=== PATIENT | female | born 1950 | race Caucasian/White ===

== ENCOUNTER 2020-08-07 05:54 | Emergency (ER) | payer MEDICARE, MEDICAID, SELFPAY ==
--- NOTE | ~2020-08-07 | XR_ITS ---
EXAMINATION: XR femur RT min 2V DATE: 08/07/2020 06:18 INDICATION: Right thigh pain. TECHNIQUE: 2 views of right femur on 4 radiographs were obtained. COMPARISON: Hip and pelvis radiographs 04/17/2017 FINDINGS: Bone alignment is normal. No fracture. There is mild right hip osteoarthritis and moderate right knee osteoarthritis. No knee joint effusion. IMPRESSION: 1. Polyarticular osteoarthritis. Reviewed, dictated and finalized at location [facility].
[2020-08-07 05:54] VITALS: BP 140/85; PULSE 96; RESP 16; TEMP 36.8; O2SAT 98
--- NOTE | 2020-08-07 07:30 | ED.LOWEXIN ---
HPI - Extremity Injury (Lower) General Chief Complaint: Extremity Injury, Lower Stated Complaint: r thigh pain Time Seen by Provider: 08/07/20 07:28 Source: patient, EMS and RN notes reviewed Mode of arrival: EMS History of Present Illness HPI Narrative: Patient tripped and fell 3 days ago, subsequently started having pain at the right knee. Patient denies other injuries. Patient denies any fever, chills, nausea, vomiting, diarrhea, urinary symptoms, abdominal pain chest pain shortness of breath or back pain. History of arthritis Related Data Home Medications Medication Instructions Recorded Confirmed lisinopril-hydrochlorothiazide tablet 08/07/20 08/07/20 metformin mg 08/07/20 simvastatin mg 08/07/20 Allergies Allergy/AdvReac Type Severity Reaction Status Date / Time No Known Allergies Allergy Verified 06/14/18 13:39 Review of Systems Review of Systems: Narrative: CONSTITUTIONAL: Denies fever, chills, or sweats. EYES: Denies visual changes, redness, or discharge. ENT: Denies rhinorrhea, congestion, sore throat, or otalgia. CARDIOVASCULAR: Denies chest pain, palpitations, or edema. RESPIRATORY: Denies cough or dyspnea. GASTROINTESTINAL: Denies abdominal pain, nausea, vomiting, or diarrhea. GENITOURINARY: Denies dysuria or hematuria. SKIN: Denies rash or itching. MUSCULOSKELETAL: Denies back pain, joint pain, or myalgia. NEUROLOGIC: Denies headache, numbness, or weakness. PSYCHIATRIC: Denies anxiety or depression. Exam Narrative: Exam Narrative: General appearance: Well-developed, well-nourished Skin: Normal color Head: Normocephalic, nontraumatic Eyes: Clear conjunctiva ENT: Oropharynx normal, ears normal, nose normal Neck: Supple, nontender Chest and respiratory: Airway patent, no respiratory distress, no accessory muscle use Heart: Regular rate/rhythm Abdomen: Soft, nontender, no organomegaly, quiet bowel sounds Vascular: Normal peripheral pulses, normal capillary refill. Musculoskeletal: Right knee exam showed no bruises, no swelling, no deformity, slight anterior medial tenderness, good range of motion. Neurologic: Alert and oriented ?3, t Course Course Emergency Course: Stable Vital Signs Vital signs: Vital Signs Temperature 36.8 C 08/07/20 05:54 Pulse Rate 96 08/07/20 05:54 Respiratory Rate 16 08/07/20 05:54 Blood Pressure 140/85 08/07/20 05:54 Pulse Oximetry 98 08/07/20 05:54 Temperature 36.8 C 08/07/20 05:54 Pulse Rate 96 08/07/20 05:54 Respiratory Rate 16 08/07/20 05:54 Blood Pressure 140/85 08/07/20 05:54 Pulse Oximetry 98 08/07/20 05:54 MDM - Extremity Injury (Lower) MDM Narrative Medical decision making narrative: Right knee contusion/sprain/strain is my concern. X-ray ordered Differential Diagnosis Differential diagnosis: Likely other (Right knee contusion, sprain, strain, fracture) Critical Care Time Critical Care Time Critical Care Time: No Discharge Plan Discharge Clinical Impression: Acute pain of right knee Patient Disposition: Home, Self-Care Condition: Stable Instructions: Knee Pain (ED) Additional Instructions: Return if symptoms are worsening , call your family physician for appointment, take Tylenol as as needed for aches and pain, continue home medications. Prescriptions: New naproxen 375 mg tablet 375 mg PO BID PRN (Reason: pain) Qty: 14 RF: 0 No Action lisinopril-hydrochlorothiazide 20-12.5 mg tablet RF: 0 simvastatin 40 mg tablet RF: 0 metformin 1,000 mg tablet RF: 0 Follow-up/Referrals: Kirsty,Danae Wagner MD [Primary Care Provider] -
--- NOTE | 2020-08-07 07:44 | PC.NURSE ---
LEFT MESSAGE WITH TRE LETTING HER KNOW PT IS HERE PER THE PT'S REQUEST
--- NOTE | 2020-08-07 08:45 | PC.NURSE ---
CALLED PT'S CAYLA TOLEDO AND SHE WILL COME TO ED TO PICK PT UP
[2020-08-07 08:50] VITALS: BP 131/97; PULSE 76; RESP 16; O2SAT 100
== END 2020-08-07 08:50 | disposition home or self-care (01) ==
PROVIDERS: Emergency Provider Emergency Medicine; PCP Family Medicine
DX: M19.90 Unspecified osteoarthritis, unspecified site (principal)
CPT/HCPCS: 73552; 99283

== ENCOUNTER 2020-08-07 15:03 | Inpatient (IN) | payer MEDICARE, MEDICAID, SELFPAY ==
[2020-08-07] VITALS (8 sets, daily range): BP systolic 112–168; BP diastolic 50–95; PULSE 85–98; RESP 16–24; TEMP 36.6–37.1; O2SAT 95–100; BMI 57.0
--- NOTE | ~2020-08-07 | CT_ITS ---
EXAMINATION: CT brain wo con DATE: 08/07/2020 15:43 INDICATION: Fall TECHNIQUE: Computed tomography (CT) of the head was performed without intravenous contrast. The mA wa s adjusted according to patient size. Iterative reconstruction technique was employed. Exam dose: 60 5.33 mGy-cm total exam DLP. COMPARISON: None FINDINGS: Prominent bilateral carotid siphon and supraclinoid internal carotid artery calcifications and vertebrobasilar artery calcification are noted. There is nonspecific diminished attenuation of the subcortical and periventricular cerebral white mat ter, likely due to chronic small vessel ischemic changes. Bilateral basal ganglia calcification. Central and cortical cerebral and cerebellar prominent atrophy. No intracranial mass lesion or hemorrhage or cerebrovascular accident is evident. No midline shift or mass effect effect. No subdural or epidural hematoma. The mastoid air cells and paranasal sinuses are normally developed and aerated. No fracture or bone destruction of the cranial vault is evident. IMPRESSION: Prominent cerebral atherosclerosis and chronic small vessel ischemic changes of cerebral white matter Prominent central and cortical cerebral and cerebellar atrophy Reviewed, dictated and finalized at [facility]. Reviewed, dictated and finalized at location [facility]. IMPRESSION: Prominent cerebral atherosclerosis and chronic small vessel ischem ic changes of cerebral white matter Prominent central and cortical cerebral and cerebellar atrophy
--- NOTE | ~2020-08-07 | MR_ITS ---
EXAMINATION: MR hip RT wo con DATE: 08/09/2020 14:19 INDICATION: Right hip pain. TECHNIQUE: Magnetic resonance imaging (MRI) of the right hip was performed without intravenous contra st. Sequences included axial and coronal PD-weighted FS FSE and axial T1-weighted FSE of the pelvis. Sequences of the hip included 2D FIESTA, T1-weighted fast GRE, and axial, coronal, and sagittal PD-we ighted FS FSE. COMPARISON: Right femur CT 08/08/2020, chest 2 views 06/14/2018 FINDINGS: There is lumbar levoscoliosis and moderate spondylosis. There are chronic compression fractures of L3 on L4. There is a nondisplaced intertrochanteric fracture of proximal right femur. There is mild ost eoarthritis of the hips. There is edema in right gluteus minimus and gluteus medius muscles, consiste nt with mild strains. There is moderate right-sided trochanteric bursitis. There is a small right hip joint effusion. IMPRESSION: 1. Nondisplaced intertrochanteric fracture of proximal right femur. 2. Mild osteoarthritis of the hips. Reviewed, dictated and finalized at location [facility].
--- NOTE | ~2020-08-07 | CT_ITS ---
EXAMINATION: CT femur RT wo con EXAM DATE: 08/08/2020 15:58 INDICATION: Hip/knee pain out of proportion to exam. TECHNIQUE: Spiral CT femur RT was performed without contrast. Axial, coronal and sagittal images w ere reviewed. The dose-length product (DLP) for this examination was 1728.67 mGy-cm. The exposure w as tailored according to patient size (auto mA exposure control), and iterative reconstruction (ASIR) was used as additional dose reduction technique. Correlation is made to x-ray 08/07/2020. FINDINGS: There is acute closed posttraumatic nondisplaced fracture of the greater trochanter, fractu re line is best appreciated on the coronal sequence, fracture lines indicated. No definite evidence t hat this extends through the intertrochanteric region or femoral neck. The right patella, acetabulum and rami intact. There is moderate knee, mild hip primary osteoarthritis. IMPRESSION: Acute nondisplaced right greater trochanteric fracture. These are typically treated con servatively. No definite involvement of femoral neck, but MRI examination without contrast should be considered to exclude that possibility. Reviewed, dictated and finalized at location A. IMPRESSION: Acute nondisplaced right greater trochanteric fracture. These are typically treated conservatively. No definite involvement of femoral neck, but MRI examination without contrast should be considered to exclude that possibil ity.
--- NOTE | ~2020-08-07 | XR_ITS ---
XR chest 1V portable DATE: 08/07/2020 15:56 INDICATION: Confusion, cough TECHNIQUE: Portable AP chest on 08/07/2020 at 1445 hours COMPARISON: 06/14/2018 PA and lateral chest FINDINGS: No pulmonary infiltrate or consolidation, pulmonary vascular congestion or pleural effusion or pneumothorax. Heart size is not optimally assessed on AP projection because of magnification. Diffuse osteopenia. Prominent deformity at the proximal right humerus. IMPRESSION: No active pulmonary disease Reviewed, dictated and finalized at location [facility]. IMPRESSION: No active pulmonary disease
--- NOTE | 2020-08-07 15:06 | ECG_ITS ---
Measurements Intervals [place] Rate: 94 P: 40 WV: 137 QRS: -42 QRSD: 89 T: 34 QT: 349 QTc: 437 Interpretive Statements SINUS RHYTHM LEFT AXIS DEVIATION LOW QRS VOLTAGE IN PRECORDIAL LEADS POOR R WAVE PROGRESSION, ANTERIOR LEADS INFERIOR INFARCT, AGE INDETERMINATE BASELINE ARTIFACT- I, III, AVL, V1 ABNORMAL ECG Electronically Signed On 08-07-2020 19:59:36 CDT by Khoi Correa D.O.
[2020-08-07 16:36] LABS: Add Urine Microscopic? YES; Appearance Urine Cloudy (Clear); Bacteria Urine Trace /hpf; Bilirubin Urine Negative (Negative); Blood Urine Negative (Negative); Color Urine Yellow (Yellow); Glucose Urine UA Negative (Negative); Ketones Urine Negative (Negative); Leukocyte Esterase Ur Trace LEU/UL (Negative); Mucus Urine Rare /lpf; Nitrate Urine Negative (Negative); Protein Urine 2+ mg/dL (Negative); RBC Urine 0-2 /hpf (0-2); Specific Grav Ur 1.016 (1.001-1.035); Squamous Epithelial Cell Urine Rare /hpf (Few); Urobilinogen Urine Negative mg/dL (<2.0)
[2020-08-07 16:54] LABS: Basophils Percent Auto 0.3 % (0.2-1.2); Eosinophils Absolute Auto 0.1 K/mm3 (0-0.3); Eosinophils Percent Auto 0.4 % (0-4.4); Hematocrit 33.4 % (37.0-47.0); Hemoglobin 10.8 g/dL (12.0-15.0); Immature Granulocyte Absolute 0.09 K/mm3 (0.00-0.031); Immature Granulocyte Percent A 0.6 % (0-0.5); Lymphocytes Absolute Auto 1.87 K/mm3 (0.9-3.2); Lymphocytes Percent Auto 12.2 % (18.3-44.2); Mean Corpuscular HGB Conc 32.3 g/dl (32-36); Mean Corpuscular Hemoglobin 28.3 pg (26-34); Mean Corpuscular Volume 87.7 fl (80-100); Mean Platelet Volume 10.3 fl (7.4-10.4); Monocytes Absolute Auto 0.7 K/mm3 (0.1-0.6); Monocytes Percent Auto 4.6 % (2.6-8.5); Neutrophils Absolute Auto 12.6 K/mm3 (1.3-6.7); Neutrophils Percent Auto 81.9 % (45.5-73.1); Platelet Count Result 345 k/mm3 (150-375); Red Blood Count 3.81 M/mm3 (4.2-5.4); White Blood Count 15.3 K/mm3 (4.5-10.0)
[2020-08-07 17:04] LABS: Alanine Aminotransferase 14 U/L (4-35); Albumin Level 4.1 g/dL (3.5-5.1); Alkaline Phosphatase 87 U/L (38-126); Anion Gap 12 mmol/L (8-16); Aspartate Amino Transferase 28 U/L (14-36); Bilirubin,Total 0.5 mg/dL (0.2-1.3); Blood Urea Nitrogen 33 mg/dL (7-17); Calcium 8.9 mg/dL (8.4-10.2); Carbon Dioxide 21 mmol/L (22-30); Chloride 107 mmol/L (98-107); Creatine Kinase 35 U/L (30-135); Estimated CRCL calculation 33 ml/min; Estimated Glomerular Filt Rate 40; Glucose 180 mg/dL (65-105); Sodium 140 mmol/L (137-145)
[2020-08-07 17:06] LABS: Partial Thromboplastin Time 20.5 SECONDS (22.3-36.8); Prothrombin Time 13.4 Seconds (11.1-14.7)
--- NOTE | 2020-08-07 17:06 | ED.WEAKNESS ---
HPI - Weakness General Chief complaint: Weakness Stated complaint: WEAKNESS Time Seen by Provider: 08/07/20 15:06 Source: patient, EMS and RN notes reviewed Mode of arrival: EMS Limitations: no limitations History of Present Illness HPI Narrative: Patient is 69 years old white female came to the emergency room by ambulance because of unable to take care of herself, falling, general weakness over the last few days. Patient lives alone, Patient denies any fever, chills, nausea, vomiting, abdominal pain, back pain, chest pain, shortness of breath or headache. Patient complaining of right knee pain, x-ray earlier today showed no acute abnormality. Related Data Home Medications Medication Instructions Recorded Confirmed lisinopril-hydrochlorothiazide tablet 08/07/20 08/07/20 metformin mg 08/07/20 simvastatin mg 08/07/20 Allergies Allergy/AdvReac Type Severity Reaction Status Date / Time No Known Allergies Allergy Verified 06/14/18 13:39 Review of Systems Review of Systems: Narrative: CONSTITUTIONAL: Denies fever, chills, or sweats. EYES: Denies visual changes, redness, or discharge. ENT: Denies rhinorrhea, congestion, sore throat, or otalgia. CARDIOVASCULAR: Denies chest pain, palpitations, or edema. RESPIRATORY: Denies cough or dyspnea. GASTROINTESTINAL: Denies abdominal pain, nausea, vomiting, or diarrhea. GENITOURINARY: Denies dysuria or hematuria. SKIN: Denies rash or itching. MUSCULOSKELETAL: Denies back pain, joint pain, or myalgia. NEUROLOGIC: Denies headache, numbness, or weakness. PSYCHIATRIC: Denies anxiety or depression. Exam Narrative: Exam Narrative: General appearance: Well-developed, well-nourished, poor hygiene, no family member at the bedside Skin: Normal color Head: Normocephalic, nontraumatic Eyes: Clear conjunctiva ENT: Oropharynx normal, ears normal, nose normal Neck: Supple, nontender Chest and respiratory: Airway patent, no respiratory distress, no accessory muscle use Heart: Regular rate/rhythm Abdomen: Soft, nontender, no organomegaly, quiet bowel sounds Vascular: Normal peripheral pulses, normal capillary refill. Musculoskeletal: Diffuse tenderness of the right knee anteriorly, good range of motion, no swelling or bruises Neurologic: Alert and oriented ?3, MEDICAL OFFICE RECEPTIONIST is normal as tested, no gross motor deficit, hearing impairment Course Course Emergency Course: Stable Vital Signs Vital signs: Vital Signs Temperature 36.6 C 08/07/20 15:10 Pulse Rate 98 08/07/20 15:10 Respiratory Rate 16 08/07/20 15:10 Blood Pressure 150/82 H 08/07/20 15:10 Pulse Oximetry 98 08/07/20 15:10 Temperature 36.6 C 08/07/20 15:10 Pulse Rate 98 08/07/20 15:10 Respiratory Rate 16 08/07/20 15:10 Blood Pressure 150/82 H 08/07/20 15:10 Pulse Oximetry 98 08/07/20 15:10 MDM - Weakness MDM Narrative Medical decision making narrative: Patient came with general weakness and multiple falls. Please look at my differential diagnosis below. Labs, CT head, chest x-ray, UA ordered. Further plan to follow Differential Diagnosis Differential diagnosis: Likely anemia, hypoglycemia, hypothyroidism, rhabdomyolysis, dehydration and other (Electrolyte imbalance, urinary tract infection, pneumonia, intracranial hemorrhage) Lab Data Result diagrams: 08/07/20 16:43 08/07/20 16:43 Labs: Lab Results 08/07/20 08/07/20 08/07/20 Range/Units 15:34 16:22 16:43 WBC 15.3 H (4.5-10.0) K/mm3 RBC 3.81 L (4.2-5.4) M/mm3 Hgb 10.8 L (12.0-15.0) g/dL Hct 33.4 L (37.0-47.0) % MCV 87.7 (80-100) fl MCH 28.3 (26-34) pg MCHC 32.3 (32-36) g/dl RDW 13.0 (11.5-14.5) % P
[2020-08-07] MEDS: ONDANSETRON INJ 4 MG/2 ML VIAL 8 MG IV PUSH (17:56)
[2020-08-07] MEDS: SODIUM CHLORIDE 0.9% IV 1,000 ML 999 ML IV CONT (17:56)
--- NOTE | 2020-08-07 18:31 | PC.NURSE ---
SPOKE WITH TRE (PT'S NIECE) AND GAVE UPDATE PER PT'S REQUEST.
--- NOTE | 2020-08-07 20:27 | PC.NURSE ---
Attempted to call report. States nurse is in iso room and will call back.
--- NOTE | 2020-08-07 20:27 | PC.NURSE ---
Pt presented to ED for fall at home where she denies hitting her head and loc. Pt state she fell because her right leg is sometime painful and gave out on her. Pt states she is in a little bit of pain in regards to right leg and is currently refusing pain medications. Pt noted to be alert and oriented 3-4. Pt malodorous and noted to be living alone. States she sometime has a hard time manipulating her home environment due to her right leg. Caregiver presents to home x2 days per week to assist. Pt has no complaints or concerns voiced at this time and is currently resting on cart in its lowest position with call button and personal items within reach. Vitals are stable and pt in no obvious distress. Advised to press call button for assistance.
[2020-08-07] MEDS: SODIUM CHLORIDE 0.9% IV 1,000 ML 125 ML IV CONT (20:40)
--- NOTE | 2020-08-07 20:50 | PC.NURSE ---
Report called to Crystal. Onofre to send pt to floor.
--- NOTE | 2020-08-07 21:27 | PM.IMHP ---
H&P: HPI History of Present Illness Date/Time: 08/07/20 21:27 Chief Complaint: recurrent falls Narrative: Patient is 69 years old white female came to the emergency room by ambulance because of unable to take care of herself, falling, general weakness over the last few days. Patient lives alone and reports no other isses. no fever, chills, sob, chesatpin, nausea, vomitign, abdominal pain, back pain, headache. she was in the ed earlier with fall and had right knee pain and xray showed arthritis without any fracture. she is noted to ahve uti with leukocytosis. heat ct negative. cxr negative. Review of Systems Review of Systems: Narrative: - CONSTITUTIONAL: Denies weight loss, fever and chills. - HEENT: Denies changes in vision and hearing - RESPIRATORY: Denies SOB and cough. - CV: Denies palpitations and CP. - GI: Denies abdominal pain, nausea, vomiting and diarrhea. - : Denies dysuria and urinary frequency. - MSK: Denies myalgia and joint pain. - SKIN: Denies rash and pruritus. - NEUROLOGICAL: Denies headache and syncope. - PSYCHIATRIC: Denies recent changes in mood. Denies anxiety and depression. All systems reviewed & are unremarkable except as noted in HPI and below Constitutional: Constitutional: Reports fatigue and Reports weakness Neurologic: Reports weakness Endocrine: Endocrine: Reports fatigue PMFSH Social History Social History Smoking status: Never smoker Second hand tobacco smoke exposure: No Alcohol intake: former Substance use: never Gender identity (if verbalized by the patient): Female Sexual Orientation (if Verbalized by the Patient): Straight or Heterosexual Spiritual care concerns: No Meds Home Medications and Allergies Home Medications Medication Instructions Recorded Confirmed Type lisinopril-hydrochlorothiazide tablet 08/07/20 08/07/20 History metformin mg 08/07/20 History naproxen 375 mg PO BID PRN #14 tablet 08/07/20 Rx simvastatin mg 08/07/20 History Allergies Allergy/AdvReac Type Severity Reaction Status Date / Time No Known Allergies Allergy Verified 08/07/20 19:31 Vital Signs Vital Signs - 24 hr 08/07/20 15:10 08/07/20 15:30 08/07/20 16:30 Temperature 98 F Pulse Rate 98 95 90 Respiratory Rate 16 16 20 Blood Pressure 150/82 H 137/76 157/95 H Pulse Oximetry 98 96 97 08/07/20 17:30 08/07/20 18:31 08/07/20 20:31 Temperature 98.7 F Pulse Rate 95 89 85 Respiratory Rate 18 21 H 24 H Blood Pressure 157/92 H 168/79 H 132/75 Pulse Oximetry 100 95 98 Exam Narrative: Exam Narrative: GENERAL: The patient is well developed, not in acute distress HEENT: Nonicteric sclerae, PERRLA, EOMI. Oropharynx clear. Moist mucous membranes. Conjunctivae appear well perfused. CHEST: Chest wall is nontender. HEART: Regular rate and rhythm without murmur, rubs, or gallops LUNGS: Clear to auscultation bilaterally. no respiratory distress ABDOMEN: Soft, positive bowel sounds, non-tender, no organomegaly. SKIN: No rash, no excessive bruising, petechiae, or purpura. NEUROLOGIC: Cranial nerves II-XII intact, alert and oriented x 3, no gross motor deficits EXTREMITIES: no edema, cyanosis or clubbing Extrem: General: normal exam except as noted and no edema H&P: Results Labs Labs: Short CBC 08/07/20 08/07/20 Range/Units 16:43 16:43 WBC 15.3 H (4.5-10.0) K/mm3 Hgb 10.8 L (12.0-15.0) g/dL Hct 33.4 L (37.0-47.0) % Plt Count 345 (150-375) k/mm3 Creatinine 1.30 H (0.7-1.0) mg/dL BMP 08/07/20 16:43 Sodium 140 Potassium 4.0 Chloride 107 Carbon Dioxide 21 L BUN 33 H Creatinine 1.30 H Glucose 180 H Calcium 8.9 Cardiac Enzymes 08/07/20 Range/Units 16:43 Total Creatine Kinase 35 (30-135) U/L Liver Function 08/07/20 Range/Units 16:43 Total Bilirubin 0.5 (0.2-1.3) mg/dL AST 28 (14-36) U/L ALT 14 (4-35) U/L Alkaline Ofe
[2020-08-07] MEDS: SIMVASTATIN 20 MG TABLET 40 MG BY MOUTH (21:30)
[2020-08-07 22:18] LABS: Hemoglobin A1C 6.8 % (<5.7)
--- NOTE | 2020-08-07 22:28 | ADMGEN ---
This patient, Ольга Marie, was admitted to [facility] Room 324-01 at 2205. Patient/family oriented to hospital policies and general routines including ID bracelet, bed and alarms, visiting hours, pain management, procedures, bathroom and other care routines, personal items, smoking policy, room service/diet, and visiting hours. Information on how to activate the Rapid Response Team has been discussed. Patient/Family are encouraged to report perceived risks to care and to ask questions if they do not understand what they are told or what they should do.
[2020-08-08] VITALS (8 sets, daily range): BP systolic 97–141; BP diastolic 58–91; PULSE 71–106; RESP 16–20; TEMP 36.1–36.7; O2SAT 93–100
[2020-08-08 06:27] LABS: Basophils Percent Auto 0.3 % (0.2-1.2); Eosinophils Absolute Auto 0.1 K/mm3 (0-0.3); Hematocrit 30.3 % (37.0-47.0); Hemoglobin 9.5 g/dL (12.0-15.0); Immature Granulocyte Absolute 0.05 K/mm3 (0.00-0.031); Immature Granulocyte Percent A 0.5 % (0-0.5); Lymphocytes Absolute Auto 2.56 K/mm3 (0.9-3.2); Mean Corpuscular HGB Conc 31.4 g/dl (32-36); Mean Corpuscular Hemoglobin 27.9 pg (26-34); Mean Corpuscular Volume 88.9 fl (80-100); Mean Platelet Volume 10.2 fl (7.4-10.4); Monocytes Absolute Auto 0.8 K/mm3 (0.1-0.6); Monocytes Percent Auto 8.5 % (2.6-8.5); Neutrophils Absolute Auto 6.3 K/mm3 (1.3-6.7); Neutrophils Percent Auto 63.7 % (45.5-73.1); Platelet Count Result 320 k/mm3 (150-375); Red Blood Count 3.41 M/mm3 (4.2-5.4); Red Cell Distribution Width 12.9 % (11.5-14.5); White Blood Count 9.9 K/mm3 (4.5-10.0)
[2020-08-08 06:42] LABS: Anion Gap 8 mmol/L (8-16); Blood Urea Nitrogen 30 mg/dL (7-17); Carbon Dioxide 24 mmol/L (22-30); Chloride 110 mmol/L (98-107); Estimated CRCL calculation 51 ml/min; Estimated Glomerular Filt Rate 44; Glucose 111 mg/dL (65-105); Potassium 4.4 mmol/L (3.4-5.0); Sodium 142 mmol/L (137-145)
[2020-08-08 08:15] LABS: Glucose Point of Care 94 mg/dl (65-105)
[2020-08-08 09:16] LABS: Glucose Point of Care 115 mg/dl (65-105)
[2020-08-08 11:26] LABS: Glucose Point of Care 152 mg/dl (65-105)
--- NOTE | 2020-08-08 12:55 | PM.IMPN ---
Progress Note: A&P Assessment and Plan (1) UTI (urinary tract infection): Code(s): N39.0 - Urinary tract infection, site not specified Status: Acute Assessment and Plan: Patient's UA suspicious for UTI although patient is having minimal symptoms with the exception generalized weakness which is new -she was started on ceftriaxone -await urine culture and adjust antibiotics as necessary (2) Unable to ambulate: Code(s): R26.2 - Difficulty in walking, not elsewhere classified Status: Acute Assessment and Plan: Patient tells me that she usually ambulates throughout her house with minimal pain. However, starting yesterday after her fall she has not been able to ambulate without extreme pain. She had pain to palpation and any range of movement to her right leg. -will order CT of femur which will include the knee and the hip -x-ray without acute abnormality -consider restarting naproxen if the CT is negative for acute pathology (3) Weakness: Code(s): R53.1 - Weakness Status: Acute Assessment and Plan: As above -continue antibiotic -continue PT and OT (4) Falls frequently: Code(s): R29.6 - Repeated falls Status: Acute Assessment and Plan: Continue PT and OT (5) MOY (acute kidney injury): Code(s): N17.9 - Acute kidney failure, unspecified Status: Acute Assessment and Plan: Patient's creatinine is 1.2 -continue ceftriaxone -will stop IV fluids at this time as she is eating and will monitor with daily labs (6) Contusion of knee, right: Qualifiers: Encounter type: subsequent encounter Qualified Code(s): S80.01XD - Contusion of right knee, subsequent encounter Code(s): S80.01XA - Contusion of right knee, initial encounter Status: Acute Assessment and Plan: As above (7) Leukocytosis: Code(s): D72.829 - Elevated white blood cell count, unspecified Status: Acute Assessment and Plan: Resolved -continue ceftriaxone (8) Type 2 diabetes mellitus: Code(s): E11.9 - Type 2 diabetes mellitus without complications Status: Acute Assessment and Plan: Last glucose 152 -A1c 6.8 -hold metformin (9) Hypertension: Code(s): I10 - Essential (primary) hypertension Status: Acute Assessment and Plan: Last blood pressure 131/91 -will resume lisinopril and hydrochlorothiazide Time Spent With Patient Time with patient: 25 - 35 minutes Subjective Date/time seen: 08/08/20 12:55 Interval history: Pt is a 69 year old female here for weakness, fall as and right hip/leg pain. Patient was seen today and states she has significant pain in her right leg. She rates this at a 7/10 with no numbness or tingling. She said she fell on this hip yesterday and prior to that she was able to walk around her house with minimal pain. Pt denies nausea, vomiting, fevers, chills, constipation, diarrhea, dysuria, hematuria, chest pain, sob, or abdominal pain. Review of Systems Review of Systems: All systems reviewed & are unremarkable except as noted in HPI and below Exam Narrative: Exam Narrative: General: Overweight patient resting comfortably in bed in no acute distress HEENT: normocephalic Neck: supple Neuro: Alert and oriented x4 CV:RRR Resp:CTA Abd: Soft, non distended. No pain to palpation. Positive bowel sounds Extremities:pain to palpation to the right hip with pain with any ROM exercises. No left leg pain. No swelling. Pulses intact. Objective Data Vital Signs Vital Signs: Vital Signs - 24 hr 08/07/20 15:10 08/07/20 15:30 08/07/20 16:30 Temperature 98 F Pulse Rate 98 95 90 Respiratory Rate 16 16 20 Blood Pressure 150/82 H 137/76 157/95 H Pulse Oximetry 98 96 97 08/07/20 17:30 08/07/20 18:31 08/07/20 20:31 Temperature 98.7 F Pulse Rate 95 89 85 Respiratory Rate 18 21 H 24 H Blood Pressur
[2020-08-08] MEDS: SODIUM CHLORIDE 0.9% IV 1,000 ML 80 ML IV CONT (12:56)
[2020-08-08 17:12] LABS: Glucose Point of Care 115 mg/dl (65-105)
[2020-08-08] MEDS: hydroCHLOROthiazide 12.5 MG CAPSULE PO (18:06)
[2020-08-08] MEDS: lisinopriL 20 MG TABLET PO (18:07)
[2020-08-08] MEDS: SIMVASTATIN 20 MG TABLET 40 MG BY MOUTH (20:44)
[2020-08-09 02:56] LABS: Glucose Point of Care 175 mg/dl (65-105)
[2020-08-09 05:31] VITALS: BP 125/81; PULSE 59; RESP 18; TEMP 36.2; O2SAT 99
[2020-08-09 06:38] LABS: Hematocrit 32.3 % (37.0-47.0); Hemoglobin 10.3 g/dL (12.0-15.0); Mean Corpuscular HGB Conc 31.9 g/dl (32-36); Mean Corpuscular Hemoglobin 28.7 pg (26-34); Mean Platelet Volume 10.2 fl (7.4-10.4); Platelet Count Result 303 k/mm3 (150-375); Red Blood Count 3.59 M/mm3 (4.2-5.4); Red Cell Distribution Width 12.7 % (11.5-14.5); White Blood Count 10.8 K/mm3 (4.5-10.0)
[2020-08-09 06:48] LABS: Anion Gap 5 mmol/L (8-16); Blood Urea Nitrogen 30 mg/dL (7-17); Calcium 8.8 mg/dL (8.4-10.2); Carbon Dioxide 27 mmol/L (22-30); Chloride 108 mmol/L (98-107); Estimated CRCL calculation 60 ml/min; Estimated Glomerular Filt Rate 55; Glucose 112 mg/dL (65-105); Potassium 4.3 mmol/L (3.4-5.0); Sodium 140 mmol/L (137-145)
[2020-08-09 07:05] LABS: Glucose Point of Care 115 mg/dl (65-105)
--- NOTE | 2020-08-09 07:26 | PM.CNOR ---
Assessment and Plan Additional Plan Patient is a 69-year-old female was admitted with inability to ambulate complaining of right knee pain and she says a history of a fall approximately Wednesday when she was waiting for the bus. She mentioned that she had walked to [employer] as well. She cannot be very specific about when her injury occurred but she has had at least a fall and x-rays of her right knee did not show any fracture to some mild arthritis x-ray of her right hip showed no evidence of fracture and the CT scan therefore was obtained which showed a nondisplaced crack in the greater trochanter. She was found to have a urinary tract infection with E coli greater than 100,000 see effusion and is on ceftriaxone for that currently. On exam she is a pleasant female in no acute distress. On the electronic medical record says she weighs 137 kg a BMI of 57.1. She certainly does not appear to be a BMI of 57.1. She does have abdominal obesity. Her right leg is relatively skinny. I can palpate her greater trochanter and surprisingly she does not have much tenderness there. She cannot lift her leg up and when she tries to she feels pain at the medial aspect of the distal femur on the right and the medial aspect of her knee. She has no tenderness to palpation of her right knee or the medial distal femur. When I internally rotate her right leg while she is lying supine she complains of rather severe pain in the medial distal thigh and medial knee. She had a 1+ posterior tibial artery pulse palpable no significant lower extremity edema and she wiggles her toes and denied any numbness or tingling in her right foot on palpation. She was oriented to the year and the month. Impression patient as CT scan evidence of a fracture line extending into the greater trochanter. Based on her clinical exam my concern is that she may have an occult intertrochanteric hip fracture this not showing up on the CT scan. It is uncommon for a greater trochanteric fracture to cause pain to radiate to the medial distal thigh and knee. A femoral neck fracture or fracture through the medial calcar such as with an intertroch fracture commonly refers pain to that area. As the precise distribution of her fracture will dictate her treatment and physical therapy protocol, it we will obtain an MRI scan of her right hip today to evaluate this fully. I have explained this to the patient. She seems understand. We will order SCDs. We will ask the nurse to verify her weight in the computer. She is on Tylenol for pain is comfortable at rest so I think that is appropriate. I think it would be prudent to also start her on Lovenox since she is not ambulatory and she is obese putting her at risk for thromboembolic complications. History of Present Illness HPI Consult date: 08/09/20 Chief complaint: Dehydration, multiple falls, unable to ambulate PMF Past Medical History Medical History (Updated 08/08/20 @ 13:11 by Caty Dalal PA-C) Hypertension Type 2 diabetes mellitus Social History Social History Smoking status: Never smoker Second hand tobacco smoke exposure: No Alcohol intake: former Substance use: never Gender identity (if verbalized by the patient): Female Sexual Orientation (if Verbalized by the Patient): Straight or Heterosexual Spiritual care concerns: No Meds Home Medications and Allergies Home Medications Medication Instructions Recorded Confirmed Type lisinopril-hydrochlorothiazide 1 tablet PO DAILY 08/07/20 08/08/20 History metformin 1,000 mg PO BID 08/07/20 08/08/20 History naproxen 375 mg PO BID PRN #14 tablet 08/07/20 08/07/20 Rx simvastatin 40 mg PO HS 08/07/20 08/08/20 History Allergies Allergy/AdvReac Type Severity Reaction Status Date / Time No Known Allergies Allergy Verified 08/07/20 19:31 Vital Signs Vital Signs - 24 hr 08/08/20 08:00 08/08/20 10:13 08/08/20 14:00
[2020-08-09] MEDS: lisinopriL 20 MG TABLET PO (08:31)
[2020-08-09] MEDS: hydroCHLOROthiazide 12.5 MG CAPSULE PO (08:31)
[2020-08-09] MEDS: ENOXAPARIN 40 MG/0.4 ML SYRINGE SUB-Q (08:41)
--- NOTE | 2020-08-09 11:52 | PCPTNOTE ---
Hold PT awaiting MRI result. Will follow.
[2020-08-09 12:00] LABS: Glucose Point of Care 100 mg/dl (65-105)
--- NOTE | 2020-08-09 12:32 | PCOTNOTE ---
Holding OT until MRI comes back with weightbearing status. Will continue plan of care or reassess if necessary following WB orders.
--- NOTE | 2020-08-09 13:56 | PM.IMPN ---
Progress Note: A&P Assessment and Plan (1) UTI (urinary tract infection): Code(s): N39.0 - Urinary tract infection, site not specified Status: Acute Assessment and Plan: Patient's UA suspicious for UTI although patient is having minimal symptoms with the exception generalized weakness which is new -continue her IV ceftriaxone -awaiting urine culture and adjust antibiotics as necessary - eating and drinking well - alert and oriented x 3 today (2) Unable to ambulate: Code(s): R26.2 - Difficulty in walking, not elsewhere classified Status: Acute Assessment and Plan: Patient tells me that she usually ambulates throughout her house with minimal pain. However, starting yesterday after her fall she has not been able to ambulate without extreme pain. She had pain to palpation and any range of movement to her right leg. - Right femur CT 08/08/2020 Acute nondisplaced right greater trochanteric fracture. These are typically treated conservatively. No definite involvement of femoral neck, but MRI examination without contrast should be considered to exclude that possibility. - MRI results from today: lumbar levoscoliosis and moderate spondylosis. There are chronic compression fractures of L3 on L4. There is a nondisplaced intertrochanteric fracture of proximal right femur. There is mild osteoarthritis of the hips. There is edema in right gluteus minimus and gluteus medius muscles, consistent with mild strains. There is moderate right-sided trochanteric bursitis. There is a small right hip joint effusion. IMPRESSION:1. Nondisplaced intertrochanteric fracture of proximal right femur.2. Mild osteoarthritis of the hips. - following Ortho Surgeon Dr. Vu Recommendations (3) Weakness: Code(s): R53.1 - Weakness Status: Acute Assessment and Plan: As above -continue antibiotic -continue PT and OT (4) Falls frequently: Code(s): R29.6 - Repeated falls Status: Acute Assessment and Plan: Continue PT and OT May need home health RN and PT/OT to evaluation home /safety conditions. (5) MOY (acute kidney injury): Code(s): N17.9 - Acute kidney failure, unspecified Status: Acute Assessment and Plan: Patient's creatinine was elevated 1.2 Creatinine normalized today at 1.0 -continue ceftriaxone -will stop IV fluids at this time as she is eating and will monitor with daily labs - tolerating oral fluids well (6) Contusion of knee, right: Qualifiers: Encounter type: subsequent encounter Qualified Code(s): S80.01XD - Contusion of right knee, subsequent encounter Code(s): S80.01XA - Contusion of right knee, initial encounter Status: Acute Assessment and Plan: As above (7) Leukocytosis: Code(s): D72.829 - Elevated white blood cell count, unspecified Status: Acute Assessment and Plan: Persists and Flucuates elevated, then improved, then elevated again today was 10.8 , after 9.90 yesterday. no fevers or chills noted -continue ceftriaxone (8) Type 2 diabetes mellitus: Code(s): E11.9 - Type 2 diabetes mellitus without complications Status: Acute Assessment and Plan: Last glucose 152 -A1c 6.8 - diabetic - glucose levels have been 111 and 112, controlled -hold metformin (9) Hypertension: Code(s): I10 - Essential (primary) hypertension Status: Acute Assessment and Plan: Last blood pressures were 141/69 , 125/81 -continue lisinopril and hydrochlorothiazide Additional Plan Patient is a 69-year-old female was admitted with inability to ambulate complaining of right knee pain and she says a history of a fall approximately Wednesday when she was waiting for the bus. She mentioned that she had walked to [facility] as well. She cannot be very specific about when her injury occurred but she has had at least a fall and x-rays of her right knee did not show any fracture to so
[2020-08-09 14:00] VITALS: BP 143/93; PULSE 87; RESP 20; TEMP 36.5; O2SAT 96
[2020-08-09 17:11] LABS: Glucose Point of Care 188 mg/dl (65-105)
[2020-08-09] MEDS: SIMVASTATIN 20 MG TABLET 40 MG BY MOUTH (21:30)
[2020-08-09 21:52] LABS: Glucose Point of Care 180 mg/dl (65-105)
[2020-08-09 22:00] VITALS: BP 140/103; PULSE 79; RESP 20; TEMP 36.6; O2SAT 96
[2020-08-10 06:00] VITALS: BP 143/96; PULSE 74; RESP 18; TEMP 36.6; O2SAT 95
[2020-08-10] MEDS: ACETAMINOPHEN 500 MG TABLET 1000 MG PO ×2 (06:44→20:24)
[2020-08-10 07:50] LABS: Glucose Point of Care 145 mg/dl (65-105)
[2020-08-10] MEDS: hydroCHLOROthiazide 12.5 MG CAPSULE PO (08:45)
[2020-08-10] MEDS: lisinopriL 20 MG TABLET PO (08:45)
--- NOTE | 2020-08-10 09:46 | PM.PNORT ---
Progress Note: A&P Additional Plan Patient did have her MRI scan yesterday. The initial radiologist's stated nondisplaced intertrochanteric fracture. I spoke with Dr. Joy the radiologist here this morning and asked him to review the images for clarification and he was kind enough to put an addendum on the chart describing more specifically that this is a fracture that a it involves the posterior tip the greater trochanter and the posterior aspect of the intertrochanteric ridge and does not actually involve the lesser trochanter or the anterior medial cortex of the intertrochanteric femur region. Therefore this is not a fracture that requires open reduction internal fixation as a complete intertrochanteric hip fracture even if displaced would warrant. I have discussed this with the patient. I have explained that I would expect that these nondisplaced fractures will heal within 6 weeks. I think that her risk for extension of this fracture into the intertrochanteric region to complete the fracture necessitating surgical intervention would be very low unless she were to fall. Another fall must be prevented or conversion of this fracture to the more serious true intertrochanteric hip fracture that would require surgical stabilization can occur. I have recommended that she agree to a nursing rehab facility for a period of 6 weeks approximately to allow the fracture to heal where she can be cared for and her risk of falling can be minimized by the assistance provided as she does live it at home alone. We gave her 1 dose of Lovenox yesterday. I was unsure whether we are going to proceed with surgery today prior to completing the MRI scan assessment. I think fit DVT prophylaxis is very appropriate for her during her convalescence over the next 6 weeks and I would recommend Eliquis 2.5 mg twice daily for the next 6 weeks and we will stop the Lovenox. I have asked Physical therapy to mobilize her starting with bed to chair maximum 33% weight-bearing on the right leg. I have discussed this with the patient was quite alert and oriented today. Subjective Subjective Date/Time Seen: 08/10/20 09:46 Objective Data Vital Signs Vital Signs: Vital Signs - 24 hr 08/09/20 14:00 08/09/20 22:00 08/10/20 06:00 Temperature 36.5 C 36.6 C 36.6 C Pulse Rate 87 79 74 Respiratory Rate 20 20 18 Blood Pressure 143/93 H 140/103 H 143/96 H Pulse Oximetry 96 96 95 Intake/Output Intake/Output: Intake & Output 08/07/20 08/08/20 08/09/20 08/10/20 23:59 23:59 23:59 23:59 Intake Total 1050 2660 2500 600 Output Total 757 642 1804 Balance 800 2010 1000 600 Meds/Results Medications: Active Medications Generic Name Dose Route Start Last Admin Trade Name Freq PRN Reason Stop Dose Admin Acetaminophen 1,000 mg 08/08/20 13:17 08/10/20 06:44 Acetaminophen 500 Mg Tablet PO 1,000 mg Q6H PRN Administration Pain Apixaban 2.5 mg 08/10/20 09:45 Apixaban 2.5 Mg Tablet PO Q12HR MARIA DOLORES Dextrose 12.5 gm 08/07/20 21:31 Dextrose 50% 25 Gm/50 Ml Syringe IV PUSH PRN PRN Hypoglycemia Protocol Glucagon 1 mg 08/07/20 21:31 Glucagon For Inj 1 Mg Vial IM PRN PRN Hypoglycemia Protocol Glucose 15 gm 08/07/20 21:31 Glucose Oral Gel 15 Gm Of Glucse In 37.5 Gm Tube PO PRN PRN Hypoglycemia Protocol Hydrochlorothiazide 12.5 mg 08/08/20 09:00 08/10/20 08:45 Hydrochlorothiazide 12.5 Mg Capsule PO 12.5 mg DAILY MARIA DOLORES Administration Dextrose 1,000 mls @ 100 mls/hr 08/07/20 21:31 Dextrose 5% 1,000 Ml IVPB PRN PRN Hypoglycemia Protocol Ceftriaxone Sodium/Dextrose 1 gm in 50 mls @ 100 mls/hr 08/07/20 22:00 08/09/20 21:59 Rocephin 1 Gm/D5w 50 Ml IVPB Infused Q24H MARIA DOLORES Infusion Insulin Aspart 2 - 5 units 08/08/20 08:00 08/10/20 07:53 Insulin Aspart (*Bkc) 100 Units/Ml SUB-Q Not Given TIDWM MARIA DOLORES Protocol Lisinopril 20 mg 08/08/20 09:00
[2020-08-10 09:56] LABS: Hematocrit 31.9 % (37.0-47.0); Hemoglobin 10.4 g/dL (12.0-15.0); Mean Corpuscular HGB Conc 32.6 g/dl (32-36); Mean Corpuscular Hemoglobin 28.2 pg (26-34); Mean Corpuscular Volume 86.4 fl (80-100); Mean Platelet Volume 10.3 fl (7.4-10.4); Platelet Count Result 334 k/mm3 (150-375); Red Blood Count 3.69 M/mm3 (4.2-5.4); Red Cell Distribution Width 12.7 % (11.5-14.5); White Blood Count 14.1 K/mm3 (4.5-10.0)
[2020-08-10 10:06] LABS: Anion Gap 6 mmol/L (8-16); Blood Urea Nitrogen 27 mg/dL (7-17); Calcium 8.9 mg/dL (8.4-10.2); Carbon Dioxide 26 mmol/L (22-30); Chloride 99 mmol/L (98-107); Estimated CRCL calculation 46 ml/min; Estimated Glomerular Filt Rate > 60; Glucose 287 mg/dL (65-105); Potassium 3.9 mmol/L (3.4-5.0); Sodium 131 mmol/L (137-145)
--- NOTE | 2020-08-10 10:46 | PCPTNOTE ---
Received instructions from Dr. Vu regarding patient treatments: she is partial weigth bearing to right leg (no greater than 33#). She is to perform quad sets and ankle pumps, but no heel slides or active leg raise. She may work up to walking with her walker as long as she is able to maintain weight bearing.
[2020-08-10] MEDS: APIXABAN 2.5 MG TABLET PO ×2 (11:06→20:17)
[2020-08-10 11:42] LABS: Glucose Point of Care 159 mg/dl (65-105)
[2020-08-10 14:00] VITALS: BP 144/81; PULSE 78; RESP 18; TEMP 36.2; O2SAT 96
[2020-08-10 16:10] VITALS: O2SAT 96
[2020-08-10 16:43] LABS: Glucose Point of Care 167 mg/dl (65-105)
--- NOTE | 2020-08-10 17:42 | PM.IMPN ---
Progress Note: A&P Assessment and Plan (1) Hypertension: Code(s): I10 - Essential (primary) hypertension Status: Acute Assessment and Plan: Last blood pressures were 141/69 , 125/81 -continue lisinopril and hydrochlorothiazide (2) Type 2 diabetes mellitus: Code(s): E11.9 - Type 2 diabetes mellitus without complications Status: Acute Assessment and Plan: Last glucose 152 -A1c 6.8 - diabetic - glucose levels have been 111 and 112, controlled -hold metformin (3) Leukocytosis: Code(s): D72.829 - Elevated white blood cell count, unspecified Status: Acute Assessment and Plan: Persists and Flucuates elevated, then improved, then elevated again today was 10.8 , after 9.90 yesterday. no fevers or chills noted -continue ceftriaxone (4) Weakness: Code(s): R53.1 - Weakness Status: Acute (5) Unable to ambulate: Code(s): R26.2 - Difficulty in walking, not elsewhere classified Status: Acute (6) Falls frequently: Code(s): R29.6 - Repeated falls Status: Acute (7) MOY (acute kidney injury): Code(s): N17.9 - Acute kidney failure, unspecified Status: Acute (8) Contusion of knee, right: Qualifiers: Encounter type: subsequent encounter Qualified Code(s): S80.01XD - Contusion of right knee, subsequent encounter Code(s): S80.01XA - Contusion of right knee, initial encounter Status: Acute Assessment and Plan: As above (9) Fracture, intertrochanteric, right femur: Code(s): S72.141A - Displaced intertrochanteric fracture of right femur, initial encounter for closed fracture Status: Acute (10) Escherichia coli urinary tract infection: Code(s): N39.0 - Urinary tract infection, site not specified; B96.20 - Unspecified Escherichia coli [E. coli] as the cause of diseases classified elsewhere Status: Acute Additional Plan Patient is a 69-year-old female was admitted with inability to ambulate complaining of right knee pain and she says a history of a fall approximately Wednesday when she was waiting for the bus. She mentioned that she had walked to [facility] as well. She cannot be very specific about when her injury occurred but she has had at least a fall and x-rays of her right knee did not show any fracture to some mild arthritis x-ray of her right hip showed no evidence of fracture and the CT scan therefore was obtained which showed a nondisplaced crack in the greater trochanter. She was found to have a urinary tract infection with E coli greater than 100,000 see effusion and is on ceftriaxone for that currently. On exam she is a pleasant female in no acute distress. On the electronic medical record says she weighs 137 kg a BMI of 57.1. She certainly does not appear to be a BMI of 57.1. She does have abdominal obesity. Her right leg is relatively skinny. I can palpate her greater trochanter and surprisingly she does not have much tenderness there. She cannot lift her leg up and when she tries to she feels pain at the medial aspect of the distal femur on the right and the medial aspect of her knee. She has no tenderness to palpation of her right knee or the medial distal femur. When I internally rotate her right leg while she is lying supine she complains of rather severe pain in the medial distal thigh and medial knee. She had a 1+ posterior tibial artery pulse palpable no significant lower extremity edema and she wiggles her toes and denied any numbness or tingling in her right foot on palpation. She was oriented to the year and the month. Impression patient as CT scan evidence of a fracture line extending into the greater trochanter. Based on her clinical exam my concern is that she may have an occult intertrochanteric hip fracture this not showing up on the CT scan. It is uncommon for a greater trochanteric fracture to cause pain to radiate to the medial distal thigh and kn
[2020-08-10] MEDS: SIMVASTATIN 20 MG TABLET 40 MG BY MOUTH (20:17)
[2020-08-10 21:01] VITALS: O2SAT 95
[2020-08-10 22:00] VITALS: BP 146/92; PULSE 95; RESP 20; TEMP 36.4; O2SAT 95
[2020-08-10 22:08] LABS: Glucose Point of Care 228 mg/dl (65-105)
[2020-08-11 06:00] VITALS: BP 151/80; PULSE 81; RESP 16; TEMP 36.5; O2SAT 99
[2020-08-11 07:30] LABS: Glucose Point of Care 92 mg/dl (65-105)
[2020-08-11] MEDS: hydroCHLOROthiazide 12.5 MG CAPSULE PO (08:16)
[2020-08-11] MEDS: lisinopriL 20 MG TABLET PO (08:17)
[2020-08-11] MEDS: APIXABAN 2.5 MG TABLET PO ×2 (08:17→20:09)
[2020-08-11] MEDS: ACETAMINOPHEN 500 MG TABLET 1000 MG PO ×2 (08:26→17:49)
[2020-08-11 09:17] LABS: Vitamin D 25 Hydroxy 25.6 ng/mL
[2020-08-11 12:05] LABS: Glucose Point of Care 198 mg/dl (65-105)
[2020-08-11 14:00] VITALS: BP 116/85; PULSE 108; RESP 20; TEMP 36.8; O2SAT 100
[2020-08-11 16:26] LABS: Glucose Point of Care 187 mg/dl (65-105)
--- NOTE | 2020-08-11 18:11 | P.PNIM_ITS ---
Progress Note: A&P Assessment and Plan (1) Hypertension: Code(s): I10 - Essential (primary) hypertension Status: Acute Assessment and Plan: Last blood pressures were 141/69 , 125/81 -continue lisinopril and hydrochlorothiazide (2) Type 2 diabetes mellitus: Code(s): E11.9 - Type 2 diabetes mellitus without complications Status: Acute Assessment and Plan: Last glucose 152 -A1c 6.8 - diabetic - glucose levels have been 111 and 112, controlled -hold metformin (3) Leukocytosis: Code(s): D72.829 - Elevated white blood cell count, unspecified Status: Acute Assessment and Plan: Persists and Flucuates elevated, then improved, then elevated again today was 10.8 , after 9.90 yesterday. no fevers or chills noted -continue ceftriaxone (4) Weakness: Code(s): R53.1 - Weakness Status: Acute (5) Unable to ambulate: Code(s): R26.2 - Difficulty in walking, not elsewhere classified Status: Acute (6) Falls frequently: Code(s): R29.6 - Repeated falls Status: Acute (7) MOY (acute kidney injury): Code(s): N17.9 - Acute kidney failure, unspecified Status: Acute (8) Contusion of knee, right: Qualifiers: Encounter type: subsequent encounter Qualified Code(s): S80.01XD - Contusion of right knee, subsequent encounter Code(s): S80.01XA - Contusion of right knee, initial encounter Status: Acute Assessment and Plan: As above (9) Fracture, intertrochanteric, right femur: Code(s): S72.141A - Displaced intertrochanteric fracture of right femur, initial encounter for closed fracture Status: Acute (10) Escherichia coli urinary tract infection: Code(s): N39.0 - Urinary tract infection, site not specified; B96.20 - Unspecified Escherichia coli [E. coli] as the cause of diseases classified elsewhere Status: Acute Additional Plan Patient is a 69-year-old female was admitted with inability to ambulate complaining of right knee pain and she says a history of a fall approximately Wednesday when she was waiting for the bus. She mentioned that she had walked to [facility] as well. She cannot be very specific about when her injury occurred but she has had at least a fall and x-rays of her right knee did not show any fracture to some mild arthritis x-ray of her right hip showed no evidence of fracture and the CT scan therefore was obtained which showed a nondisplaced crack in the greater trochanter. She was found to have a urinary tract infection with E coli greater than 100,000 see effusion and is on ceftriaxone for that currently. On exam she is a pleasant female in no acute distress. On the electronic medical record says she weighs 137 kg a BMI of 57.1. She certainly does not appear to be a BMI of 57.1. She does have abdominal obesity. Her right leg is relatively skinny. I can palpate her greater trochanter and surprisingly she does not have much tenderness there. She cannot lift her leg up and when she tries to she feels pain at the medial aspect of the distal femur on the right and the medial aspect of her knee. She has no tenderness to palpation of her right knee or the medial distal femur. When I internally rotate her right leg while she is lying supine she complains of rather severe pain in the medial distal thigh and medial knee. She had a 1+ posterior tibial artery pulse palpable no significant lower extremity edema and she wiggles her toes and denied any numbness or tingling in her right foot on palpation. She was oriented to
[2020-08-11] MEDS: SIMVASTATIN 20 MG TABLET 40 MG BY MOUTH (20:08)
[2020-08-11 21:32] LABS: Glucose Point of Care 209 mg/dl (65-105)
[2020-08-11 21:40] VITALS: BP 129/89; PULSE 92; RESP 16; TEMP 37.1; O2SAT 96
[2020-08-12 06:00] VITALS: BP 148/60; PULSE 80; RESP 20; TEMP 36.5; O2SAT 98
[2020-08-12 06:43] LABS: Glucose Point of Care 146 mg/dl (65-105)
[2020-08-12] MEDS: hydroCHLOROthiazide 12.5 MG CAPSULE PO (08:45)
[2020-08-12] MEDS: APIXABAN 2.5 MG TABLET PO ×2 (08:46→21:09)
[2020-08-12] MEDS: lisinopriL 20 MG TABLET PO (08:46)
[2020-08-12 11:40] LABS: Glucose Point of Care 160 mg/dl (65-105)
[2020-08-12 12:30] VITALS: BMI 10.0
[2020-08-12] MEDS: ACETAMINOPHEN 500 MG TABLET 1000 MG PO (13:36)
[2020-08-12 14:00] VITALS: BP 168/68; PULSE 96; RESP 20; TEMP 37.1; O2SAT 100
--- NOTE | 2020-08-12 15:45 | PM.IMPN ---
Progress Note: A&P Assessment and Plan (1) Hypertension: Code(s): I10 - Essential (primary) hypertension Status: Acute Assessment and Plan: Continue lisinopril and hydrochlorothiazide (2) Type 2 diabetes mellitus: Code(s): E11.9 - Type 2 diabetes mellitus without complications Status: Acute Assessment and Plan: -A1c 6.8 - diabetic -hold metformin contineu SSI (3) Leukocytosis: Code(s): D72.829 - Elevated white blood cell count, unspecified Status: Acute Assessment and Plan: Persists and Flucuates elevated, then improved, then elevated again no fevers or chills noted -continue ceftriaxone (4) Weakness: Code(s): R53.1 - Weakness Status: Acute (5) Unable to ambulate: Code(s): R26.2 - Difficulty in walking, not elsewhere classified Status: Acute (6) Falls frequently: Code(s): R29.6 - Repeated falls Status: Acute (7) MOY (acute kidney injury): Code(s): N17.9 - Acute kidney failure, unspecified Status: Acute Assessment and Plan: resolved (8) Contusion of knee, right: Qualifiers: Encounter type: subsequent encounter Qualified Code(s): S80.01XD - Contusion of right knee, subsequent encounter Code(s): S80.01XA - Contusion of right knee, initial encounter Status: Acute Assessment and Plan: As above (9) Fracture, intertrochanteric, right femur: Code(s): S72.141A - Displaced intertrochanteric fracture of right femur, initial encounter for closed fracture Status: Acute Assessment and Plan: non operative mgmt per orthopedics. ortho consult reviewed. (10) Escherichia coli urinary tract infection: Code(s): N39.0 - Urinary tract infection, site not specified; B96.20 - Unspecified Escherichia coli [E. coli] as the cause of diseases classified elsewhere Status: Acute Assessment and Plan: ceftrixone 5 days course. culutreuw ith E coli. sensitive. finished the cousre. will stop this. Additional Plan Patient is a 69-year-old female was admitted with inability to ambulate complaining of right knee pain and she says a history of a fall approximately Wednesday when she was waiting for the bus. She mentioned that she had walked to [facility] as well. She cannot be very specific about when her injury occurred but she has had at least a fall and x-rays of her right knee did not show any fracture to some mild arthritis x-ray of her right hip showed no evidence of fracture and the CT scan therefore was obtained which showed a nondisplaced crack in the greater trochanter. She was found to have a urinary tract infection with E coli greater than 100,000 see effusion and is on ceftriaxone for that currently. On exam she is a pleasant female in no acute distress. On the electronic medical record says she weighs 137 kg a BMI of 57.1. She certainly does not appear to be a BMI of 57.1. She does have abdominal obesity. Her right leg is relatively skinny. I can palpate her greater trochanter and surprisingly she does not have much tenderness there. She cannot lift her leg up and when she tries to she feels pain at the medial aspect of the distal femur on the right and the medial aspect of her knee. She has no tenderness to palpation of her right knee or the medial distal femur. When I internally rotate her right leg while she is lying supine she complains of rather severe pain in the medial distal thigh and medial knee. She had a 1+ posterior tibial artery pulse palpable no significant lower extremity edema and she wiggles her toes and denied any numbness or tingling in her right foot on palpation. She was oriented to the year and the month. Impression patient as CT scan evidence of a fracture line extending into the greater trochanter. Based on her clinical exam my concern is that she may have an occult intertrochanteric hip fracture this not showing up on the CT sca
[2020-08-12 16:29] LABS: Glucose Point of Care 167 mg/dl (65-105)
[2020-08-12 20:20] VITALS: PULSE 85; RESP 18; O2SAT 98
[2020-08-12] MEDS: SIMVASTATIN 20 MG TABLET 40 MG BY MOUTH (21:09)
[2020-08-12 21:47] VITALS: BP 136/65; PULSE 85; RESP 18; TEMP 37; O2SAT 98
[2020-08-12 22:58] LABS: Glucose Point of Care 164 mg/dl (65-105)
[2020-08-13 05:31] VITALS: BP 148/76; PULSE 95; RESP 18; TEMP 37; O2SAT 100
[2020-08-13 06:00] LABS: Basophils Absolute Auto 0.1 K/mm3 (0.0-0.1); Basophils Percent Auto 0.4 % (0.2-1.2); Eosinophils Absolute Auto 0.2 K/mm3 (0-0.3); Eosinophils Percent Auto 1.6 % (0-4.4); Hematocrit 32.6 % (37.0-47.0); Hemoglobin 10.6 g/dL (12.0-15.0); Immature Granulocyte Absolute 0.05 K/mm3 (0.00-0.031); Immature Granulocyte Percent A 0.4 % (0-0.5); Lymphocytes Absolute Auto 2.37 K/mm3 (0.9-3.2); Lymphocytes Percent Auto 18.2 % (18.3-44.2); Mean Corpuscular HGB Conc 32.5 g/dl (32-36); Mean Corpuscular Volume 86.2 fl (80-100); Mean Platelet Volume 10.2 fl (7.4-10.4); Neutrophils Absolute Auto 9.3 K/mm3 (1.3-6.7); Neutrophils Percent Auto 71.4 % (45.5-73.1); Platelet Count Result 432 k/mm3 (150-375); Red Blood Count 3.78 M/mm3 (4.2-5.4); Red Cell Distribution Width 12.6 % (11.5-14.5); White Blood Count 13.1 K/mm3 (4.5-10.0)
[2020-08-13 06:50] LABS: Anion Gap 11 mmol/L (8-16); Blood Urea Nitrogen 50 mg/dL (7-17); Calcium 9.4 mg/dL (8.4-10.2); Carbon Dioxide 28 mmol/L (22-30); Chloride 98 mmol/L (98-107); Estimated CRCL calculation 38 ml/min; Estimated Glomerular Filt Rate 49; Glucose 176 mg/dL (65-105); Potassium 4.5 mmol/L (3.4-5.0); Sodium 137 mmol/L (137-145)
[2020-08-13 07:11] LABS: Glucose Point of Care 86 mg/dl (65-105)
[2020-08-13] MEDS: lisinopriL 20 MG TABLET PO (09:25)
[2020-08-13] MEDS: hydroCHLOROthiazide 12.5 MG CAPSULE PO (09:25)
[2020-08-13] MEDS: APIXABAN 2.5 MG TABLET PO (09:25)
[2020-08-13] MEDS: ACETAMINOPHEN 500 MG TABLET 1000 MG PO (09:25)
--- NOTE | 2020-08-13 11:00 | PCPTNOTE ---
PT attempted to see patient this A.M. for treatment, however patient eating lunch. PT will continue to follow per plan of care.
[2020-08-13] MEDS: INSULIN ASPART (*BKC) 100 UNITS/ML SUB-Q (11:46)
[2020-08-13 11:47] LABS: Glucose Point of Care 205 mg/dl (65-105)
[2020-08-13 13:08] LABS: SARS-CoV-2 RNA PCR Negative
[2020-08-13 14:00] VITALS: BP 119/56; PULSE 82; RESP 20; TEMP 36.4; O2SAT 99
--- NOTE | 2020-08-13 14:34 | PM.DS ---
DS: Admitting Diagnosis Admitting Diagnosis Admitting Diagnosis: weakness DS: Discharge Diagnosis Discharge Diagnosis (1) Fracture, intertrochanteric, right femur: Code(s): S72.141A - Displaced intertrochanteric fracture of right femur, initial encounter for closed fracture Status: Acute (2) Weakness: Code(s): R53.1 - Weakness Status: Acute (3) Hypertension: Code(s): I10 - Essential (primary) hypertension Status: Acute (4) Type 2 diabetes mellitus: Code(s): E11.9 - Type 2 diabetes mellitus without complications Status: Acute (5) Leukocytosis: Code(s): D72.829 - Elevated white blood cell count, unspecified Status: Acute (6) Unable to ambulate: Code(s): R26.2 - Difficulty in walking, not elsewhere classified Status: Acute (7) Falls frequently: Code(s): R29.6 - Repeated falls Status: Acute (8) MOY (acute kidney injury): Code(s): N17.9 - Acute kidney failure, unspecified Status: Acute (9) Contusion of knee, right: Qualifiers: Encounter type: subsequent encounter Qualified Code(s): S80.01XD - Contusion of right knee, subsequent encounter Code(s): S80.01XA - Contusion of right knee, initial encounter Status: Acute (10) Escherichia coli urinary tract infection: Code(s): N39.0 - Urinary tract infection, site not specified; B96.20 - Unspecified Escherichia coli [E. coli] as the cause of diseases classified elsewhere Status: Acute DS: Summary Hospital Course Reason for hospitalization: 69yo female with HTN and HLD here for weakness. Please see H&P for details. Hospital Course: 69 years old female came to the emergency room by ambulance because of unable to take care of herself, falling, and general weakness over the last few days. Patient lives alone and reports no other issues. In the emergency room, she was hemodynamically stable. She was Afebrile throughout her hospital course. UA showed 10-15 white cells and trace leukocyte esterase. Urine culture grew E coli that was pansensitive. She was treated with Rocephin and [place] [id number] but normalized before climbing again to 14,000 for unclear reasons. White count better today [id number]. Hgb stable in the 10 range. Cr 1.3 on admisison but this normalized and today, Cr is 1.1 (BUN 50 but no evidence of GI bleed and Hgb climbing; elevated BUN from dehydration? Will hold HCTZ and add PPI). Brain CT showed prominent atherosclerosis, chronic small-vessel disease and prominent atrophy. No acute findings noted. Chest x-ray showed no acute pulmonary disease but did have prominent deformity of the proximal right humerus felt to be old. CT of the femur showed nondisplaced right greater trochanteric fracture. Orthopedics was consulted. MRI of the hip showed again a nondisplaced fracture involving the right posterior superior tip of the greater trochanter. Was felt this could be treated nonsurgically. Patient worked with PT and OT. She was still weak but improved. She is feeling well. She denies any chest pain or shortness of breath. No nausea or vomiting. Eating well. She denies back pain. She overall did well and was transferred to a skilled nurse facility for further care. Status at Discharge Cognitive/behavioral status at discharge: Stable Time Spent with Patient Time attestation: Total time spent providing and/or coordinating discharge services: 35 minutes Time spent: Greater than 30 minutes Exam Narrative: Exam Narrative: AF 97.6 119/56 82 20 99% ra Gen - NARD sitting up in chair Chest - CTA bilaterally, nml RR CV - RRR S1/S2 Abd - Soft, NT/ND, Positive BS Ext - trace pedal edema. Hip flexor 4/5 bilaterally. Dorsi and plantar flexion 4/5 Neuro - Alert and oriented x4 Psych - Nml mood and affect Skin - Warm and dry DS: Data Data Completed and Pending Labs on day of discharge: Labs
[2020-08-13 15:55] LABS: Glucose Point of Care 193 mg/dl (65-105)
== END 2020-08-13 17:55 | DRG 689 ==
LOC: ANHED 17:15 → ANH3MEDSUR 19:41
PROVIDERS: Internal Medicine; Nurse Practitioner; Orthopaedic Surgery; Physician Assistant; Admitting Provider Hospitalist; Emergency Provider Emergency Medicine; PCP Family Medicine; Visit Provider Internal Medicine
DX: N39.0 Urinary tract infection, site not specified (principal); S72.114A Nondisplaced fracture of greater trochanter of right femur, initial encounter for closed fracture; N17.9 Acute kidney failure, unspecified; B96.20 Unspecified Escherichia coli [E. coli] as the cause of diseases classified elsewhere; Z20.822 Contact with and (suspected) exposure to COVID-19; S80.01XA Contusion of right knee, initial encounter; M17.11 Unilateral primary osteoarthritis, right knee; E11.9 Type 2 diabetes mellitus without complications; R53.1 Weakness; R26.2 Difficulty in walking, not elsewhere classified; Z91.81 History of falling; I10 Essential (primary) hypertension; E86.0 Dehydration; E78.5 Hyperlipidemia, unspecified; D72.829 Elevated white blood cell count, unspecified; Z79.84 Long term (current) use of oral hypoglycemic drugs; Z79.899 Other long term (current) drug therapy
CPT/HCPCS: 36415; 51701; 70450; 71045; 73552; 73700; 73721; 80048; 80053; 81001; 82306; 82550; 82948; 83036; 84443; 85025; 85027; 85610; 85730; 87077; 87086; 87088; 87186; 93005; 96374; 97110; 97161; 97165; 97530; 97535; 99283; 99285; A9270; C9803; J0696; J1650; J1815; J2405; J7030; U0003; U0005

== ENCOUNTER 2020-11-21 04:49 | Inpatient (IN) | payer MEDICARE, MEDICAID, SELFPAY ==
[2020-11-21 04:53] VITALS: BP 109/80; PULSE 78; RESP 12; TEMP 36.6; O2SAT 99
--- NOTE | 2020-11-21 04:59 | ECG_ITS ---
Measurements Intervals [place] Rate: 76 P: 65 CT: 143 QRS: -35 QRSD: 97 T: 63 QT: 377 QTc: 424 Interpretive Statements SINUS RHYTHM LEFT AXIS DEVIATION BORDERLINE ST-T WAVE ABNORMALITY- HIGH LATERAL LEADS BASELINE ARTIFACT- I, II, III, AVR, AVL, AVF, V1-V6 BORDERLINE ECG Electronically Signed On 11-22-2020 13:29:46 CDT by Khoi Correa D.O.
[2020-11-21 05:03] LABS: Glucose Point of Care 118 mg/dl (65-105)
[2020-11-21 05:26] LABS: Add Urine Microscopic? YES; Appearance Urine Cloudy (Clear); Bacteria Urine Trace /hpf; Bilirubin Urine Negative (Negative); Blood Urine Negative (Negative); Color Urine Yellow (Yellow); Glucose Urine UA Negative (Negative); Ketones Urine Negative (Negative); Leukocyte Esterase Ur 3+ LEU/UL (Negative); Mucus Urine Rare /lpf; Nitrate Urine Negative (Negative); Protein Urine 2+ mg/dL (Negative); RBC Urine 51-75 /hpf (0-2); Specific Grav Ur 1.013 (1.001-1.035); Urobilinogen Urine Negative mg/dL (<2.0); WBC Clumps Urine Present /HPF; WBC Urine >75 /hpf
[2020-11-21 05:55] LABS: Anion Gap 24 mmol/L (8-16); Blood Urea Nitrogen 77 mg/dL (7-17); Calcium 9.1 mg/dL (8.4-10.2); Carbon Dioxide 12 mmol/L (22-30); Chloride 108 mmol/L (98-107); Estimated CRCL calculation 19 ml/min; Estimated Glomerular Filt Rate 24; Glucose 130 mg/dL (65-110); Potassium 3.2 mmol/L (3.4-5.0); Sodium 144 mmol/L (137-145)
--- NOTE | 2020-11-21 06:13 | ED.GENADULT ---
HPI - General Adult General Chief complaint: Weakness Stated complaint: FEEL FUNNY Time Seen by Provider: 11/21/20 04:53 History of Present Illness HPI narrative: Patient is a 70-year-old female who presents ER with reports of feeling funny, and weak. Cannot elaborate on these vague symptoms. Reports she was seen at a small hospital in [place] and prescribed an unknown antibiotic for her urine 2 days ago. She is unsure where she filled medication. She does not have it with her. Reports poor oral intake. Related Data Home Medications Medication Instructions Recorded Confirmed metformin 1,000 mg PO BID 08/07/20 11/21/20 simvastatin 40 mg PO HS 08/07/20 11/21/20 lisinopril-hydrochlorothiazide 1 tablet PO DAILY 11/21/20 11/21/20 Allergies Allergy/AdvReac Type Severity Reaction Status Date / Time No Known Allergies Allergy Verified 11/21/20 07:59 Review of Systems Review of Systems: All systems reviewed & are unremarkable except as noted in HPI and below Constitutional: Constitutional: Denies chills, Reports fatigue, Denies fever(s) and Reports weakness ENT: Denies nasal congestion and Denies sore throat Gastrointestinal: Gastrointestinal: Denies abdominal pain, Denies nausea and Denies vomiting Genitourinary: Genitourinary: Reports nocturia, Denies dysuria and Denies flank pain PMFSH Past Medical History Medical History (Updated 11/21/20 @ 06:28 by Freddie Daniels MD) Hypertension Type 2 diabetes mellitus Surgical History Surgical History (Updated 11/21/20 @ 06:28 by Freddie Daniels MD) No pertinent past surgical history Social History Social History Smoking status: Never smoker Second hand tobacco smoke exposure: No Alcohol intake: never Substance use: never Substance use type: does not use Gender identity (if verbalized by the patient): Female Sexual Orientation (if Verbalized by the Patient): Straight or Heterosexual Spiritual care concerns: No Exam Narrative: GENERAL: Well-appearing, well-nourished, and in no acute distress. HEAD: Normocephalic, atraumatic. ENT: Mucous membranes moist. CHEST: Clear to auscultation. No respiratory distress. HEART: Regular rate and rhythm. Normal peripheral pulses. ABDOMEN: Soft, nontender, nondistended. EXTREMITIES: Normal range of motion. No edema. SKIN: Warm, dry, no rash. NEURO: Alert and oriented x3. Course Course Emergency Course: Patient to receive bolus of fluids and then continuous fluids. IV ceftriaxone for UTI. Admit to hospitalist service. Vital Signs Vital signs: Vital Signs Temperature 97.9 F 11/21/20 04:53 Pulse Rate 78 11/21/20 04:53 Respiratory Rate 12 11/21/20 04:53 Blood Pressure 109/80 11/21/20 04:53 Pulse Oximetry 99 11/21/20 04:53 Temperature 96.9 F L 11/23/20 04:53 Pulse Rate 61 11/23/20 04:53 Respiratory Rate 20 11/23/20 04:53 Blood Pressure 141/63 H 11/23/20 04:53 Pulse Oximetry 100 11/23/20 04:53 Medical Decision Making Vital Signs Vital Signs: Vital Signs Temperature 97.9 F 11/21/20 04:53 Pulse Rate 78 11/21/20 04:53 Respiratory Rate 12 11/21/20 04:53 Blood Pressure 109/80 11/21/20 04:53 Pulse Oximetry 99 11/21/20 04:53 Temperature 96.9 F L 11/23/20 04:53 Pulse Rate 61 11/23/20 04:53 Respiratory Rate 20 11/23/20 04:53 Blood Pressure 141/63 H 11/23/20 04:53 Pulse Oximetry 100 11/23/20 04:53 Lab Data Result diagrams: 11/23/20 06:11 11/23/20 06:12 Labs: Lab Results 11/21/20 11/21/20 11/21/20 Range/Units 05:00 05:10 05:34 WBC (4.5-10.0) K/mm3 RBC (4.2-5.4) M/mm3 Hgb (12.0-15.0) g/dL Hct (37.0-47.0) % MCV (80-100) fl MCH (26-34) pg MCHC (32-36) g/dl RDW (11.5-14.5) % Plt Count (150-375) k/mm3 MPV (7.4-10.4) fl Immature Gran % (Auto) (0-0.5) % Neut % (Auto) (45.
[2020-11-21] MEDS: SODIUM CHLORIDE 0.9% IV 1,000 ML 999 ML IV CONT (06:42)
[2020-11-21 06:43] VITALS: BP 124/69; PULSE 71; RESP 17; O2SAT 98
[2020-11-21 07:12] LABS: Basophils Absolute Auto 0.1 K/mm3 (0.0-0.1); Basophils Percent Auto 0.4 % (0.2-1.2); Eosinophils Absolute Auto 0.1 K/mm3 (0-0.3); Hemoglobin 10.2 g/dL (12.0-15.0); Immature Granulocyte Absolute 0.04 K/mm3 (0.00-0.031); Immature Granulocyte Percent A 0.3 % (0-0.5); Lymphocytes Absolute Auto 2.22 K/mm3 (0.9-3.2); Lymphocytes Percent Auto 18.2 % (18.3-44.2); Mean Corpuscular HGB Conc 31.9 g/dl (32-36); Mean Corpuscular Hemoglobin 27.6 pg (26-34); Mean Corpuscular Volume 86.7 fl (80-100); Mean Platelet Volume 9.4 fl (7.4-10.4); Monocytes Absolute Auto 0.6 K/mm3 (0.1-0.6); Neutrophils Absolute Auto 9.2 K/mm3 (1.3-6.7); Neutrophils Percent Auto 75.1 % (45.5-73.1); Platelet Count Result 597 k/mm3 (150-375); Red Blood Count 3.69 M/mm3 (4.2-5.4); White Blood Count 12.2 K/mm3 (4.5-10.0)
[2020-11-21 07:40] VITALS: BMI 26.3
--- NOTE | 2020-11-21 07:54 | PC.NURSE ---
This patient, Ольга Marie, was admitted to 2 Medical Room 251-01. Patient/family oriented to hospital policies and general routines including ID bracelet, bed and alarms, visiting hours, pain management, procedures, bathroom and other care routines, personal items, smoking policy, room service/diet, and visiting hours. Information on how to activate the Rapid Response Team has been discussed. Patient/Family are encouraged to report perceived risks to care and to ask questions if they do not understand what they are told or what they should do.
[2020-11-21 09:32] LABS: Glucose Point of Care 113 mg/dl (65-105)
[2020-11-21] MEDS: SODIUM CHLORIDE 0.9% IV 1,000 ML 125 ML IV CONT (10:00)
[2020-11-21 11:38] LABS: Glucose Point of Care 244 mg/dl (65-105)
[2020-11-21] MEDS: INSULIN ASPART (*BKC) 100 UNITS/ML SUB-Q (13:52)
[2020-11-21 14:00] VITALS: BP 132/77; PULSE 96; RESP 20; TEMP 36.9; O2SAT 98
[2020-11-21 17:45] LABS: Glucose Point of Care 187 mg/dl (65-105)
--- NOTE | 2020-11-21 20:11 | PM.IMHP ---
H&P: HPI History of Present Illness Date/Time: 11/21/20 20:11 HPI narrative: This is a 70-year-old lady with a past medical history including but not limited to HTN, NIDDM, dyslipidemia who presents ER with reports of feeling funny, and weak. The patient is a poor historian and is not able to elaborate on these vague symptoms. Reports she was seen at a small hospital in [place] and prescribed an unknown antibiotic for her urine 2 days prior to presentation here. She is unsure where she filled medication. She does not have it with her. Reports poor oral intake. On admission patient is stable and afebrile. Blood and urine cultures are sent. Noted previous urine culture from 07/2020 revealed pansensitive Ecoli. She was started on IV fluids and rocephin. She denies any complaints during my evaluation and her appetite is very good. Patient lives alone and reports no other issues. There is no documented fever, chills, sob, chest pain, nausea, vomiting, abdominal pain, back pain, headache. Back in July 2020 she was admitted with fall and diagnosed with a UTI. Chief Complaint: weakness Review of Systems Review of Systems: All systems reviewed & are unremarkable except as noted in HPI and below PMFSH Past Medical History Medical History (Updated 11/21/20 @ 06:28 by Freddie Daniels MD) Hypertension Type 2 diabetes mellitus Surgical History Surgical History (Updated 11/21/20 @ 06:28 by Freddie Daniels MD) No pertinent past surgical history Social History Social History Smoking status: Never smoker Second hand tobacco smoke exposure: No Alcohol intake: never Substance use: never Substance use type: does not use Gender identity (if verbalized by the patient): Female Sexual Orientation (if Verbalized by the Patient): Straight or Heterosexual Spiritual care concerns: No Meds Home Medications and Allergies Home Medications Medication Instructions Recorded Confirmed Type metformin 1,000 mg PO BID 08/07/20 11/21/20 History simvastatin 40 mg PO HS 08/07/20 11/21/20 History lisinopril-hydrochlorothiazide 1 tablet PO DAILY 11/21/20 11/21/20 History Allergies Allergy/AdvReac Type Severity Reaction Status Date / Time No Known Allergies Allergy Verified 11/21/20 07:59 Vital Signs Vital Signs - 24 hr 11/21/20 04:53 11/21/20 06:43 11/21/20 14:00 Temperature 97.9 F 98.5 F Pulse Rate 78 71 96 Respiratory Rate 12 17 20 Blood Pressure 109/80 124/69 132/77 Pulse Oximetry 99 98 98 Exam Narrative: GENERAL: The patient is alert and oriented, in no apparent distress. She is pleasant and asking for dessert. HEENT: Pupils are equally round and briskly reactive to light. Extraocular muscles are intact. Oral mucous membranes are moist without lesions. NECK: The patient has no noted JVD. No adenopathy is appreciated. CHEST/LUNGS: Lungs are clear bilaterally without rhonchi, rales, or wheezes. There is no subcutaneous air appreciated. There is no tenderness to the chest wall. HEART: The patient has a regular rate and rhythm. No murmurs, rubs, or gallops are appreciated. Distal pulses are 2+. No carotid bruits appreciated. ABDOMEN: The patient?s abdomen is soft, nontender, and nondistended. Bowel sounds are positive. No organomegaly is appreciated. No masses are appreciated. There are no peritoneal signs. There is no Skinner?s sign. EXTREMITIES: The patient has no peripheral edema. There is no focal long bone tenderness or deformity. SKIN: The patient?s skin is warm and dry, without rashes or lesions. PSYCHIATRIC: The patient has normal mental status and has an appropriate affect. NEUROLOGIC: patient is awake, alert and oritented. H&P: Results Labs Labs: Short CBC 11/21/20 Range/Units 06:41 WBC 12.2 H (4.5-10.0) K/mm3 Hgb 10.2 L (12.0-15.0) g/dL Hct 32.0 L (37.0-47.0) % Plt Count 597 H (150-375) k/mm3 [facility] 11/21/20 05:34 [place]
[2020-11-21] MEDS: SIMVASTATIN 20 MG TABLET 40 MG PO (20:21)
[2020-11-21] MEDS: INSULIN GLARGINE (*BKC) 100 UNITS/ML 10 UNITS SUB-Q (20:24)
[2020-11-21 20:35] LABS: Glucose Point of Care 213 mg/dl (65-105)
[2020-11-21 21:11] VITALS: BP 130/60; PULSE 66; RESP 14; TEMP 36.4; O2SAT 98
[2020-11-22] MEDS: SODIUM CHLORIDE 0.9% IV 1,000 ML 125 ML IV CONT ×3 (02:34→22:03)
[2020-11-22 06:00] VITALS: BP 119/55; PULSE 60; RESP 16; TEMP 36.5; O2SAT 92
[2020-11-22 09:00] VITALS: BP 115/54; PULSE 74
[2020-11-22 09:06] LABS: Glucose Point of Care 112 mg/dl (65-105)
--- NOTE | 2020-11-22 11:49 | PM.IMPN ---
Progress Note: A&P Assessment and Plan (1) Acute UTI: Code(s): N39.0 - Urinary tract infection, site not specified Status: Acute Assessment and Plan: Patient presents with vague signs and symptoms of not feeling well after reportedly starting an oral antibiotic for her urine. She has a history of UTI with pansensitive Ecoli and was started appropriately on rocephin. We will follow urine and blood culture results. (2) Acute kidney injury: Code(s): N17.9 - Acute kidney failure, unspecified Status: Acute Assessment and Plan: Likely prerenal versus ATN in the setting of inflammation related hemodynamic shifts. We will continue supportive care with IV fluids and hold ACEI/HCTZ. This is expected to resolve with supportive care. Obtain renal ultrasound to rule out obstruction. (3) Hypertension: Code(s): I10 - Essential (primary) hypertension Status: Acute Assessment and Plan: In the setting of MOY, we can certainly hold both diuretic and ACEI. BP on the low side. No need for BP meds for now. (4) Type 2 diabetes mellitus: Code(s): E11.9 - Type 2 diabetes mellitus without complications Status: Acute Assessment and Plan: Hold metformin in the setting of MOY. Continue insulin sliding scale coverage. (5) Leukocytosis: Code(s): D72.829 - Elevated white blood cell count, unspecified Status: Acute Assessment and Plan: Likely representing inflamation in the setting of urinary infection. (6) Weakness: Code(s): R53.1 - Weakness Status: Acute Assessment and Plan: Generalized weakness and deconditioning . this has been a recurrent issue for this patient . We will have PT evaluate her. (7) Falls frequently: Code(s): R29.6 - Repeated falls Status: Acute Assessment and Plan: Fall precaution and PT evaluation. Patient lives alone. alteration worker evaluation for placement. Subjective Date/time seen: 11/22/20 11:49 S : No distress. Patient did not sleep well last night. No acute complaints. Review of Systems Review of Systems: CONSTITUTIONAL: Negative for any fevers, chills, night sweats, tiredness, fatigue, malaise, anorexia or weight loss. CARDIOVASCULAR: Negative for chest pain, palpitations, dizziness, orthopnea or lower extremity edema. RESPIRATORY: Negative for shortness of breath, cough, wheezing, sputum. GASTROINTESTINAL: Negative for nausea, vomiting, diarrhea, abdominal pain. GENITOURINARY: Negative for frequency, nocturia, dysuria, hematuria. GYNECOLOGIC: Negative for abnormal bleeding. HEMATOLOGIC: Negative for any abnormal bleeding or bruising. MUSCULOSKELETAL: Negative for joint swelling, stiffness or pain. SKIN: Negative for rashes, eruptions, lesions or dryness. NEUROLOGIC: Negative for any focal neurologic complaints. PSYCHIATRIC: Negative for anxiety, panic, depression. Exam Narrative: HEENT: Head: Normocephalic. Eyes: EOMI. Ears: Hearing is grossly normal. Nose and Throat: No mucosal lesions are present. NECK: No carotid bruits. No cervical lymphadenopathy. Trachea is midline. Thyroid not enlarged. CHEST: Lungs are clear to percussion and auscultation. HEART: Has a regular rate. No murmurs. No signs of congestive failure present. ABDOMEN: s/NT/ND EXTREMITIES: no edema NEUROLOGIC: grossly non focal. Objective Data Vital Signs Vital Signs: Vital Signs - 24 hr 11/21/20 14:00 11/21/20 21:11 11/22/20 06:00 Temperature 98.5 F 97.6 F 97.7 F Pulse Rate 96 66 60 Respiratory Rate 20 14 16 Blood Pressure 132/77 130/60 119/55 L Pulse Oximetry 98 98 92 11/22/20 09:00 Temperature Pulse Rate 74 Respiratory Rate Blood Pressure 115/54 L Pulse Oximetry Intake/Output Intake/Output: Intake & Output 11/19/20 11/20/20 11/21/20 11/22/20 23:59 23:59 23:59 23:59 Intake Total 1440 710 Output Total 200 Balance 1240 710 Meds/Results Medications: Active Medicati
[2020-11-22 12:07] LABS: Glucose Point of Care 198 mg/dl (65-105)
[2020-11-22 12:25] LABS: Anion Gap 10 mmol/L (8-16); Blood Urea Nitrogen 48 mg/dL (7-17); Calcium 9.2 mg/dL (8.4-10.2); Carbon Dioxide 19 mmol/L (22-30); Chloride 115 mmol/L (98-107); Estimated CRCL calculation 35 ml/min; Estimated Glomerular Filt Rate 49; Glucose 210 mg/dL (65-110); Potassium 2.9 mmol/L (3.4-5.0); Sodium 144 mmol/L (137-145)
[2020-11-22 13:18] LABS: Basophils Absolute Auto 0.1 K/mm3 (0.0-0.1); Basophils Percent Auto 0.4 % (0.2-1.2); Eosinophils Absolute Auto 0.2 K/mm3 (0-0.3); Eosinophils Percent Auto 1.4 % (0-4.4); Hematocrit 28.5 % (37.0-47.0); Immature Granulocyte Absolute 0.06 K/mm3 (0.00-0.031); Immature Granulocyte Percent A 0.4 % (0-0.5); Lymphocytes Absolute Auto 2.54 K/mm3 (0.9-3.2); Lymphocytes Percent Auto 18.3 % (18.3-44.2); Mean Corpuscular HGB Conc 31.6 g/dl (32-36); Mean Corpuscular Volume 88.5 fl (80-100); Mean Platelet Volume 9.3 fl (7.4-10.4); Monocytes Absolute Auto 0.8 K/mm3 (0.1-0.6); Monocytes Percent Auto 5.6 % (2.6-8.5); Neutrophils Absolute Auto 10.3 K/mm3 (1.3-6.7); Neutrophils Percent Auto 73.9 % (45.5-73.1); Platelet Count Result 455 k/mm3 (150-375); Red Blood Count 3.22 M/mm3 (4.2-5.4); Red Cell Distribution Width 16.2 % (11.5-14.5); White Blood Count 13.9 K/mm3 (4.5-10.0)
[2020-11-22 14:15] VITALS: BP 103/51; PULSE 75; RESP 18; TEMP 36.6; O2SAT 100
[2020-11-22 14:43] VITALS: BMI 26.3
[2020-11-22 15:56] LABS: Glucose Point of Care 157 mg/dl (65-105)
[2020-11-22] MEDS: POTASSIUM CHLORIDE 20 MEQ PACKET (FOR LIQUID) 40 MEQ PO (17:06)
[2020-11-22] MEDS: SIMVASTATIN 20 MG TABLET 40 MG PO (20:13)
[2020-11-22] MEDS: MELATONIN 3 MG TABLET PO (20:13)
[2020-11-22 20:42] VITALS: BP 153/63; PULSE 77; RESP 22; TEMP 36.1; O2SAT 100
[2020-11-22 21:04] LABS: Glucose Point of Care 136 mg/dl (65-105)
[2020-11-22] MEDS: INSULIN GLARGINE (*BKC) 100 UNITS/ML 10 UNITS SUB-Q (21:17)
[2020-11-23 01:03] LABS: Glucose Point of Care 158 mg/dl (65-105)
[2020-11-23 04:53] VITALS: BP 141/63; PULSE 61; RESP 20; TEMP 36.1; O2SAT 100
[2020-11-23] MEDS: SODIUM CHLORIDE 0.9% IV 1,000 ML 125 ML IV CONT ×3 (05:45→23:41)
[2020-11-23 06:51] LABS: Hematocrit 24.8 % (37.0-47.0); Hemoglobin 7.8 g/dL (12.0-15.0); Mean Corpuscular HGB Conc 31.5 g/dl (32-36); Mean Corpuscular Hemoglobin 27.4 pg (26-34); Mean Platelet Volume 9.6 fl (7.4-10.4); Platelet Count Result 416 k/mm3 (150-375); Red Blood Count 2.85 M/mm3 (4.2-5.4); Red Cell Distribution Width 16.1 % (11.5-14.5)
[2020-11-23 07:20] LABS: Alanine Aminotransferase 6 U/L (4-35); Alkaline Phosphatase 82 U/L (38-126); Anion Gap 8 mmol/L (8-16); Aspartate Amino Transferase 12 U/L (14-36); Bilirubin,Total < 0.1 mg/dL (0.2-1.3); Blood Urea Nitrogen 34 mg/dL (7-17); Calcium 8.8 mg/dL (8.4-10.2); Carbon Dioxide 17 mmol/L (22-30); Chloride 118 mmol/L (98-107); Estimated CRCL calculation 42 ml/min; Estimated Glomerular Filt Rate > 60; Glucose 150 mg/dL (65-110); Sodium 143 mmol/L (137-145)
[2020-11-23 07:56] LABS: Glucose Point of Care 125 mg/dl (65-105)
[2020-11-23] MEDS: POTASSIUM CHLORIDE 20 MEQ PACKET (FOR LIQUID) 40 MEQ PO ×3 (08:16→17:14)
[2020-11-23 11:22] LABS: Glucose Point of Care 135 mg/dl (65-105)
--- NOTE | 2020-11-23 11:33 | PM.IMPN ---
Progress Note: A&P Assessment and Plan (1) Acute UTI: Code(s): N39.0 - Urinary tract infection, site not specified Status: Acute Assessment and Plan: Patient currently on rocephin for pansensitive Klebsiella and Ecoli UTI. (2) Acute kidney injury: Code(s): N17.9 - Acute kidney failure, unspecified Status: Acute Assessment and Plan: REsolved. Likely prerenal versus ATN in the setting of inflammation related hemodynamic shifts. We will continue supportive care with IV fluids and hold ACEI. Currently BP is within acceptable range at 141/63 on HCTZ only. Resume ACEI as an outpatient. (3) Hypertension: Code(s): I10 - Essential (primary) hypertension Status: Acute Assessment and Plan: In the setting of MOY, we can certainly hold ACEI. BP at goal with HCTZ only.. (4) Type 2 diabetes mellitus: Code(s): E11.9 - Type 2 diabetes mellitus without complications Status: Acute Assessment and Plan: We held metformin in the setting of MOY. Continue insulin sliding scale coverage. Discharge on metformin. (5) Leukocytosis: Code(s): D72.829 - Elevated white blood cell count, unspecified Status: Acute Assessment and Plan: Likely representing inflamation in the setting of urinary infection. (6) Weakness: Code(s): R53.1 - Weakness Status: Acute Assessment and Plan: Generalized weakness and deconditioning . this has been a recurrent issue for this patient . We will have PT evaluate her. (7) Falls frequently: Code(s): R29.6 - Repeated falls Status: Acute Assessment and Plan: Fall precaution and PT evaluation. Patient lives alone. recycle worker evaluation for placement. (8) Anemia: Code(s): D64.9 - Anemia, unspecified Status: Acute Assessment and Plan: Likley dilutional with hemoglobin drifting down since admission from 10.2-> 9->7.8. Obtain iron studies, stool occult blood and GI consultation. Subjective Date/time seen: 11/23/20 11:33 S Today the patient is examined at the beside. She slept well last night. Appetite is good. She denies any complaints. Review of Systems Review of Systems: All systems reviewed & are unremarkable except as noted in HPI and below Exam Narrative: HEENT: Head: Normocephalic. Eyes: EOMI. Ears: Hearing is grossly normal. Nose and Throat: No mucosal lesions are present. NECK: No carotid bruits. No cervical lymphadenopathy. Trachea is midline. Thyroid not enlarged. CHEST: Lungs are clear to percussion and auscultation. HEART: Has a regular rate. No murmurs. No signs of congestive failure present. ABDOMEN: s/NT/ND EXTREMITIES: no edema NEUROLOGIC: grossly non focal. Objective Data Vital Signs Vital Signs: Vital Signs - 24 hr 11/22/20 14:15 11/22/20 20:42 11/23/20 04:53 Temperature 97.9 F 97.0 F L 96.9 F L Pulse Rate 75 77 61 Respiratory Rate 18 22 H 20 Blood Pressure 103/51 L 153/63 H 141/63 H Pulse Oximetry 100 100 100 Intake/Output Intake/Output: Intake & Output 11/20/20 11/21/20 11/22/20 11/23/20 23:59 23:59 23:59 23:59 Intake Total 1440 3300 1410 Output Total 200 Balance 1240 3300 1410 Meds/Results Medications: Active Medications Generic Name Dose Route Start Last Admin Trade Name Freq PRN Reason Stop Dose Admin Acetaminophen 650 mg 11/21/20 06:21 Acetaminophen 325 Mg Tablet PO Q4H PRN Mild Pain (1-3) or Fever Hydrocodone Bitart/Acetaminophen 1 tab 11/21/20 06:21 Hydrocodone/Acetaminophen (*Crx) 5-325 Mg Tablet PO Q4H PRN Pain Rated 4-6 Dextrose 12.5 gm 11/21/20 12:04 Dextrose 50% 25 Gm/50 Ml Syringe IV PUSH PRN PRN Hypoglycemia Protocol Glucagon 1 mg 11/21/20 12:04 Glucagon For Inj 1 Mg Vial IM PRN PRN Hypoglycemia Protocol Glucose 15 gm 11/21/20 12:04 Glucose Oral Gel 15 Gm Of Glucse In 37.5 Gm Tube PO PRN PRN Hypogl
[2020-11-23 14:00] VITALS: BP 151/62; PULSE 87; RESP 18; TEMP 36.3; O2SAT 100
[2020-11-23 16:40] LABS: Glucose Point of Care 145 mg/dl (65-105)
[2020-11-23 20:43] VITALS: BP 140/65; PULSE 69; RESP 18; TEMP 36.5; O2SAT 98
[2020-11-23] MEDS: MELATONIN 3 MG TABLET PO (21:10)
[2020-11-23] MEDS: SIMVASTATIN 20 MG TABLET 40 MG PO (21:10)
[2020-11-23] MEDS: INSULIN GLARGINE (*BKC) 100 UNITS/ML 10 UNITS SUB-Q (21:13)
[2020-11-23 21:20] LABS: Glucose Point of Care 173 mg/dl (65-105)
[2020-11-23 22:16] LABS: Immunochemical Fecal Occult Bl Positive (N)
[2020-11-23 22:17] LABS: IFOB Positive Control Positive
[2020-11-24 04:42] VITALS: BP 127/61; PULSE 70; RESP 17; TEMP 36.9; O2SAT 99
[2020-11-24 05:58] LABS: Hemoglobin 7.9 g/dL (12.0-15.0); Mean Corpuscular HGB Conc 31.6 g/dl (32-36); Mean Corpuscular Hemoglobin 27.6 pg (26-34); Mean Corpuscular Volume 87.4 fl (80-100); Mean Platelet Volume 9.2 fl (7.4-10.4); Platelet Count Result 342 k/mm3 (150-375); Red Blood Count 2.86 M/mm3 (4.2-5.4); Red Cell Distribution Width 16.1 % (11.5-14.5); White Blood Count 18.3 K/mm3 (4.5-10.0)
[2020-11-24 06:06] LABS: Potassium 3.6 mmol/L (3.4-5.0)
[2020-11-24 06:17] LABS: Iron 13 ug/dL (37-170)
[2020-11-24 06:26] LABS: Percent Iron Saturation 5 % (20-50)
[2020-11-24 08:14] LABS: Glucose Point of Care 167 mg/dl (65-105)
[2020-11-24] MEDS: SODIUM CHLORIDE 0.9% IV 1,000 ML 125 ML IV CONT ×2 (08:28→17:21)
[2020-11-24] MEDS: IRON SUCROSE COMPLEX 100 MG in SODIUM CHLORIDE 0.9% IV 50 ML 220 MG IVPB (09:38)
--- NOTE | 2020-11-24 11:22 | PM.IMPN ---
Progress Note: A&P Assessment and Plan (1) Acute UTI: Code(s): N39.0 - Urinary tract infection, site not specified Status: Acute Assessment and Plan: Patient currently on rocephin for pansensitive Klebsiella and Ecoli UTI. Patient is stable, afebrile and not septic. (2) Acute kidney injury: Code(s): N17.9 - Acute kidney failure, unspecified Status: Acute Assessment and Plan: Resolved. Likely prerenal versus ATN in the setting of inflammation related hemodynamic shifts. We will continue supportive care with IV fluids and hold ACEI. Currently BP is within acceptable range at 141/63 on HCTZ only. Resume ACEI as an outpatient at the time of discharge. (3) Hypertension: Code(s): I10 - Essential (primary) hypertension Status: Acute Assessment and Plan: In the setting of MOY, we have held ACEI. BP at goal with HCTZ only.. (4) Type 2 diabetes mellitus: Code(s): E11.9 - Type 2 diabetes mellitus without complications Status: Acute Assessment and Plan: We held metformin in the setting of MOY. Continue insulin sliding scale coverage. Discharge on metformin. (5) Leukocytosis: Code(s): D72.829 - Elevated white blood cell count, unspecified Status: Acute Assessment and Plan: Likely representing inflammation in the setting of urinary infection. Wbc persistently high. However patient is stable afebrile and does not appear to be septic. We will send cultures and a lactic acid level. (6) Weakness: Code(s): R53.1 - Weakness Status: Acute Assessment and Plan: Generalized weakness and deconditioning . this has been a recurrent issue for this patient . We will have her work with PT. (7) Falls frequently: Code(s): R29.6 - Repeated falls Status: Acute Assessment and Plan: Fall precaution and PT evaluation. Patient lives alone. transmission worker evaluation for placement. (8) Anemia: Code(s): D64.9 - Anemia, unspecified Status: Acute Assessment and Plan: Jared hernandezal with hemoglobin drifting down since admission from 10.2-> 9->7.8. We are supplementing iron with daily iron sucrose. GI has been consulted for additional recommendations. Subjective Date/time seen: 11/24/20 11:22 S : PAtient was examined at the bedside. No complaints. She slept well and ate her breakfast. Review of Systems Review of Systems: All systems reviewed & are unremarkable except as noted in HPI and below Exam Narrative: HEENT: Head: Normocephalic. Eyes: EOMI. Ears: Hearing is grossly diminished. Nose and Throat: No mucosal lesions are present. NECK: No carotid bruits. No cervical lymphadenopathy. Trachea is midline. Thyroid not enlarged. CHEST: Lungs are clear to percussion and auscultation. HEART: Has a regular rate. No murmurs. No signs of congestive failure present. ABDOMEN: S/NT/ND EXTREMITIES: no edema NEUROLOGIC: grossly non focal. Objective Data Vital Signs Vital Signs: Vital Signs - 24 hr 11/23/20 14:00 11/23/20 20:43 11/24/20 04:42 Temperature 97.3 F L 97.7 F 98.5 F Pulse Rate 87 69 70 Respiratory Rate 18 18 17 Blood Pressure 151/62 H 140/65 127/61 Pulse Oximetry 100 98 99 Intake/Output Intake/Output: Intake & Output 11/21/20 11/22/20 11/23/20 11/24/20 23:59 23:59 23:59 23:59 Intake Total 1440 3300 4190 1400 Output Total 200 Balance 1240 3300 4190 1400 Meds/Results Medications: Active Medications Generic Name Dose Route Start Last Admin Trade Name Freq PRN Reason Stop Dose Admin Acetaminophen 650 mg 11/21/20 06:21 Acetaminophen 325 Mg Tablet PO Q4H PRN Mild Pain (1-3) or Fever Hydrocodone Bitart/Acetaminophen 1 tab 11/21/20 06:21 Hydrocodone/Acetaminophen (*Crx) 5-325 Mg Tablet PO Q4H PRN Pain Rated 4-6 Dextrose 12.5 gm 11/21/20 12:04 Dextrose 50% 25 Gm/50 Ml Syringe IV PUSH PRN PRN Hypoglycemia Protocol Gluca
[2020-11-24 12:08] LABS: Lactic Acid Reflex 0.9 mmol/L (0.7-2.1)
[2020-11-24 12:14] LABS: Glucose Point of Care 122 mg/dl (65-105)
--- NOTE | 2020-11-24 12:41 | WPDGICN ---
Assessment and Plan Assessment and plan (1) Iron deficiency anemia: Code(s): D50.9 - Iron deficiency anemia, unspecified Status: Acute Assessment and Plan: no overt gib but after hydration her hb dropped and now has positive occult blood in stools plan egd and colonoscopy Wednesday continue to monitor (2) Occult blood positive stool: Code(s): R19.5 - Other fecal abnormalities Status: Acute Assessment and Plan: will need scopes (3) Acute UTI: Code(s): N39.0 - Urinary tract infection, site not specified Status: Acute Assessment and Plan: on antibiotics (4) Acute kidney injury: Code(s): N17.9 - Acute kidney failure, unspecified Status: Acute Assessment and Plan: resolved after fluids and medical treatment (5) Hypertension: Code(s): I10 - Essential (primary) hypertension Status: Acute (6) Type 2 diabetes mellitus: Code(s): E11.9 - Type 2 diabetes mellitus without complications Status: Acute (7) Weakness: Code(s): R53.1 - Weakness Status: Acute GI Consult Note Consult date/time: 11/24/20 12:41 Reason for consult: FABIANA, FOBT + HPI: Ольга Marie is a 70 year old female with past medical history of HTN, DM admitted 3 days ago with generalized weakness. She is poor historian and only has vague symptoms. She was diagnosed with UTI and also acute renal failure on arrival with creatinine 2 but normalized after medical treatment. Hb on arrival 10 and down to mid 7's after fluids but also had positive occult blood in stools. Patient does not remember having scopes, she denies overt gib. She is still weak but denies abdominal pain or nausea. Review of Systems Constitutional: Constitutional: Reports fatigue Eyes: Eyes: Denies blurry vision ENT: Reports system reviewed and no additional complaints, except as documented Cardiovascular: Cardiovascular: Denies chest pain Respiratory: Respiratory: Denies dyspnea Gastrointestinal: Gastrointestinal: Denies hematochezia and Denies nausea Genitourinary: Genitourinary: Denies hematuria Musculoskeletal: Musculoskeletal: Denies neck pain Integumentary/Breasts: Skin/Breast: Denies dry skin Neurologic: Denies headache(s) Psychiatric: Psychiatric: Reports no additional psychiatric complaints PMFSH Past Medical History Medical History (Updated 11/24/20 @ 12:45 by Joel Singh MD) Hypertension Iron deficiency anemia Occult blood positive stool Type 2 diabetes mellitus Surgical History Surgical History (Updated 11/21/20 @ 06:28 by Freddie Daniels MD) No pertinent past surgical history Social History Social History Smoking status: Never smoker Second hand tobacco smoke exposure: No Alcohol intake: never Substance use: never Substance use type: does not use Gender identity (if verbalized by the patient): Female Sexual Orientation (if Verbalized by the Patient): Straight or Heterosexual Spiritual care concerns: No Meds Home Medications and Allergies Home Medications Medication Instructions Recorded Confirmed Type metformin 1,000 mg PO BID 08/07/20 11/21/20 History simvastatin 40 mg PO HS 08/07/20 11/21/20 History lisinopril-hydrochlorothiazide 1 tablet PO DAILY 11/21/20 11/21/20 History Allergies Allergy/AdvReac Type Severity Reaction Status Date / Time No Known Allergies Allergy Verified 11/21/20 07:59 Vital Signs Vital Signs - 24 hr 11/23/20 14:00 11/23/20 20:43 11/24/20 04:42 Temperature 97.3 F L 97.7 F 98.5 F Pulse Rate 87 69 70 Respiratory Rate 18 18 17 Blood Pressure 151/62 H 140/65 127/61 Pulse Oximetry 100 98 99 Exam Const: General: comfortable and no acute distress HENMT: General nose exam: Normal nares present Eyes: General: appearance normal, both eyes and all related structures Neck: Neck: no JVD Resp: Auscultati
[2020-11-24 14:00] VITALS: BP 132/79; PULSE 97; RESP 20; TEMP 36.7; O2SAT 99
[2020-11-24 17:24] LABS: Glucose Point of Care 150 mg/dl (65-105)
[2020-11-24] MEDS: SIMVASTATIN 20 MG TABLET 40 MG PO (20:47)
[2020-11-24] MEDS: INSULIN GLARGINE (*BKC) 100 UNITS/ML 10 UNITS SUB-Q (20:48)
[2020-11-24] MEDS: MELATONIN 3 MG TABLET PO (20:48)
[2020-11-24 22:00] VITALS: BP 140/77; PULSE 70; RESP 21; TEMP 36.6; O2SAT 100
[2020-11-24 22:26] LABS: Glucose Point of Care 170 mg/dl (65-105)
[2020-11-25] MEDS: SODIUM CHLORIDE 0.9% IV 1,000 ML 125 ML IV CONT ×3 (02:11→18:53)
[2020-11-25 06:00] VITALS: BP 135/82; PULSE 67; RESP 21; TEMP 36.4; O2SAT 100
[2020-11-25 06:06] LABS: Hematocrit 24.5 % (37.0-47.0); Hemoglobin 7.7 g/dL (12.0-15.0); Mean Corpuscular HGB Conc 31.4 g/dl (32-36); Mean Corpuscular Hemoglobin 28.4 pg (26-34); Mean Corpuscular Volume 90.4 fl (80-100); Platelet Count Result 320 k/mm3 (150-375); Red Blood Count 2.71 M/mm3 (4.2-5.4); Red Cell Distribution Width 15.9 % (11.5-14.5); White Blood Count 18.8 K/mm3 (4.5-10.0)
[2020-11-25 06:45] LABS: Anion Gap 9 mmol/L (8-16); Blood Urea Nitrogen 19 mg/dL (7-17); Calcium 8.8 mg/dL (8.4-10.2); Carbon Dioxide 21 mmol/L (22-30); Chloride 113 mmol/L (98-107); Estimated CRCL calculation 42 ml/min; Estimated Glomerular Filt Rate > 60; Glucose 145 mg/dL (65-110); Potassium 3.1 mmol/L (3.4-5.0); Sodium 143 mmol/L (137-145)
[2020-11-25 08:42] LABS: Glucose Point of Care 123 mg/dl (65-105)
[2020-11-25] MEDS: POTASSIUM CHLORIDE 20 MEQ TABLET 40 MEQ PO (09:24)
[2020-11-25] MEDS: IRON SUCROSE COMPLEX 100 MG in SODIUM CHLORIDE 0.9% IV 50 ML 200 MG IVPB (09:24)
--- NOTE | 2020-11-25 10:18 | WPDGIPROGNO ---
Progress Note: A&P Assessment and Plan (1) Iron deficiency anemia: Code(s): D50.9 - Iron deficiency anemia, unspecified Status: Acute Assessment and Plan: no overt gib but had FOBT + with jarvis will proceed with egd and colonoscopy tomorrow (2) Occult blood positive stool: Code(s): R19.5 - Other fecal abnormalities Status: Acute (3) Acute UTI: Code(s): N39.0 - Urinary tract infection, site not specified Status: Acute Assessment and Plan: on treatment (4) Acute kidney injury: Code(s): N17.9 - Acute kidney failure, unspecified Status: Acute Assessment and Plan: resolved (5) Hypertension: Code(s): I10 - Essential (primary) hypertension Status: Acute (6) Falls frequently: Code(s): R29.6 - Repeated falls Status: Acute Assessment and Plan: getting PT, she is deconditioned Subjective Date/time seen: 11/25/20 10:18 Interval history: no new events, she is comfortable Review of Systems Review of Systems: All systems reviewed & are unremarkable except as noted in HPI and below Exam Const: General: comfortable and no acute distress Other: participating with physical therapy, still weak HENMT: General nose exam: Normal nares present Eyes: General: appearance normal, both eyes and all related structures Neck: Neck: no JVD Resp: Auscultation: clear to auscultation bilaterally Cardio: Rate: regular rate Rhythm: regular rhythm GI: Inspection: non-distended GI Palp: Yes Soft to palpation and No Guarding due to palpation present (GI) Auscultation: normal bowel sounds Skin: General skin exam: no rashes or lesions noted Neuro: Speech: normal speech Motor exam (neuro): Normal motor muscle tone present throughout Extrem: General: normal to inspection Psych: Mental Status: mental status grossly normal Objective Data Vital Signs Vital Signs: Vital Signs - 24 hr 11/24/20 14:00 11/24/20 22:00 11/25/20 06:00 Temperature 98.0 F 97.9 F 97.5 F L Pulse Rate 97 70 67 Respiratory Rate 20 21 H 21 H Blood Pressure 132/79 140/77 135/82 Pulse Oximetry 99 100 100 Intake/Output Intake/Output: Intake & Output 11/22/20 11/23/20 11/24/20 11/25/20 23:59 23:59 23:59 23:59 Intake Total 3300 4190 2795 1530 Balance 3300 4190 2795 1530 Meds/Results Medications: Active Medications Generic Name Dose Route Start Last Admin Trade Name Freq PRN Reason Stop Dose Admin Acetaminophen 650 mg 11/21/20 06:21 Acetaminophen 325 Mg Tablet PO Q4H PRN Mild Pain (1-3) or Fever Hydrocodone Bitart/Acetaminophen 1 tab 11/21/20 06:21 Hydrocodone/Acetaminophen (*Crx) 5-325 Mg Tablet PO Q4H PRN Pain Rated 4-6 Bisacodyl 20 mg 11/25/20 17:00 Bisacodyl 5 Mg Tablet Ec PO 11/25/20 17:01 ONCE ONE Dextrose 12.5 gm 11/21/20 12:04 Dextrose 50% 25 Gm/50 Ml Syringe IV PUSH PRN PRN Hypoglycemia Protocol Glucagon 1 mg 11/21/20 12:04 Glucagon For Inj 1 Mg Vial IM PRN PRN Hypoglycemia Protocol Glucose 15 gm 11/21/20 12:04 Glucose Oral Gel 15 Gm Of Glucse In 37.5 Gm Tube PO PRN PRN Hypoglycemia Protocol Hydrochlorothiazide 12.5 mg 11/22/20 09:00 Hydrochlorothiazide 12.5 Mg Capsule PO QAM MARIA DOLORES Sodium Chloride 1,000 mls @ 125 mls/hr 11/21/20 06:25 11/25/20 02:11 Normal Saline Iv IV CONT 125 mls/hr .Q8H MARIA DOLORES Administration Ceftriaxone Sodium/Dextrose 1 gm in 50 mls @ 100 mls/hr 11/22/20 06:00 11/25/20 07:00 Rocephin 1 Gm/D5w 50 Ml IVPB Infused Q24H MARIA DOLORES Infusion Dextrose 1,000 mls @ 100 mls/hr 11/21/20 12:04 Dextrose 5% 1,000 Ml IVPB PRN PRN Hypoglycemia Protocol Iron Sucrose 100 mg/ Sodium 55 mls @ 220 mls/hr 11/24/20 09:00 11/25/20 09:24 Chloride IVPB 11/28/20 09:01 200 mls/hr QAM MARIA DOLORES Administration Insulin Aspart 3 - 6 units 11/21/20 12:00 11/25/20 08:49 Insulin
--- NOTE | 2020-11-25 10:56 | PM.IMPN ---
Progress Note: A&P Assessment and Plan (1) Acute UTI: Code(s): N39.0 - Urinary tract infection, site not specified Status: Acute Assessment and Plan: Patient currently on rocephin for pansensitive Klebsiella and Ecoli UTI. Patient is stable, afebrile and not septic. 11/25/20 10:56 Patient with a UTI urine culture is growing Klebsiella pneumonia and E coli sensitive Rocephin and being treated, patient states feeling better denies any dysuria or frequency of urination abdominal pain nausea or vomiting, patient was seen by GI stool Hemoccult is positive, no overt bleeding, recommending EGD and colonoscopy which is scheduled for tomorrow will continue to monitor and further recommendation to follow. (2) Acute kidney injury: Code(s): N17.9 - Acute kidney failure, unspecified Status: Acute Assessment and Plan: Resolved. Likely prerenal versus ATN in the setting of inflammation related hemodynamic shifts. We will continue supportive care with IV fluids and hold ACEI. Currently BP is within acceptable range at 141/63 on HCTZ only. Resume ACEI as an outpatient at the time of discharge. (3) Hypertension: Code(s): I10 - Essential (primary) hypertension Status: Acute Assessment and Plan: In the setting of MOY, we have held ACEI. BP at goal with HCTZ only.. (4) Type 2 diabetes mellitus: Code(s): E11.9 - Type 2 diabetes mellitus without complications Status: Acute Assessment and Plan: We held metformin in the setting of MOY. Continue insulin sliding scale coverage. Discharge on metformin. (5) Leukocytosis: Code(s): D72.829 - Elevated white blood cell count, unspecified Status: Acute Assessment and Plan: Likely representing inflammation in the setting of urinary infection. Wbc persistently high. However patient is stable afebrile and does not appear to be septic. We will send cultures and a lactic acid level. (6) Weakness: Code(s): R53.1 - Weakness Status: Acute Assessment and Plan: Generalized weakness and deconditioning . this has been a recurrent issue for this patient . We will have her work with PT. (7) Falls frequently: Code(s): R29.6 - Repeated falls Status: Acute Assessment and Plan: Fall precaution and PT evaluation. Patient lives alone. 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 (8) Anemia: Code(s): D64.9 - Anemia, unspecified Status: Acute Assessment and Plan: Jared medrano with hemoglobin drifting down since admission from 10.2-> 9->7.8. We are supplementing iron with daily iron sucrose. GI has been consulted for additional recommendations. Subjective Date/time seen: 11/25/20 10:56 Patient with a UTI urine culture is growing Klebsiella pneumonia and E coli sensitive Rocephin and being treated, patient states feeling better denies any dysuria or frequency of urination abdominal pain nausea or vomiting, patient was seen by GI stool Hemoccult is positive, no overt bleeding, recommending EGD and colonoscopy which is scheduled for tomorrow will continue to monitor and further recommendation to follow. Review of Systems Review of Systems: All systems reviewed & are unremarkable except as noted in HPI and below Exam Narrative: Patient is comfortable, NAD HEENT: eyes are clear and none icteric LUNGS:CTA HEART: RR S1S2 ABD: BS+, Soft and nontender Lower extremities: no edema SKIN: nonjaundiced Neuro: grossly intact. Objective Data Vital Signs Vital Signs: Vital Signs - 24 hr 11/24/20 14:00 11/24/20 22:00 11/25/20 06:00 Temperature 98.0 F 97.9 F 97.5 F L Pulse Rate 97 70 67 Respiratory Rate 20 21 H 21 H Blood Pressure 132/79 140/77 135/82 Pulse Oximetry 99 100 100 Intake/Output Intake/Output: Intake & Output 11/22/20 11/23/20 11/24/20 11/25/20 23:59 23:59 23:59 23:59 Intake Total 3300 4190 2795 2530 Balance 3300 4190 2795 2530 Meds/Results Medicat
[2020-11-25 11:55] LABS: Glucose Point of Care 129 mg/dl (65-105)
[2020-11-25 14:00] VITALS: BP 156/63; PULSE 76; RESP 20; TEMP 36.8; O2SAT 100
[2020-11-25 16:34] LABS: Glucose Point of Care 132 mg/dl (65-105)
[2020-11-25] MEDS: BISACODYL 5 MG TABLET EC 20 MG PO (17:22)
[2020-11-25] MEDS: polyethylene glycoL 3350 238 GM BOTTLE PO (17:22)
[2020-11-25 17:50] VITALS: O2SAT 99
[2020-11-25 20:00] VITALS: PULSE 64; RESP 20; O2SAT 100
[2020-11-25] MEDS: INSULIN GLARGINE (*BKC) 100 UNITS/ML 10 UNITS SUB-Q (20:26)
[2020-11-25] MEDS: SIMVASTATIN 20 MG TABLET 40 MG PO (20:28)
[2020-11-25] MEDS: MELATONIN 3 MG TABLET PO (20:28)
[2020-11-25 20:48] VITALS: BP 169/65; PULSE 64; RESP 20; TEMP 36.7; O2SAT 100
[2020-11-25 21:24] LABS: Glucose Point of Care 138 mg/dl (65-105)
[2020-11-26] MEDS: SODIUM CHLORIDE 0.9% IV 1,000 ML 125 ML IV CONT ×2 (03:51→20:51)
[2020-11-26] MEDS: MAGNESIUM CITRATE 300 ML BTL PO (03:52)
[2020-11-26 05:18] LABS: Hematocrit 22.9 % (37.0-47.0); Hemoglobin 7.1 g/dL (12.0-15.0); Mean Corpuscular Volume 90.2 fl (80-100); Platelet Count Result 258 k/mm3 (150-375); Red Blood Count 2.54 M/mm3 (4.2-5.4); Red Cell Distribution Width 15.9 % (11.5-14.5); White Blood Count 14.8 K/mm3 (4.5-10.0)
[2020-11-26 05:30] VITALS: BP 127/60; PULSE 73; RESP 22; TEMP 37.1; O2SAT 95
[2020-11-26 06:05] LABS: Anion Gap 8 mmol/L (8-16); Blood Urea Nitrogen 16 mg/dL (7-17); Calcium 8.5 mg/dL (8.4-10.2); Carbon Dioxide 18 mmol/L (22-30); Chloride 114 mmol/L (98-107); Estimated CRCL calculation 42 ml/min; Estimated Glomerular Filt Rate > 60; Glucose 119 mg/dL (65-110); Potassium 2.8 mmol/L (3.4-5.0); Sodium 140 mmol/L (137-145)
[2020-11-26 06:57] LABS: Glucose Point of Care 104 mg/dl (65-105)
--- NOTE | 2020-11-26 09:00 | PC.NURSE ---
This nurse presented to the patients room to perform the morning assessment. Overnight the patient was to have a bowel prep for today's colonoscopy. Per senior engineering tech nurse the patient refused to complete the bowel prep and refused the magnesium citrate this morning due to not being cleared out. This nurse once again attempted to instruct the patient to complete the bowel prep in order for her to get her EGD and colonoscopy done today due to the fact she had an incident of blood stool. The patient repeatedly state that she was not going to have any more tests done and she was not drinking anything else to make herself have a bowel movement she didn't care what was going to happen to her. This nurse called the GI lab to inform them of the update and they proceeded to come up to discuss with the patient about the procedures and see what could be accomplished.
[2020-11-26 10:07] LABS: Glucose Point of Care 100 mg/dl (65-105)
[2020-11-26 10:08] VITALS: BP 146/82; PULSE 88; RESP 20; TEMP 36.6; O2SAT 98
--- NOTE | 2020-11-26 10:08 | WPDANESEPPF ---
Anes - Initial Pre Proc Eval Procedure: Operation Date: 11/26/20 14:15 Proposed Procedures p Esophagogastroduodenoscopy & Colonoscopy - Joel Singh MD Date/Time: 11/26/20 10:08 Surgeon: Joseluis Gamino MD Pre Op Diagnosis: uti,rikki Patient Data Age: 70 Gender: F Height: 1.55 m Weight: 63.2 kg Last Vital Signs Temp 37.1 C 11/26/20 05:30 Pulse 73 11/26/20 05:30 Resp 22 H 11/26/20 05:30 BP 127/60 11/26/20 05:30 Pulse Ox 95 11/26/20 05:30 Allergies Allergy/AdvReac Type Severity Reaction Status Date / Time No Known Allergies Allergy Verified 11/26/20 10:07 Home Medications Medication Instructions Recorded Confirmed Type metformin 1,000 mg PO BID 08/07/20 11/21/20 History simvastatin 40 mg PO HS 08/07/20 11/21/20 History lisinopril-hydrochlorothiazide 1 tablet PO DAILY 11/21/20 11/21/20 History Laboratory Tests 11/25/20 11/25/20 11/25/20 11:42 16:21 20:24 WBC RBC Hgb Hct MCV MCH MCHC RDW Plt Count MPV Sodium Potassium Chloride Carbon Dioxide Anion Gap BUN Creatinine Estim Creat Clear Calc Estimated GFR Glucose POC Capillary Glucose 129 mg/dl H mg/dl 132 mg/dl H mg/dl 138 mg/dl H mg/dl (65-105) (65-105) (65-105) Calcium 11/26/20 11/26/20 11/26/20 05:02 05:02 06:48 WBC 14.8 K/mm3 H K/mm3 (4.5-10.0) RBC 2.54 M/mm3 L M/mm3 (4.2-5.4) Hgb 7.1 g/dL L g/dL (12.0-15.0) Hct 22.9 % L % (37.0-47.0) MCV 90.2 fl fl (80-100) MCH 28.0 pg pg (26-34) MCHC 31.0 g/dl L g/dl (32-36) RDW 15.9 % H % (11.5-14.5) Plt Count 258 k/mm3 k/mm3 (150-375) MPV 10.0 fl fl (7.4-10.4) Sodium 140 mmol/L mmol/L (137-145) Potassium 2.8 mmol/L L* mmol/L (3.4-5.0) Chloride 114 mmol/L H mmol/L (98-107) Carbon Dioxide 18 mmol/L L mmol/L (22-30) Anion Gap 8 mmol/L mmol/L (8-16) BUN 16 mg/dL mg/dL (7-17) Creatinine 0.90 mg/dL mg/dL (0.7-1.0) Estim Creat Clear Calc 42 ml/min ml/min Estimated GFR > 60 (59 - ) Glucose 119 mg/dL H mg/dL (65-110) POC Capillary Glucose 104 mg/dl mg/dl (65-105) Calcium 8.5 mg/dL mg/dL (8.4-10.2) 11/26/20 10:05 WBC RBC Hgb Hct MCV MCH MCHC RDW Plt Count MPV Sodium Potassium Chloride Carbon Dioxide Anion Gap BUN Creatinine Estim Creat Clear Calc Estimated GFR Glucose POC Capillary Glucose 100 mg/dl mg/dl (65-105) Calcium Patient hx anesthesia problems: none Family hx anesthesia problems: none PMFSH Past Medical History Medical History (Updated 11/24/20 @ 12:45 by Joel Singh MD) Hypertension Iron deficiency anemia Occult blood positive stool Type 2 diabetes mellitus Surgical History Surgical History (Updated 11/21/20 @ 06:28 by Freddie Daniels MD) No pertinent past surgical history Social History Social History Smoking status: Never smoker Second hand tobacco smoke exposure: No Alcohol intake: never Substance use: never Substance use type: does not use Gender identity (if verbalized by the patient): Female Sexual Orientation (if Verbalized by the Patient): Straight or Heterosexual Spiritual care concerns: No Anes - Eval Final PreProcedure Day of Procedure 11/26/20 10:08 Patient weight: overweight Heart: regular rate and rhythm Lungs: clear to auscultation and normal air movement Airwa
[2020-11-26] MEDS: LACTATED RINGERS 1,000 ML 150 ML IV CONT (10:17)
--- NOTE | 2020-11-26 10:38 | PCPTNOTE ---
Attempted to see pt for PT session but pt is currently off the floor for an EGD. Will check back later as schedule allows and pt is available/appropriate.
[2020-11-26 11:10] VITALS: BP 135/85; PULSE 86; RESP 38; O2SAT 93
[2020-11-26 11:20] VITALS: BP 156/68; PULSE 77; RESP 25; O2SAT 100
[2020-11-26 12:24] LABS: Glucose Point of Care 84 mg/dl (65-105)
[2020-11-26 14:00] VITALS: BP 135/82; BP 138/65; PULSE 82; PULSE 86; RESP 22; RESP 24; TEMP 36.8; TEMP 37.2; O2SAT 100; O2SAT 98
--- NOTE | 2020-11-26 14:26 | PC.NURSE ---
On 11/26/20, the student, Camila Mock, provided care and completed [facility] documentation on this patient. I have reviewed the student's documentation and agree with the findings.
[2020-11-26] MEDS: IRON SUCROSE COMPLEX 100 MG in SODIUM CHLORIDE 0.9% IV 50 ML 220 MG IVPB (16:11)
--- NOTE | 2020-11-26 17:41 | PM.IMPN ---
Progress Note: A&P Assessment and Plan (1) Anemia: Code(s): D64.9 - Anemia, unspecified Status: Acute Assessment and Plan: Jared dilutional with hemoglobin drifting down since admission from 10.2-> 9->7.8. We are supplementing iron with daily iron sucrose. GI has been consulted EGD showing no esophagitis or Valderrama's, Multiple nonbleeding ulcers in the duodenal bulb and antrum and body of the stomach; biopsies pending Per GI recommendations, we will avoid NSAIDs, and resume diet and 40 b.i.d. Protonix Plan for EGD in 3 months as an outpatient along with colonoscopy with bowel prep Monitor hemoglobin tomorrow Continue IV iron in the morning (2) Acute UTI: Code(s): N39.0 - Urinary tract infection, site not specified Status: Acute Assessment and Plan: downgrade ceftriaxone to bactrim - susceptible kleibsiella complete 10 day t/x given symptomatic uti (3) Acute kidney injury: Code(s): N17.9 - Acute kidney failure, unspecified Status: Acute Assessment and Plan: Resolved. Likely prerenal versus ATN in the setting of inflammation related hemodynamic shifts. We will continue supportive care with IV fluids and hold ACEI. Currently BP is within acceptable range at 141/63 on HCTZ only. Resume ACEI as an outpatient at the time of discharge. (4) Hypertension: Code(s): I10 - Essential (primary) hypertension Status: Acute Assessment and Plan: In the setting of MOY, we have held ACEI. BP at goal with HCTZ only.. (5) Type 2 diabetes mellitus: Code(s): E11.9 - Type 2 diabetes mellitus without complications Status: Acute Assessment and Plan: We held metformin in the setting of MOY. Continue insulin sliding scale coverage. Discharge on metformin. (6) Leukocytosis: Code(s): D72.829 - Elevated white blood cell count, unspecified Status: Acute Assessment and Plan: Likely representing inflammation in the setting of urinary infection. Wbc persistently high. However patient is stable afebrile and does not appear to be septic. We will send cultures and a lactic acid level. (7) Weakness: Code(s): R53.1 - Weakness Status: Acute Assessment and Plan: Generalized weakness and deconditioning . this has been a recurrent issue for this patient . We will have her work with PT. (8) Falls frequently: Code(s): R29.6 - Repeated falls Status: Acute Assessment and Plan: Fall precaution and PT evaluation. Patient lives alone. 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 Additional Plan EGD today showing multiple ulcers in the duodenal bulb and gastric body and antrum as likely explanations of anemia. Will keep patient on b.i.d. Protonix and resume diet. Continue IV iron in the mornings and monitor hemoglobin tomorrow. GI will follow with EGD and colonoscopy in 3 months as an outpatient. Transition from IV ceftriaxone to p.o. Bactrim for UTI based on Klebsiella susceptibility today. Time Spent With Patient Time with patient: less than 15 minutes Subjective Date/time seen: 11/26/20 17:41 no acute complaints Review of Systems Review of Systems: All systems reviewed & are unremarkable except as noted in HPI and below Exam Const: General: no acute distress Resp: Effort & Inspection: normal respiratory effort Auscultation: clear to auscultation bilaterally Cardio: Rate: regular rate Rhythm: regular rhythm GI: GI Palp: Yes Soft to palpation and No Tenderness to palpation present (GI) Objective Data Vital Signs Vital Signs: Vital Signs - 24 hr 11/25/20 17:50 11/25/20 20:00 11/25/20 20:48 Temperature 98.1 F Pulse Rate 64 64 Respiratory Rate 20 20 Blood Pressure 169/65 H Pulse Oximetry 99 100 100 11/26/20 05:30 11/26/20 10:08 11/26/20 11:10 Temperature 98.8 F 98 F Pulse Rate 73 88 86 Respiratory Rate 22 H 20 38 H Blood Pressure 127/60 146/82 H 135/85 Pulse Oximetry 95 98 93 11/26/20
[2020-11-26 18:03] LABS: Glucose Point of Care 135 mg/dl (65-105)
[2020-11-26] MEDS: SIMVASTATIN 20 MG TABLET 40 MG PO (20:40)
[2020-11-26] MEDS: PANTOPRAZOLE 40 MG TABLET PO (20:40)
[2020-11-26] MEDS: MELATONIN 3 MG TABLET PO (20:40)
[2020-11-26] MEDS: INSULIN GLARGINE (*BKC) 100 UNITS/ML 10 UNITS SUB-Q (20:42)
[2020-11-26 21:01] VITALS: BP 132/80; PULSE 76; RESP 17; TEMP 37.2; O2SAT 100
[2020-11-26 21:04] LABS: Glucose Point of Care 155 mg/dl (65-105)
[2020-11-27 04:56] VITALS: BP 133/67; PULSE 72; RESP 18; TEMP 36.9; O2SAT 96
[2020-11-27] MEDS: SODIUM CHLORIDE 0.9% IV 1,000 ML 125 ML IV CONT ×2 (05:49→20:32)
[2020-11-27 06:08] LABS: Alanine Aminotransferase 8 U/L (4-35); Albumin Level 2.8 g/dL (3.5-5.1); Alkaline Phosphatase 78 U/L (38-126); Anion Gap 10 mmol/L (8-16); Aspartate Amino Transferase 13 U/L (14-36); Bilirubin,Total 0.1 mg/dL (0.2-1.3); Blood Urea Nitrogen 17 mg/dL (7-17); Calcium 8.6 mg/dL (8.4-10.2); Carbon Dioxide 17 mmol/L (22-30); Chloride 113 mmol/L (98-107); Estimated CRCL calculation 47 ml/min; Estimated Glomerular Filt Rate > 60; Glucose 134 mg/dL (65-110); Magnesium 1.2 mg/dL (1.6-2.3); Phosphorus 3.6 mg/dL (2.5-4.5); Potassium 3.3 mmol/L (3.4-5.0); Sodium 140 mmol/L (137-145)
[2020-11-27 06:09] LABS: Basophils Percent Auto 0.2 % (0.2-1.2); Eosinophils Absolute Auto 0.1 K/mm3 (0-0.3); Eosinophils Percent Auto 1.1 % (0-4.4); Hematocrit 23.7 % (37.0-47.0); Hemoglobin 7.2 g/dL (12.0-15.0); Immature Granulocyte Absolute 0.06 K/mm3 (0.00-0.031); Immature Granulocyte Percent A 0.6 % (0-0.5); Immature Platelet Fraction Pct 3.5 % (0.9-11.2); Lymphocytes Absolute Auto 1.18 K/mm3 (0.9-3.2); Mean Corpuscular HGB Conc 30.4 g/dl (32-36); Mean Corpuscular Hemoglobin 28.5 pg (26-34); Mean Corpuscular Volume 93.7 fl (80-100); Mean Platelet Volume 10.7 fl (7.4-10.4); Monocytes Absolute Auto 0.6 K/mm3 (0.1-0.6); Monocytes Percent Auto 5.7 % (2.6-8.5); Neutrophils Absolute Auto 7.9 K/mm3 (1.3-6.7); Neutrophils Percent Auto 80.4 % (45.5-73.1); Platelet Count Result 300 k/mm3 (150-375); Red Blood Count 2.53 M/mm3 (4.2-5.4); Red Cell Distribution Width 15.8 % (11.5-14.5); White Blood Count 9.8 K/mm3 (4.5-10.0)
[2020-11-27 06:54] LABS: Anisocytosis 1+ (NORMAL); Platelet Estimate Adequate (Adequate)
[2020-11-27 06:55] LABS: Ovalocytes 1+ (NORMAL)
[2020-11-27 06:56] LABS: Macrocytosis 1+ (NORMAL)
[2020-11-27 07:24] LABS: Glucose Point of Care 129 mg/dl (65-105)
[2020-11-27 08:08] VITALS: BP 144/71; PULSE 72; RESP 20; TEMP 37.2; O2SAT 100
--- NOTE | 2020-11-27 08:24 | PCOTNOTE ---
Attempted to see patient this am, however patient refused stating, Because. Just Because. Pt declined ADLs and activity out of bed at this time.
--- NOTE | 2020-11-27 08:52 | WPDANESPN ---
Anes - Prog Note Post-Op Date/Time: 11/27/20 08:52 Cardiovascular status: normal Respiratory status: normal Airway patency: baseline Mental status: baseline Post-Op hydration status: normal Vital Signs: Last Vital Signs Temp 98.9 F 11/27/20 08:08 Pulse 72 11/27/20 08:08 Resp 20 11/27/20 08:08 BP 144/71 H 11/27/20 08:08 Pulse Ox 100 11/27/20 08:08 Pain Score (VAS): 0 I/O: Intake & Output 11/26/20 11/27/20 11/27/20 23:59 07:59 15:59 Intake Total 595 1200 Balance 595 1200 Laboratory Tests 11/27/20 05:32 11/27/20 05:32 11/26/20 11/26/20 11/26/20 10:05 12:21 17:55 WBC RBC Hgb Hct MCV MCH MCHC RDW Plt Count MPV Immature Gran % (Auto) Neut % (Auto) Lymph % (Auto) Lawrence % (Auto) Eos % (Auto) Baso % (Auto) Lymph # (Auto) Lawrence # (Auto) Eos # (Auto) Baso # (Auto) Abs Immat Gran (auto) Absolute Neuts (auto) Absolute Nucleated RBC Nucleated RBC % Platelet Estimate % Immature Plt Fraction Anisocytosis Macrocytosis Ovalocytes Sodium Potassium Chloride Carbon Dioxide Anion Gap BUN Creatinine Estim Creat Clear Calc Estimated GFR Glucose POC Capillary Glucose 100 84 135 H Calcium Phosphorus Magnesium Total Bilirubin AST ALT Alkaline Phosphatase Total Protein Albumin 11/26/20 11/27/20 11/27/20 20:43 05:32 05:32 WBC 9.8 RBC 2.53 L Hgb 7.2 L Hct 23.7 L MCV 93.7 MCH 28.5 MCHC 30.4 L RDW 15.8 H Plt Count 300 MPV 10.7 H Immature Gran % (Auto) 0.6 H Neut % (Auto) 80.4 H Lymph % (Auto) 12.0 L Lawrence % (Auto) 5.7 Eos % (Auto) 1.1 Baso % (Auto) 0.2 Lymph # (Auto) 1.18 Lawrence # (Auto) 0.6 Eos # (Auto) 0.1 Baso # (Auto) 0.0 Abs Immat Gran (auto) 0.06 H Absolute Neuts (auto) 7.9 H Absolute Nucleated RBC 0.0 Nucleated RBC % 0.0 Platelet Estimate Adequate % Immature Plt Fraction 3.5 Anisocytosis 1+ Macrocytosis 1+ Ovalocytes 1+ Sodium 140 Potassium 3.3 L Chloride 113 H Carbon Dioxide 17 L Anion Gap 10 BUN 17 Creatinine 0.80 Estim Creat Clear Calc 47 Estimated GFR > 60 Glucose 134 H POC Capillary Glucose 155 H Calcium 8.6 Phosphorus 3.6 Magnesium 1.2 L Total Bilirubin 0.1 L AST 13 L ALT 8 Alkaline Phosphatase 78 Total Protein 6.0 L Albumin 2.8 L 11/27/20 07:21 WBC RBC Hgb Hct MCV MCH MCHC RDW Plt Count MPV Immature Gran % (Auto) Neut % (Auto) Lymph % (Auto) Lawrence % (Auto) Eos % (Auto) Baso % (Auto) Lymph # (Auto) Lawrence # (Auto) Eos # (Auto) Baso # (Auto) Abs Immat Gran (auto) Absolute Neuts (auto) Absolute Nucleated RBC Nucleated RBC % Platelet Estimate % Immature Plt Fraction Anisocytosis Macrocytosis Ovalocytes Sodium Potassium Chloride Carbon Dioxide Anion Gap BUN Creatinine Estim Creat Clear Calc Estimated GFR Glucose POC Capillary Glucose 129 H Calcium Phosphorus Magnesium Total Bilirubin AST ALT Alkaline Phosphatase Total Protein Albumin Post-procedural complaints: none Patient Feedback: Patient satisfied with anesthetic care.
[2020-11-27] MEDS: POTASSIUM CHLORIDE 20 MEQ TABLET 40 MEQ PO (08:56)
[2020-11-27] MEDS: PANTOPRAZOLE 40 MG TABLET PO ×2 (08:56→20:30)
[2020-11-27 08:57] LABS: Immature Reticulocyte Fraction 21.7 % (3.0-15.9); Reticulocytes Absolute 0.05 B/L (32.2-175.7)
[2020-11-27] MEDS: IRON SUCROSE COMPLEX 100 MG in SODIUM CHLORIDE 0.9% IV 50 ML 220 MG IVPB (08:57)
[2020-11-27 09:21] LABS: Lactate Dehydrogenase 335 U/L (313-618)
[2020-11-27] MEDS: MAGNESIUM SULF 4 GM/WATER100ML 4 GM/100 ML BAG IVPB (09:37)
[2020-11-27 10:24] LABS: Folic Acid 8.2 ng/mL (2.76->20)
--- NOTE | 2020-11-27 10:31 | PCNFU ---
Nutrition Follow-Up Complete: Increased protein/kcal needs related to increased demands for healing as evidenced by unhealed stage II on left buttock. Goal: Patient will consume 75% of meals/supplements or greater. Patient is progressing towards goal. No new goal at this time. Pt current nutrition is Heart Healthy diet. Last recorded weight is 63.2 kg. Bowel Motility: + BM 11/25/2020 Labs Reviewed: Hgb 7.2, Hct 23.7, Alb 2.8, K 3.3, Glu 134 Meds Noted: Glucagon, Glucose, Hydrochlorothiazide, Novolog, Lantus, Prinivil, Protonix, Zocor, Septra Ds Additional Notes: Checked in with patient. Patient reports not having a good appetite lately but is enjoying the food. On average she has been consuming 17% of meals. She is taking Torey BID providing 90 calories and 2.5 grams of protein to help heal her stage II left buttocks pressure ulcer. Follow up in 5 days.
[2020-11-27 11:46] LABS: Glucose Point of Care 147 mg/dl (65-105)
--- NOTE | 2020-11-27 12:28 | PM.IMPN ---
Progress Note: A&P Assessment and Plan (1) Anemia: Code(s): D64.9 - Anemia, unspecified Status: Acute Assessment and Plan: EGD showing Multiple nonbleeding ulcers in the duodenal bulb and antrum and body of the stomach; biopsies pending Per GI recommendations, we will avoid NSAIDs, and resume diet and 40 b.i.d. Protonix Plan for EGD in 3 months as an outpatient along with colonoscopy with bowel prep Monitor hemoglobin Continue IV iron each morning reticulocyte count normal, haptoglobin pending (2) Acute UTI: Code(s): N39.0 - Urinary tract infection, site not specified Status: Acute Assessment and Plan: continue Bactrim to complete 10 day treatment Patient's symptoms are feeling a lot better, essentially at baseline (3) Acute kidney injury: Code(s): N17.9 - Acute kidney failure, unspecified Status: Acute Assessment and Plan: Resolved. Likely prerenal versus ATN in the setting of inflammation related hemodynamic shifts. We will continue supportive care with IV fluids and hold ACEI. Currently BP is within acceptable range at 141/63 on HCTZ only. Resume ACEI as an outpatient at the time of discharge. (4) Hypertension: Code(s): I10 - Essential (primary) hypertension Status: Acute Assessment and Plan: In the setting of MOY, we held lisinopril, will resume today (5) Type 2 diabetes mellitus: Code(s): E11.9 - Type 2 diabetes mellitus without complications Status: Acute Assessment and Plan: We held metformin in the setting of MOY. Continue insulin sliding scale coverage. Discharge on metformin. (6) Weakness: Code(s): R53.1 - Weakness Status: Acute Assessment and Plan: Generalized weakness and deconditioning . this has been a recurrent issue for this patient . We will have her work with PT. (7) Falls frequently: Code(s): R29.6 - Repeated falls Status: Acute Assessment and Plan: Fall precaution and PT evaluation. Patient lives alone. 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 Additional Plan UTI symptoms are improving, however anemia persistent with hemoglobin of 7.2. Although EGD yesterday did show that ulcers in the duodenum and stomach are likely responsible, and patient is being treated accordingly, her hemoglobin has not yet reached a safe level, we will continue IV iron and obtain other serum studies to rule out other causes of anemia before hopeful discharge tomorrow. Subjective Date/time seen: 11/27/20 12:28 No acute medical complaints, patient does not have shortness of breath or chest pain, improving belly pain Review of Systems Review of Systems: All systems reviewed & are unremarkable except as noted in HPI and below Exam Const: General: no acute distress Neck: Neck: no JVD Resp: Effort & Inspection: normal respiratory effort Auscultation: clear to auscultation bilaterally Cardio: Rate: regular rate Rhythm: regular rhythm GI: GI Palp: Yes Soft to palpation and No Tenderness to palpation present (GI) Objective Data Vital Signs Vital Signs: Vital Signs - 24 hr 11/26/20 14:00 11/26/20 21:01 11/27/20 04:56 Temperature 98.9 F 98.9 F 98.5 F Pulse Rate 82 76 72 Respiratory Rate 22 H 17 18 Blood Pressure 135/82 132/80 133/67 Pulse Oximetry 100 100 96 11/27/20 08:08 Temperature 98.9 F Pulse Rate 72 Respiratory Rate 20 Blood Pressure 144/71 H Pulse Oximetry 100 Intake/Output Intake/Output: Intake & Output 11/24/20 11/25/20 11/26/20 11/27/20 23:59 23:59 23:59 23:59 Intake Total 2795 4055 2885 1200 Balance 2795 4055 2885 1200 Meds/Results Medications: Active Medications Generic Name Dose Route Start Last Admin Trade Name Freq PRN Reason Stop Dose Admin Acetaminophen 650 mg 11/21/20 06:21 Acetaminophen 325 Mg Tablet PO Q4H PRN Mild Pain (1-3) or Fever Hydrocodone Bitart/Acetaminophen 1 tab 11/21/20 06:21 Hydrocodone
[2020-11-27 13:45] VITALS: BP 144/71; PULSE 79; RESP 18; TEMP 37; O2SAT 100
--- NOTE | 2020-11-27 15:16 | PC.NURSE ---
On 11/27/20, the student, [ADRIANNA POTTS], provided care and completed [facility] documentation on this patient. I have reviewed the student's documentation and agree with the findings.
--- NOTE | 2020-11-27 16:29 | WPDGIPROGNO ---
Progress Note: A&P Assessment and Plan (1) Peptic ulcer disease: Code(s): K27.9 - Peptic ulcer, site unspecified, unspecified as acute or chronic, without hemorrhage or perforation Status: Acute Assessment and Plan: most likely cause of anemia patient will need ppi residential repeat egd in 3 months and we can also do a colonoscopy same time (she did not drink prep yesterday) (2) Iron deficiency anemia: Code(s): D50.9 - Iron deficiency anemia, unspecified Status: Acute (3) Occult blood positive stool: Code(s): R19.5 - Other fecal abnormalities Status: Acute Assessment and Plan: colonoscopy as outpatient (4) Acute UTI: Code(s): N39.0 - Urinary tract infection, site not specified Status: Acute (5) Weakness: Code(s): R53.1 - Weakness Status: Acute Subjective Date/time seen: 11/27/20 16:29 Interval history: no new events, EGD yesterday with gastric and duodenal ulcers Review of Systems Review of Systems: All systems reviewed & are unremarkable except as noted in HPI and below Exam Const: General: comfortable and no acute distress Other: participating with physical therapy, still weak HENMT: General nose exam: Normal nares present Eyes: General: appearance normal, both eyes and all related structures Neck: Neck: no JVD Resp: Auscultation: clear to auscultation bilaterally Cardio: Rate: regular rate Rhythm: regular rhythm GI: Inspection: non-distended GI Palp: Yes Soft to palpation and No Guarding due to palpation present (GI) Auscultation: normal bowel sounds Skin: General skin exam: no rashes or lesions noted Neuro: Speech: normal speech Motor exam (neuro): Normal motor muscle tone present throughout Extrem: General: normal to inspection Psych: Mental Status: mental status grossly normal Objective Data Vital Signs Vital Signs: Vital Signs - 24 hr 11/26/20 21:01 11/27/20 04:56 11/27/20 08:08 Temperature 98.9 F 98.5 F 98.9 F Pulse Rate 76 72 72 Respiratory Rate 17 18 20 Blood Pressure 132/80 133/67 144/71 H Pulse Oximetry 100 96 100 11/27/20 13:45 Temperature 98.6 F Pulse Rate 79 Respiratory Rate 18 Blood Pressure 144/71 H Pulse Oximetry 100 Intake/Output Intake/Output: Intake & Output 11/24/20 11/25/20 11/26/20 11/27/20 23:59 23:59 23:59 23:59 Intake Total 2795 4055 2885 1355 Balance 2795 4055 2885 1355 Meds/Results Medications: Active Medications Generic Name Dose Route Start Last Admin Trade Name Freq PRN Reason Stop Dose Admin Acetaminophen 650 mg 11/21/20 06:21 Acetaminophen 325 Mg Tablet PO Q4H PRN Mild Pain (1-3) or Fever Hydrocodone Bitart/Acetaminophen 1 tab 11/21/20 06:21 Hydrocodone/Acetaminophen (*Crx) 5-325 Mg Tablet PO Q4H PRN Pain Rated 4-6 Dextrose 12.5 gm 11/21/20 12:04 Dextrose 50% 25 Gm/50 Ml Syringe IV PUSH PRN PRN Hypoglycemia Protocol Glucagon 1 mg 11/21/20 12:04 Glucagon For Inj 1 Mg Vial IM PRN PRN Hypoglycemia Protocol Glucose 15 gm 11/21/20 12:04 Glucose Oral Gel 15 Gm Of Glucse In 37.5 Gm Tube PO PRN PRN Hypoglycemia Protocol Hydrochlorothiazide 12.5 mg 11/22/20 09:00 Hydrochlorothiazide 12.5 Mg Capsule PO QAM MARIA DOLORES Sodium Chloride 1,000 mls @ 125 mls/hr 11/21/20 06:25 11/27/20 05:49 Normal Saline Iv IV CONT 125 mls/hr .Q8H MARIA DOLORES Administration Dextrose 1,000 mls @ 100 mls/hr 11/21/20 12:04 Dextrose 5% 1,000 Ml IVPB PRN PRN Hypoglycemia Protocol Iron Sucrose 100 mg/ Sodium 55 mls @ 220 mls/hr 11/24/20 09:00 11/27/20 09:15 Chloride IVPB 11/28/20 09:01 Infused QAM MARIA DOLORES Infusion Insulin Aspart 3 - 6 units 11/21/20 12:00 11/27/20 12:04 Insulin Aspart (*Bkc) 100 Units/Ml SUB-Q Not Given TIDWM MARIA DOLORES Protocol Insulin Glargine 10 units 11/21/20 21:00 11/26/20 20:42 Insulin Glargine (*Bkc) 100 Units/M
[2020-11-27 17:02] LABS: Glucose Point of Care 118 mg/dl (65-105)
[2020-11-27 20:00] VITALS: PULSE 83; RESP 16; O2SAT 96
[2020-11-27] MEDS: MELATONIN 3 MG TABLET PO (20:30)
[2020-11-27] MEDS: SIMVASTATIN 20 MG TABLET 40 MG PO (20:30)
[2020-11-27] MEDS: INSULIN GLARGINE (*BKC) 100 UNITS/ML 10 UNITS SUB-Q (20:33)
[2020-11-27 20:54] LABS: Glucose Point of Care 147 mg/dl (65-105)
[2020-11-27 21:17] VITALS: BP 152/63; PULSE 83; RESP 16; TEMP 37.7; O2SAT 96
[2020-11-28 05:23] VITALS: BP 136/63; PULSE 76; RESP 16; TEMP 36.8; O2SAT 97
[2020-11-28 06:16] LABS: Basophils Percent Auto 0.2 % (0.2-1.2); Eosinophils Absolute Auto 0.3 K/mm3 (0-0.3); Hematocrit 23.3 % (37.0-47.0); Hemoglobin 7.2 g/dL (12.0-15.0); Immature Granulocyte Absolute 0.07 K/mm3 (0.00-0.031); Immature Granulocyte Percent A 0.6 % (0-0.5); Lymphocytes Absolute Auto 1.55 K/mm3 (0.9-3.2); Lymphocytes Percent Auto 12.3 % (18.3-44.2); Mean Corpuscular HGB Conc 30.9 g/dl (32-36); Mean Corpuscular Hemoglobin 27.4 pg (26-34); Mean Corpuscular Volume 88.6 fl (80-100); Mean Platelet Volume 10.5 fl (7.4-10.4); Monocytes Absolute Auto 0.7 K/mm3 (0.1-0.6); Monocytes Percent Auto 5.8 % (2.6-8.5); Neutrophils Percent Auto 79.1 % (45.5-73.1); Platelet Count Result 304 k/mm3 (150-375); Red Blood Count 2.63 M/mm3 (4.2-5.4); Red Cell Distribution Width 15.6 % (11.5-14.5); White Blood Count 12.6 K/mm3 (4.5-10.0)
[2020-11-28 06:41] LABS: Alanine Aminotransferase 11 U/L (4-35); Albumin Level 2.8 g/dL (3.5-5.1); Alkaline Phosphatase 85 U/L (38-126); Anion Gap 6 mmol/L (8-16); Aspartate Amino Transferase 15 U/L (14-36); Bilirubin,Total 0.2 mg/dL (0.2-1.3); Blood Urea Nitrogen 13 mg/dL (7-17); Calcium 8.6 mg/dL (8.4-10.2); Carbon Dioxide 22 mmol/L (22-30); Chloride 111 mmol/L (98-107); Estimated CRCL calculation 42 ml/min; Estimated Glomerular Filt Rate > 60; Glucose 117 mg/dL (65-110); Magnesium 1.5 mg/dL (1.6-2.3); Phosphorus 3.4 mg/dL (2.5-4.5); Potassium 3.4 mmol/L (3.4-5.0); Sodium 139 mmol/L (137-145)
[2020-11-28 07:00] LABS: Glucose Point of Care 105 mg/dl (65-105)
[2020-11-28 07:43] LABS: Glucose Point of Care 112 mg/dl (65-105)
[2020-11-28] MEDS: SODIUM CHLORIDE 0.9% IV 1,000 ML 125 ML IV CONT ×2 (09:59→17:00)
[2020-11-28] MEDS: PANTOPRAZOLE 40 MG TABLET PO ×2 (10:00→20:32)
[2020-11-28] MEDS: lisinopriL 20 MG TABLET PO (10:01)
[2020-11-28] MEDS: MAGNESIUM SULF 4 GM/WATER100ML 4 GM/100 ML BAG IVPB (10:02)
[2020-11-28] MEDS: IRON SUCROSE COMPLEX 100 MG in SODIUM CHLORIDE 0.9% IV 50 ML 220 MG IVPB (11:10)
--- NOTE | 2020-11-28 12:21 | PM.IMPN ---
Progress Note: A&P Assessment and Plan (1) Anemia: Code(s): D64.9 - Anemia, unspecified Status: Acute Assessment and Plan: EGD showing Multiple nonbleeding ulcers in the duodenal bulb and antrum and body of the stomach; biopsies pending Per GI recommendations, we will avoid NSAIDs, and resume diet and 40 b.i.d. Protonix Plan for EGD in 3 months as an outpatient along with colonoscopy with bowel prep Monitor hemoglobin Continue IV iron each morning reticulocyte count normal, haptoglobin pending (2) Acute UTI: Code(s): N39.0 - Urinary tract infection, site not specified Status: Acute Assessment and Plan: continue Bactrim to complete 10 day treatment Patient's symptoms are feeling a lot better, essentially at baseline (3) Acute kidney injury: Code(s): N17.9 - Acute kidney failure, unspecified Status: Acute Assessment and Plan: Resolved. Likely prerenal versus ATN in the setting of inflammation related hemodynamic shifts. We will continue supportive care with IV fluids and hold ACEI. Currently BP is within acceptable range at 141/63 on HCTZ only. Resume ACEI as an outpatient at the time of discharge. (4) Hypertension: Code(s): I10 - Essential (primary) hypertension Status: Acute Assessment and Plan: In the setting of MOY, we held lisinopril, will resume today (5) Type 2 diabetes mellitus: Code(s): E11.9 - Type 2 diabetes mellitus without complications Status: Acute Assessment and Plan: We held metformin in the setting of MOY. Continue insulin sliding scale coverage. Discharge on metformin. (6) Weakness: Code(s): R53.1 - Weakness Status: Acute Assessment and Plan: Generalized weakness and deconditioning . this has been a recurrent issue for this patient . We will have her work with PT. (7) Falls frequently: Code(s): R29.6 - Repeated falls Status: Acute Assessment and Plan: Fall precaution and PT evaluation. Patient lives alone. 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 Additional Plan Hemoglobin persists at 7.2. Would like to give her 1 unit, as this may be symptomatic anemia, given her somewhat labored breathing and weakness. If hemoglobin is at a safe level tomorrow can discharge her in the morning on p.o. iron. Most likely cause is peptic ulcer, which per GI recommendations we will treat with Protonix. EGD biopsy specimen was sent, and did not grow H pylori. Pending stable hemoglobin and symptomatic improvement, following blood transfusion today, aim for a safe discharge early tomorrow Morning. Subjective Date/time seen: 11/28/20 12:21 resting comfortably in bed. Continues to have some generalized lethargy and weakness. Breathing on room air. No acute medical complaints. Review of Systems Review of Systems: All systems reviewed & are unremarkable except as noted in HPI and below Exam Neck: Neck: no JVD Resp: Effort & Inspection: normal respiratory effort Auscultation: clear to auscultation bilaterally Cardio: Rate: regular rate Rhythm: regular rhythm GI: GI Palp: Yes Soft to palpation and No Tenderness to palpation present (GI) Objective Data Vital Signs Vital Signs: Vital Signs - 24 hr 11/27/20 13:45 11/27/20 20:00 11/27/20 21:17 Temperature 98.6 F 99.8 F H Pulse Rate 79 83 83 Respiratory Rate 18 16 16 Blood Pressure 144/71 H 152/63 H Pulse Oximetry 100 96 96 11/28/20 05:23 Temperature 98.3 F Pulse Rate 76 Respiratory Rate 16 Blood Pressure 136/63 Pulse Oximetry 97 Intake/Output Intake/Output: Intake & Output 11/25/20 11/26/20 11/27/20 11/28/20 23:59 23:59 23:59 23:59 Intake Total 4055 2885 2655 1400 Balance 4055 2885 2655 1400 Meds/Results Medications: Active Medications Generic Name Dose Route Start Last Admin Trade Name Freq PRN Reason Stop Dose Admin Acetaminophen 650 mg 11/21/20 06:21 Acetaminophen 325 Mg Tabl
[2020-11-28 12:22] LABS: Glucose Point of Care 165 mg/dl (65-105)
[2020-11-28 13:23] VITALS: BMI 10.0
[2020-11-28 14:00] VITALS: BP 141/63; PULSE 89; RESP 18; TEMP 36.7; O2SAT 97
[2020-11-28] MEDS: SODIUM CHLORIDE 0.9% IV 250 ML 30 ML IV CONT (14:15)
[2020-11-28 14:29] VITALS: BP 128/54; PULSE 78; RESP 18; TEMP 36.8; O2SAT 98
[2020-11-28 15:29] VITALS: BP 142/75; PULSE 74; RESP 18; TEMP 36.8; O2SAT 97
[2020-11-28 17:01] LABS: Glucose Point of Care 139 mg/dl (65-105)
[2020-11-28] MEDS: MELATONIN 3 MG TABLET PO (20:32)
[2020-11-28] MEDS: SIMVASTATIN 20 MG TABLET 40 MG PO (20:32)
[2020-11-28] MEDS: INSULIN GLARGINE (*BKC) 100 UNITS/ML 10 UNITS SUB-Q (20:39)
[2020-11-28 20:56] LABS: Glucose Point of Care 147 mg/dl (65-105)
[2020-11-28 21:08] VITALS: BP 155/69; PULSE 80; RESP 20; TEMP 36.3; O2SAT 95
[2020-11-29] MEDS: ACETAMINOPHEN 325 MG TABLET 650 MG PO (04:12)
[2020-11-29] MEDS: SODIUM CHLORIDE 0.9% IV 1,000 ML 125 ML IV CONT (04:13)
[2020-11-29 04:52] VITALS: BP 150/64; PULSE 72; RESP 16; TEMP 36.1; O2SAT 96
[2020-11-29 05:37] LABS: Basophils Percent Auto 0.3 % (0.2-1.2); Eosinophils Absolute Auto 0.3 K/mm3 (0-0.3); Eosinophils Percent Auto 2.4 % (0-4.4); Hematocrit 24.5 % (37.0-47.0); Hemoglobin 7.6 g/dL (12.0-15.0); Immature Granulocyte Absolute 0.07 K/mm3 (0.00-0.031); Immature Granulocyte Percent A 0.6 % (0-0.5); Lymphocytes Absolute Auto 1.56 K/mm3 (0.9-3.2); Lymphocytes Percent Auto 12.6 % (18.3-44.2); Mean Corpuscular Hemoglobin 27.7 pg (26-34); Mean Corpuscular Volume 89.4 fl (80-100); Mean Platelet Volume 10.3 fl (7.4-10.4); Monocytes Absolute Auto 0.8 K/mm3 (0.1-0.6); Monocytes Percent Auto 6.5 % (2.6-8.5); Neutrophils Absolute Auto 9.6 K/mm3 (1.3-6.7); Neutrophils Percent Auto 77.6 % (45.5-73.1); Platelet Count Result 324 k/mm3 (150-375); Red Blood Count 2.74 M/mm3 (4.2-5.4); Red Cell Distribution Width 15.8 % (11.5-14.5); White Blood Count 12.4 K/mm3 (4.5-10.0)
[2020-11-29 05:50] LABS: Alanine Aminotransferase 11 U/L (4-35); Albumin Level 2.6 g/dL (3.5-5.1); Alkaline Phosphatase 76 U/L (38-126); Anion Gap 5 mmol/L (8-16); Aspartate Amino Transferase 15 U/L (14-36); Bilirubin,Total < 0.1 mg/dL (0.2-1.3); Blood Urea Nitrogen 14 mg/dL (7-17); Calcium 8.3 mg/dL (8.4-10.2); Carbon Dioxide 21 mmol/L (22-30); Chloride 110 mmol/L (98-107); Estimated CRCL calculation 38 ml/min; Estimated Glomerular Filt Rate 55; Glucose 134 mg/dL (65-110); Magnesium 1.8 mg/dL (1.6-2.3); Phosphorus 3.6 mg/dL (2.5-4.5); Potassium 3.3 mmol/L (3.4-5.0); Sodium 136 mmol/L (137-145)
[2020-11-29 06:42] LABS: Glucose Point of Care 112 mg/dl (65-105)
[2020-11-29] MEDS: lisinopriL 20 MG TABLET PO (08:26)
[2020-11-29] MEDS: PANTOPRAZOLE 40 MG TABLET PO (08:26)
[2020-11-29] MEDS: POTASSIUM CHLORIDE 20 MEQ TABLET PO (08:28)
[2020-11-29 12:04] LABS: Glucose Point of Care 131 mg/dl (65-105)
--- NOTE | 2020-11-29 12:17 | PM.DS ---
DS: Admitting Diagnosis Discharge Date 11/29/2020 Admitting Diagnosis weakness DS: Discharge Diagnosis Discharge Diagnosis (1) Peptic ulcer disease: Code(s): K27.9 - Peptic ulcer, site unspecified, unspecified as acute or chronic, without hemorrhage or perforation Status: Acute (2) Anemia: Code(s): D64.9 - Anemia, unspecified Status: Acute (3) Acute UTI: Code(s): N39.0 - Urinary tract infection, site not specified Status: Acute (4) Acute kidney injury: Code(s): N17.9 - Acute kidney failure, unspecified Status: Acute (5) Hypertension: Code(s): I10 - Essential (primary) hypertension Status: Acute (6) Type 2 diabetes mellitus: Code(s): E11.9 - Type 2 diabetes mellitus without complications Status: Acute (7) Weakness: Code(s): R53.1 - Weakness Status: Acute (8) Falls frequently: Code(s): R29.6 - Repeated falls Status: Acute (9) B12 deficiency anemia: Code(s): D51.9 - Vitamin B12 deficiency anemia, unspecified Status: Acute DS: Summary Hospital Course Reason for hospitalization: 70yo female with DM and HTN here for weakness. Please see H&P for details. Hospital Course: Patient presents with weakness. Hgb was 10.2 but dropped to the 7 range. She was on IV fluids so some of this drop could be related to IV fluids. Stool was guaiac positive. Gi was consulted and she underwent an EGD which showed multiple nonbleeding ulcers in the duodenal bulb and antrum and body of the stomach; biopsies were negative. H.plyori was negative. Per GI recommendations, she should avoid NSAIDs and continue Protonix 40 b.i.d.. Plan for EGD in 3 months as an outpatient along with colonoscopy with bowel prep. Iron studies probably mixed iron deficiency and anemia of chronic disease. She received iron IV x 5 days. UA was consistent with UTI and WBC was elevated to 18K before trending down. Urine culture growing Klebsiella treated with Rocephin then Bactrim for a total of 8 days of abx. Will stop abx. Blood cultures negative to date. She is B12 deficient so this will be replaced. Creatinine was 2.0 on admission but drooped to 0.9 after two days of IV fluids. Likely prerenal versus ATN in the setting of inflammation related hemodynamic shifts. Generalized weakness and deconditioning on admission. She worked with PT. Placement was arranged and she was able to be discharged to SNF today. Status at Discharge Cognitive/behavioral status at discharge: stable Time Spent with Patient Time attestation: Total time spent providing and/or coordinating discharge services: 34 minutes Time spent: Greater than 30 minutes Exam Narrative: AF 96.9 150/64 72 16 96%ra Gen - NARD Chest - CTA bilaterally, nml RR CV - RRR S1/S2 with occasional extra beat Abd - soft, NT, protuberant Ext - trace pedal edema; negative Homans Psych - nml mood, odd affect DS: Data Data Completed and Pending Completed studies during hospitalization: Pending at discharge 11/26/20 11:03 Surgical [PTH] Routine Labs on day of discharge: Labs from last 24 hours 11/29/20 11/29/20 11/29/20 11:55 06:26 05:17 WBC RBC Hgb Hct MCV MCH MCHC RDW Plt Count MPV Immature Gran % (Auto) Neut % (Auto) Lymph % (Auto) [place] % (Auto) Eos % (Auto) Baso % (Auto) Lymph # (Auto) [place] # (Auto) Eos # (Auto) Baso # (Auto) Abs Immat Gran (auto) Absolute Neuts (auto) Absolute Nucleated RBC Nucleated RBC % Sodium 136 L Potassium 3.3 L Chloride 110 H Carbon Dioxide 21 L Anion Gap 5 L BUN 14 Creatinine 1.00 Estim Creat Clear Calc 38 Estimated GFR 55 L Glucose 134 H POC Capillary Glucose 131 H 112 H Calcium 8.3 L Phosphorus 3.6 Magnesium 1.8 Total Bilirubin < 0.1 L AST 15 ALT 11 Alkaline Phosphatase 76 Total Protein 5.0 L Albumi
[2020-11-29 13:54] LABS: EDCOVIDSCREEN Negative (Negative)
[2020-11-30 10:12] LABS: Haptoglobin 392 mg/dL (43-212)
== END 2020-11-29 16:37 | DRG 683 ==
LOC: ANHED 06:27 → ANH2MED 06:53
PROVIDERS: Internal Medicine; Internal Medicine Gastroenterology; Admitting Provider Internal Medicine; Emergency Provider Emergency Medicine; PCP Family Medicine; Visit Provider Internal Medicine
PROC: 0DJ08ZZ Inspection of Upper Intestinal Tract, Via Natural or Artificial Opening Endoscopic (ICD-10-PCS; CPT 43235; principal; 2020-11-26 14:15)
PROC: 0DJD8ZZ Inspection of Lower Intestinal Tract, Via Natural or Artificial Opening Endoscopic (ICD-10-PCS; CPT 45330; 2020-11-26 14:15)
DX: N17.9 Acute kidney failure, unspecified (principal); N39.0 Urinary tract infection, site not specified; Z20.822 Contact with and (suspected) exposure to COVID-19; I10 Essential (primary) hypertension; E11.9 Type 2 diabetes mellitus without complications; E78.5 Hyperlipidemia, unspecified; Z79.84 Long term (current) use of oral hypoglycemic drugs; R29.6 Repeated falls; B96.20 Unspecified Escherichia coli [E. coli] as the cause of diseases classified elsewhere; B96.1 Klebsiella pneumoniae [K. pneumoniae] as the cause of diseases classified elsewhere; K26.9 Duodenal ulcer, unspecified as acute or chronic, without hemorrhage or perforation; K25.9 Gastric ulcer, unspecified as acute or chronic, without hemorrhage or perforation; D50.9 Iron deficiency anemia, unspecified; D63.8 Anemia in other chronic diseases classified elsewhere; R19.5 Other fecal abnormalities
CPT/HCPCS: 36415; 36430; 51701; 80048; 80053; 81001; 82274; 82607; 82728; 82746; 82948; 83010; 83540; 83550; 83605; 83615; 83735; 84100; 84132; 85025; 85027; 85046; 85055; 86850; 86900; 86901; 86920; 87040; 87077; 87081; 87086; 87088; 87186; 87426; 88305; 93005; 96361; 96365; 97110; 97162; 97165; 97530; 97535; 99285; A9270; C9803; G0378; J0696; J1756; J1815; J2704; J3475; J3480; J7030; J7050; J7120; P9016

== ENCOUNTER 2021-03-04 10:03 | Inpatient (IN) | payer MEDICARE, MEDICAID, SELFPAY ==
[2021-03-04] VITALS (23 sets, daily range): BP systolic 98–148; BP diastolic 38–116; PULSE 61–121; RESP 10–27; TEMP 36.2–36.7; O2SAT 94–99; BMI 24.1
--- NOTE | ~2021-03-04 | XR_ITS ---
EXAMINATION: XR chest 1V portable DATE: 03/08/2021 06:05 INDICATION: Shortness of breath. Pneumonia. TECHNIQUE: A single frontal view of the chest was obtained. COMPARISON: Chest single view 08/07/2020, chest CT 03/04/2021 FINDINGS: There are airspace opacities in right mid and lower lung zones and left lower lung zone. No pleural effusion or pneumothorax. The heart size is normal. There is an old fracture of proximal rig ht humerus with nonunion. IMPRESSION: 1. Airspace opacities in right mid and lower lung zones and left lower lung zone, consistent with pne umonia. Reviewed, dictated and finalized at location A. INSPECTOR IMPRESSION: 1. Airspace opacities in right mid and lower lung zones and left lower lung zon e, consistent with pneumonia.
--- NOTE | ~2021-03-04 | US_ITS ---
EXAMINATION: US renal BI EXAM DATE: 03/05/2021 09:45 INDICATION: acute kidney injury . TECHNIQUE: Multiple grayscale and Doppler images of the kidneys were obtained (by a technologist who performed the scan) and subsequently reviewed. Correlation is made to CT abdomen pelvis from yesterda y. FINDINGS: Right kidney: There is normal contour and echogenicity. It measures 9.4 x 4.8 x 4.9 centimeters. Th ere are no focal renal lesions identified. There is no hydronephrosis. Small amount of fluid noted along the lower pole of the right kidney. Correlation made to CT from yesterday, small amount of flui d identified along both kidneys on that study. This is not a clinically significant finding. Left kidney: There is normal contour and echogenicity. It measures 9.3 x 4.6 x 5.6 centimeters. The re are no focal renal lesions identified. There is no hydronephrosis. Hartman catheter within collapsed bladder. IMPRESSION: 1. Sonographically unremarkable kidneys. Reviewed, dictated and finalized at location B. TH INFORMATION SYSTEMS TECHNICIAN
--- NOTE | ~2021-03-04 | CT_ITS ---
EXAMINATION:CT diagnostic chest wo con DATE: 03/04/2021 14:26 INDICATION: Lung disease. Pneumonia. TECHNIQUE: Computed tomography (CT) of the chest was performed without intravenous contrast. Automate d exposure control and iterative reconstruction technique were employed. The dose-length product (DLP ) was 270.80 mGy-cm. COMPARISON: CT abdomen and pelvis 03/04/2021 FINDINGS: There is mild atelectasis in left lower lobe and lingula. There are mild groundglass opacit ies in anterior segment right upper lobe. There are groundglass and airspace opacities involving righ t middle lobe and right lower lobe. These findings are consistent with pneumonia. No pleural effusion . The heart size is normal. There are coronary artery calcifications. No pericardial effusion. The ce ntral pulmonary arteries are enlarged, consistent with pulmonary arterial hypertension. There are fabian nges of cholecystectomy. Calcifications in the liver and spleen are consistent with old granulomatous disease. 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 There is severe thoracic and cervical spondylosis. There are chronic burst fractures of T12 and L2. IMPRESSION: 1. Right-sided pneumonia. Reviewed, dictated and finalized at location A. ITE CARE PROVIDER IMPRESSION: 1. Right-sided pneumonia.
--- NOTE | ~2021-03-04 | US_ITS ---
EXAMINATION:US venous doppler LE BI INDICATION:Leg swelling. Evaluate for DVT. TECHNIQUE: Multiple grayscale, color flow and Doppler images of the right and left lower extremity de ep venous systems were obtained and reviewed. COMPARISON:No prior studies for comparison. FINDINGS: The common femoral, superficial femoral and popliteal veins demonstrate normal respiratory variation, augmentation and compressibility. Color flow is also seen within the posterior tibial, pe roneal, greater saphenous and profunda veins. IMPRESSION: 1: No lower extremity deep venous thrombosis. Reviewed, dictated and finalized at location A. DRYING MACHINE OPERATOR
--- NOTE | ~2021-03-04 | CT_ITS ---
EXAMINATION: CT abdomen pelvis wo con DATE: 03/04/2021 13:23 INDICATION: Abdominal pain, vomiting and diarrhea TECHNIQUE: Computed tomography (CT) of the abdomen and pelvis was performed without intravenous contr ast. Automated exposure control and iterative reconstruction technique were employed. The dose-length product was 791.14 mGy-cm. COMPARISON: None FINDINGS: Patchy peripheral predominant groundglass opacities in the right lower lobe. Mild discoid atelectasis at the lingula. Heart size is normal. Atherosclerotic coronary artery calcification. No pericardial or pleural effusion. Cholecystectomy clips at the gallbladder fossa. A few scattered hepatic and sple garcia calcifications consistent with old granulomatous disease. 3 cm low-attenuation left adrenal adeno ma. Pancreas, right adrenal gland and bilateral kidneys are normal. There is moderate colonic diverti culosis with a sigmoid predominance. There is no adjacent inflammatory change to suggest diverticuli tis. Change of prior cecal resection with right lower quadrant ileocolic anastomosis. No bowel obstru ction. Bladder is normal. The uterus is not identified and has likely been surgically resected. Mild pelvic floor relaxation. No free intraperitoneal gas or fluid. No pathologically enlarged abdominal o r pelvic lymphadenopathy. There is calcified atherosclerosis of the aorta and many of the other arter ies. Chronic appearing T12, L2 and L3 burst fractures with mild retropulsion resulting in mild central can al stenosis at each level. Additional chronic mild superior endplate compression fracture at L4. Age- indeterminate more recent-appearing L5 compression fracture with 60% central vertebral body height lo ss which is new since MRI dated 08/09/2020. There is mild retropulsion as well as prominent disc bulge at L5-S1 resulting in moderate central canal stenosis at the levels of both the superior L5 endplate and at the L5-S1 disc space. Moderate to severe lower lumbar facet osteoarthritis. IMPRESSION: 1. Several peripheral region of groundglass opacity in the right lower lobe which could be related to pneumonia including COVID pneumonia or pulmonary infarcts. 2. Multiple lumbar and lower thoracic compression/burst fractures including a relatively recent-appea ring L5 burst fracture which contributes to moderate central canal stenosis. 3. Diverticulosis. Reviewed, dictated and finalized at location A. MOTIVE SALES MANAGER IMPRESSION: 1. Several peripheral region of groundglass opacity in the right lower lobe whi ch could be related to pneumonia including COVID pneumonia or pulmonary infarct s. 2. Multiple lumbar and lower thoracic compression/burst fractures including a r elatively recent-appearing L5 burst fracture which contributes to moderate cent ral canal stenosis. 3. Diverticulosis.
--- NOTE | ~2021-03-04 | CT_ITS ---
EXAMINATION: CT brain wo con EXAM DATE: 03/05/2021 09:46 INDICATION: Confusion. TECHNIQUE: Spiral CT of the head was performed without contrast. Axial, coronal and sagittal images were reviewed. The dose-length product (DLP) for this examination was 681.00 mGy-cm. The exposure w as tailored according to patient size, and iterative reconstruction (ASIR) was used as additional dos e reduction technique. Comparison is made to prior examination from 08/07/2020. FINDINGS: There is no acute intraparenchymal hemorrhage. No evidence of intraparenchymal brain mass lesion. No evidence of acute infarction. Please note that initial head CT has limited sensitivity f or small or acute infarctions. There is moderate periventricular and subcortical hypodensity, nonspec ific but probably related to small vessel ischemic disease. There is moderate prominence of the sul ci and ventricles related to cerebral atrophy. There is intracranial carotid arteriosclerosis. The re are no extra-axial collections. There is no mass effect or midline shift. Patient has had bilate ral ocular lens surgery. Soft tissue is unremarkable. The visualized sinuses and mastoid air cells are well aerated. IMPRESSION: 1. No acute intracranial findings. 2. Chronic age related findings. Reviewed, dictated and finalized at location B. END ARCHITECT
[2021-03-04 10:51] LABS: Basophils Absolute Auto 0.1 K/mm3 (0.0-0.1); Basophils Percent Auto 0.4 % (0.2-1.2); Eosinophils Absolute Auto 0.1 K/mm3 (0-0.3); Eosinophils Percent Auto 0.4 % (0-4.4); Hematocrit 37.8 % (37.0-47.0); Hemoglobin 11.6 g/dL (12.0-15.0); Immature Granulocyte Absolute 0.64 K/mm3 (0.00-0.031); Immature Granulocyte Percent A 3.9 % (0-0.5); Lymphocytes Absolute Auto 2.13 K/mm3 (0.9-3.2); Mean Corpuscular HGB Conc 30.7 g/dl (32-36); Mean Corpuscular Hemoglobin 28.9 pg (26-34); Mean Corpuscular Volume 94.3 fl (80-100); Mean Platelet Volume 10.2 fl (7.4-10.4); Monocytes Absolute Auto 0.5 K/mm3 (0.1-0.6); Monocytes Percent Auto 3.3 % (2.6-8.5); Platelet Count Result 387 k/mm3 (150-375); Red Blood Count 4.01 M/mm3 (4.2-5.4); Red Cell Distribution Width 16.3 % (11.5-14.5); White Blood Count 16.4 K/mm3 (4.5-10.0)
[2021-03-04 10:59] LABS: Alanine Aminotransferase 10 U/L (4-35); Albumin Level 4.1 g/dL (3.5-5.1); Alkaline Phosphatase 102 U/L (38-126); Anion Gap 24 mmol/L (8-16); Aspartate Amino Transferase 18 U/L (14-36); Bilirubin,Total 0.3 mg/dL (0.2-1.3); Blood Urea Nitrogen 51 mg/dL (7-17); Calcium 6.3 mg/dL (8.4-10.2); Carbon Dioxide 7 mmol/L (22-30); Chloride 111 mmol/L (98-107); Estimated CRCL calculation 12 ml/min; Estimated Glomerular Filt Rate 11; Glucose 128 mg/dL (65-110); Lipase 420 U/L (23-300); Potassium 5.3 mmol/L (3.4-5.0); Sodium 142 mmol/L (137-145)
[2021-03-04 12:02] LABS: Add Urine Microscopic? YES; Appearance Urine Turbid (Clear); Bacteria Urine 1+ /hpf; Bilirubin Urine Negative (Negative); Blood Urine 1+ (Negative); Color Urine Yellow (Yellow); Glucose Urine UA Negative (Negative); Ketones Urine Negative (Negative); Leukocyte Esterase Ur 3+ LEU/UL (Negative); Mucus Urine Rare /lpf; Nitrate Urine Negative (Negative); Protein Urine 3+ mg/dL (Negative); RBC Urine 51-75 /hpf (0-2); Specific Grav Ur 1.014 (1.001-1.035); Squamous Epithelial Cell Urine Moderate /hpf (Few); Urobilinogen Urine Negative mg/dL (<2.0); WBC Clumps Urine Present /HPF; WBC Urine >75 /hpf
[2021-03-04] MEDS: ONDANSETRON INJ 4 MG/2 ML VIAL IV PUSH (12:12)
[2021-03-04] MEDS: SODIUM CHLORIDE 0.9% IV 1,000 ML 999 ML IV CONT ×2 (12:12→14:42)
[2021-03-04] MEDS: MORPHINE SULFATE (*CRX) 4 MG/ML INJ IV PUSH (12:47)
--- NOTE | 2021-03-04 14:16 | ED.NAVMDI ---
HPI - Nausea/Vomiting/Diarrhea General Chief complaint: Nausea/Vomiting/Diarrhea Stated complaint: vomiting, diarrhea Time Seen by Provider: 03/04/21 11:59 Source: patient Limitations: no limitations History of Present Illness HPI Narrative: Patient came from home with nausea, vomiting and diarrhea and abdominal discomfort, unknown duration. Patient is not vaccinated for COVID, severe hearing impairment Related Data Home Medications Medication Instructions Recorded Confirmed metformin 1,000 mg PO BID 08/07/20 11/21/20 simvastatin 40 mg PO HS 08/07/20 11/21/20 lisinopril-hydrochlorothiazide 1 tablet PO DAILY 11/21/20 11/21/20 Allergies Allergy/AdvReac Type Severity Reaction Status Date / Time No Known Allergies Allergy Verified 11/26/20 10:07 Review of Systems Review of Systems: CONSTITUTIONAL: Denies fever, chills, or sweats. EYES: Denies visual changes, redness, or discharge. ENT: Denies rhinorrhea, congestion, sore throat, or otalgia. CARDIOVASCULAR: Denies chest pain, palpitations, or edema. RESPIRATORY: Denies cough or dyspnea. GASTROINTESTINAL: Complaining of abdominal pain, nausea, vomiting and diarrhea GENITOURINARY: Denies dysuria or hematuria. SKIN: Denies rash or itching. MUSCULOSKELETAL: Denies back pain, joint pain, or myalgia. NEUROLOGIC: Denies headache, numbness, or weakness. PSYCHIATRIC: Denies anxiety or depression. [facility] Past Medical History Medical History (Updated 03/04/21 @ 15:07 by Pippa Cai PA-C) B12 deficiency anemia Fracture of right hip (07/2020) Nondisplaced fracture of the right posterior superior tip of the greater trochanter, treated conservatively. Hyperlipidemia Hypertension Iron deficiency anemia Peptic ulcer disease Gastric and duodenal ulcers noted on EGD on 11/26/[address] Singh. Type 2 diabetes mellitus Surgical History Surgical History (Updated 03/04/21 @ 15:02 by Pippa Cai PA-C) History of elbow surgery Left. History of esophagogastroduodenoscopy (11/26/20) For evaluation of iron deficiency anemia, found to have gastric and duodenal ulcers. History of open reduction and internal fixation (ORIF) procedure (05/2018) Repair of right radius fracture. Social History Social History Smoking status: Never smoker Second hand tobacco smoke exposure: No Alcohol intake: never Substance use: never Substance use type: does not use Gender identity (if verbalized by the patient): Female Sexual Orientation (if Verbalized by the Patient): Straight or Heterosexual Spiritual care concerns: No Exam Narrative: General appearance: Well-developed, well-nourished Skin: Normal color Head: Normocephalic, nontraumatic Eyes: Clear conjunctiva ENT: Oropharynx normal, ears normal, nose normal Neck: Supple, nontender Chest and respiratory: Airway patent, no respiratory distress, no accessory muscle use Heart: Regular rate/rhythm Abdomen: Soft, mild diffuse tenderness, no organomegaly, quiet bowel sounds Vascular: Normal peripheral pulses, normal capillary refill. 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
[2021-03-04 14:49] LABS: EDCOVIDSCREEN Negative (Negative)
[2021-03-04 15:42] LABS: Alveolar/Arterial O2 Gradient 27.6 mmHg; Base Excess ABG -21.8 mEq/l (+/-2.0); Carboxyhemoglobin 0.3 % THb (0-2.0); Fractional Inspired Oxygen 28 %; Methemoglobin ABG 0.1 %THb (0-1.5); Oxygen Content ABG 16.2 %vol (16.0-22.0); Oxygen Saturation ABG 97.8 % (95.0-100.0); Oxyhemoglobin 97.5 % THb (90.0-100.0); PCO2 ABG 24.9 mmHg (35.0-45.0); PO2 ABG 142.7 mmHg (80.0-100.0); Reduced Hemoglobin 2.1 %THb (0-5.0); Total Hemoglobin 11.6 g/dL (12.0-18.0)
[2021-03-04 15:43] LABS: Lactic Acid Reflex 2.4 mmol/L (0.7-2.1)
[2021-03-04 15:45] LABS: Device NASAL CANNULA; Modified Allen's Test Pass; Site Drawn RIGHT RADIAL; pH ABG 7.064 (7.350-7.450)
[2021-03-04 15:47] LABS: Beta-Hydroxybutyrate/Acetoacetate 2.11 mmol/L (0.02-0.27)
--- NOTE | 2021-03-04 16:01 | ADMGEN ---
This patient, Ольга Marie, was admitted to [facility] Surg Room 306-01. Patient/family oriented to hospital policies and general routines including ID bracelet, bed and alarms, visiting hours, pain management, procedures, bathroom and other care routines, personal items, smoking policy, room service/diet, and visiting hours. Information on how to activate the Rapid Response Team has been discussed. Patient/Family are encouraged to report perceived risks to care and to ask questions if they do not understand what they are told or what they should do.
[2021-03-04] MEDS: SODIUM CHLORIDE 0.9% IV 1,000 ML 125 ML IV CONT (16:12)
[2021-03-04] MEDS: SODIUM BICARBONATE 8.4% 50 MEQ/50 ML SYRINGE 100 MEQ IV PUSH (17:40)
[2021-03-04 18:30] LABS: Reflex Lactic Acid Yes or No Add Lactic
--- NOTE | 2021-03-04 19:45 | PM.IMHP ---
H&P: HPI History of Present Illness Date/Time: 03/04/21 19:45 Chief Complaint: Nausea, vomiting, diarrhea. Narrative: This is a 70-year-old female with hypertension, hyperlipidemia, and type 2 diabetes mellitus who presented to the emergency department earlier today from home for evaluation of nausea, vomiting, and diarrhea. She is bit hard of hearing and seems somewhat disoriented or restless at the time my evaluation as such she has only a fair historian and thus some of the following is obtained via a review of her electronic medical records. She has not been feeling well for a couple of days and reports nausea, vomiting, and some loose stools. She has also had mild dysuria and vague abdominal discomfort. Labs drawn on arrival to the emergency department showed acute kidney injury and she looks quite dry on exam. A CT of the abdomen and pelvis showed diverticulosis and multiple lumbar and lower thoracic compression/burst fractures including a relatively recent appearing L5 burst fracture which contributes to moderate central canal stenosis. Patient denies having any recent falls and she is not having any significant back pain. She also denies saddle anesthesia, lower extremity weakness, incontinence, and urinary retention. A CT also showed several peripheral regions of ground-glass opacities in the right lower lobe which could be related to pneumonia or pulmonary infarcts and a subsequent CT of the chest showed right-sided pneumonia. She denies cough, chest pain, and shortness of breath. She has not had sick contacts and denies exposure to those positive for COVID 19. She also denies dysphagia and concerns for aspiration. She has not had any recent travel or antibiotic use. Review of Systems Review of Systems: Twelve systems were reviewed and are negative except for as per documented in the HPI. [facility] Past Medical History Medical History B12 deficiency anemia Fracture of right hip (07/2020) Nondisplaced fracture of the right posterior superior tip of the greater trochanter, treated conservatively. Hyperlipidemia Hypertension Iron deficiency anemia Peptic ulcer disease Gastric and duodenal ulcers noted on EGD on 11/26/[address] Singh. Type 2 diabetes mellitus Surgical History Surgical History History of cholecystectomy History of elbow surgery Left. History of esophagogastroduodenoscopy (11/26/20) For evaluation of iron deficiency anemia, found to have gastric and duodenal ulcers. History of open reduction and internal fixation (ORIF) procedure (05/2018) Repair of right radius fracture. History of partial hysterectomy Family History Family History (Updated 03/04/21 @ 23:54 by Pippa Cai PA-C) Sibling Diabetes mellitus Mother Heart disease Social History Social History (Updated 03/04/21 @ 23:53 by Pippa Cai PA-C) Social History: Surrogate decision-maker: Alba Hauser, niece. Code status: Full code. Smoking status: Never smoker Second hand tobacco smoke exposure: No Alcohol intake: never Substance use: never Substance use type: does not use Additional living arrangements comments: The patient lives in her own home in [place]. Additional occupation/education comments: Retired. Meds Home Medications and Allergies Home Medications Medication Instructions Recorded Confirmed Type metformin 1,000 mg PO BID 08/07/20 03/04/21 History simvastatin 40 mg PO HS 08/07/20 03/04/21 History lisinopril-hydrochlorothiazide 1 tablet PO DAILY 11/21/20 03/04/21 History acetaminophen [Mapap 650 mg PO Q4H PRN #0 tablet 11/29/20 03/04/21 Rx (acetaminophen)] cyanocobalamin (vitamin B-12) 1,000 mcg IM DIRECTED #10 ml 11/29/20 03/04/21 Rx pantoprazole 40 mg PO Q12HR #0 tablet 11/29/20 03/04/21 Rx Allergies Allergy/AdvReac Type Severity Reaction Status Date /
[2021-03-04 20:33] LABS: Lactic Acid 1.9 mmol/L (0.7-2.1)
[2021-03-04 20:44] LABS: Anion Gap 19 mmol/L (8-16); Blood Urea Nitrogen 53 mg/dL (7-17); Calcium 5.7 mg/dL (8.4-10.2); Carbon Dioxide 10 mmol/L (22-30); Chloride 110 mmol/L (98-107); Estimated CRCL calculation 9 ml/min; Estimated Glomerular Filt Rate 11; Glucose 154 mg/dL (65-110); Sodium 139 mmol/L (137-145)
--- NOTE | 2021-03-04 21:03 | ECG_ITS ---
Measurements Intervals [place] Rate: 79 P: -1 WV: 132 QRS: -31 QRSD: 80 T: 8 QT: 396 QTc: 455 Interpretive Statements SINUS RHYTHM LOW QRS VOLTAGE IN PRECORDIAL LEADS BORDERLINE R WAVE PROGRESSION, ANTERIOR LEADS INFERIOR INFARCT, AGE INDETERMINATE BASELINE ARTIFACT- I, II, III, AVR, AVL, AVF, V1, V3-V6 ABNORMAL ECG Electronically Signed On 03-05-2021 11:46:38 KARDEX CLERK by Khoi Correa D.O.
[2021-03-04 21:29] LABS: Creatine Kinase 44 U/L (30-135); Magnesium 0.8 mg/dL (1.6-2.3)
[2021-03-04] MEDS: SODIUM BICARBONATE 8.4% 100 MEQ in DEXTROSE 5% 1,000 ML 1,000 ML 75 MEQ IV CONT (21:34)
[2021-03-04 21:35] LABS: CRP 1.9 mg/dL (<1.0); Phosphorus 5.7 mg/dL (2.5-4.5)
[2021-03-04 21:46] LABS: Complement C3 90 mg/dL (88-165)
[2021-03-04 21:52] LABS: Erythrocyte Sedimentation Rate 64 mm/hr (0-20)
[2021-03-04] MEDS: SODIUM BICARBONATE 8.4% 50 MEQ/50 ML SYRINGE IV PUSH (22:43)
[2021-03-04] MEDS: DEXTROSE 50% 25 GM/50 ML SYRINGE IV PUSH (22:44)
[2021-03-04] MEDS: INSULIN HUMAN REGULAR (*BKC) 100 UNITS/ML 10 UNITS IV PUSH (22:44)
[2021-03-04] MEDS: SODIUM POLYSTYRENE SULFONONATE 15 GM/60 ML BTL 30 GM PO (22:44)
--- NOTE | 2021-03-04 22:44 | PC.NURSE ---
Rounded on patient at 1999. Patient oxygen saturation showed 80%. Patient was placed on 2L and is now saturating at 93%. Pippa Cai came and saw patient. New orders were put in for patient regarding medications, labs, and transfer. Patient transferred to IMU at 2230.
[2021-03-04] MEDS: CALCIUM GLUC 1,000 MG/NS 50 ML 1,000 MG/50 ML BAG 100 MG IVPB (22:45)
[2021-03-04 22:46] LABS: Eosinophil Urine None Seen % (None Seen)
[2021-03-04 23:30] LABS: Creatinine Urine 79.8 mg/dL; Total Protein Urine Random 179 mg/dL; Ur Ttl Prot Creatinine Ratio 2.24 mg/mg (0-0.20)
[2021-03-04 23:39] LABS: Potassium Urine Random 20.2 meq/L; Sodium Urine Random 92 meq/L
[2021-03-04] MEDS: SODIUM BICARBONATE 8.4% 150 MEQ in WATER, STERILE FOR INJECTION 950 ML IV CONT (23:41)
[2021-03-04] MEDS: MAGNESIUM SULF 4 GM/WATER100ML 4 GM/100 ML BAG IVPB (23:41)
[2021-03-04 23:50] LABS: Base Excess ABG -17.6 mEq/l (+/-2.0); HCO3 ABG 9.3 mEq/l (22.0-26.0); PCO2 ABG 26.1 mmHg (35.0-45.0); PO2 ABG 103.3 mmHg (80.0-100.0); pH ABG 7.171 (7.350-7.450)
[2021-03-04 23:51] LABS: Oxygen Saturation ABG 96.4 % (95.0-100.0); Total Hemoglobin 10.8 g/dL (12.0-18.0)
[2021-03-04 23:52] LABS: Alveolar/Arterial O2 Gradient 123.1 mmHg; Methemoglobin ABG 0.1 %THb (0-1.5)
[2021-03-04 23:53] LABS: Device NASAL CANNULA; Fractional Inspired Oxygen 36 %; Modified Allen's Test Pass; PO2 FiO2 Ratio Arterial Blood 2.87 %; Site Drawn RIGHT RADIAL
[2021-03-04 23:54] LABS: Carboxyhemoglobin 0.3 % THb (0-2.0); Oxyhemoglobin 96.5 % THb (90.0-100.0)
[2021-03-04 23:55] LABS: Oxygen Content ABG 14.8 %vol (16.0-22.0); Reduced Hemoglobin 3.1 %THb (0-5.0)
[2021-03-05] VITALS (14 sets, daily range): BP systolic 90–146; BP diastolic 45–99; PULSE 59–117; RESP 18–22; TEMP 36.2–36.9; O2SAT 92–100
--- NOTE | 2021-03-05 | ECHO_ITS ---
Patient Info Name: Ольга Marie Age: 70 years : 1950 Gender: Female Ht: 61 in Wt: 127 lbs BSA: 1.58 m2 Heart Rhythm: Sinus Rhythm Exam Date: 03/05/2021 3:45 PM Exam Location: [facility] Patient Status: Inpatient Admit Date: 03/04/2021 Staff Ordering Physician: Andrew Andino M.A., MD Map Drafter: ELIO Attending Provider: Kalli Sommer MD Exam Type: CA echo doppler color flow Study Info Complete two-dimensional, color flow and Doppler transthoracic echocardiogram is performed. Summary 1. Complete two-dimensional, color flow and Doppler transthoracic echocardiogram is performed. 2. Technically difficult study with limited views. Regional wall motion assessment limited due to poor endomyocardial border definition. 3. There is borderline mild aortic valve stenosis with a peak velocity of 166 cm/s, mean gradient of 6 mmHg, and aortic valve area of 1.9 cm2. 4. Left ventricular systolic function is normal, estimated at 65-70%. 5. There is no increased left ventricular wall thickness. 6. The left ventricular diastolic function is grade I diastolic dysfunction. 7. The aortic valve is not well visualized. Left Ventricle Technically difficult study with limited views. Regional wall motion assessment limited due to poor endomyocardial border definition. Left ventricular chamber dimension is normal. Left ventricular systolic function is normal, estimated at 65-70%. There is no increased left ventricular wall thickness. The left ventricular diastolic function is grade I diastolic dysfunction. Right Ventricle Right ventricular chamber dimension is normal. Right ventricular systolic function is normal. Left Atria Left atrial chamber dimension is normal. Right Atria Right atrial chamber dimension is normal. Aortic Valve There is borderline mild aortic valve stenosis with a peak velocity of 166 cm/s, mean gradient of 6 mmHg, and aortic valve area of 1.9 cm2. The aortic valve is not well visualized. There is no aortic valve regurgitation. Pulmonic Valve The pulmonic valve is not well visualized. Mitral Valve The mitral valve has normal leaflets. There is trace mitral valve regurgitation. The mitral valve annulus is mildly calcified. Tricuspid Valve The tricuspid valve leaflets are normal. There is trace tricuspid valve regurgitation. No pulmonary hypertension, estimated pulmonary arterial systolic pressure is 20 mmHg. Pericardium/Pleural The pericardium appears normal. There is small pericardial effusion. Inferior Vena Cava Normal inferior vena cava with >50% collapse upon inspiration consistent with normal right atrial pressure, 5 mmHg. Aorta The aortic root size at the sinus of Valsalva is normal. The prox ascending aorta size is normal. There is mild aortic atherosclerosis. Left Ventricular Outflow Tract Name Value Normal LVOT 2D LVOT Diameter 1.9 cm LVOT Doppler LVOT Peak Gradient 5 mmHg LVOT Mean Gradient 3 mmHg LVOT VTI 24 cm LVOT VTI/AV VTI Ratio 0.7 LVOT Michaelk
[2021-03-05 01:47] LABS: Anion Gap 17 mmol/L (8-16); Blood Urea Nitrogen 53 mg/dL (7-17); Carbon Dioxide 16 mmol/L (22-30); Chloride 107 mmol/L (98-107); Estimated CRCL calculation 9 ml/min; Estimated Glomerular Filt Rate 11; Glucose 108 mg/dL (65-110); Magnesium 2.7 mg/dL (1.6-2.3); Potassium 4.4 mmol/L (3.4-5.0); Sodium 140 mmol/L (137-145)
[2021-03-05 02:16] LABS: Iron 34 ug/dL (37-170)
[2021-03-05 02:27] LABS: Percent Iron Saturation 16 % (20-50)
[2021-03-05 05:49] LABS: Basophils Percent Auto 0.1 % (0.2-1.2); Eosinophils Percent Auto 0.3 % (0-4.4); Hematocrit 29.7 % (37.0-47.0); Hemoglobin 9.4 g/dL (12.0-15.0); Immature Granulocyte Absolute 0.06 K/mm3 (0.00-0.031); Immature Granulocyte Percent A 0.4 % (0-0.5); Lymphocytes Absolute Auto 2.61 K/mm3 (0.9-3.2); Lymphocytes Percent Auto 16.6 % (18.3-44.2); Mean Corpuscular HGB Conc 31.6 g/dl (32-36); Mean Corpuscular Hemoglobin 28.5 pg (26-34); Monocytes Percent Auto 6.6 % (2.6-8.5); Neutrophils Absolute Auto 11.9 K/mm3 (1.3-6.7); Platelet Count Result 300 k/mm3 (150-375); Red Cell Distribution Width 16.6 % (11.5-14.5); White Blood Count 15.7 K/mm3 (4.5-10.0)
[2021-03-05 06:02] LABS: Alanine Aminotransferase 7 U/L (4-35); Albumin Level 3.2 g/dL (3.5-5.1); Alkaline Phosphatase 71 U/L (38-126); Anion Gap 19 mmol/L (8-16); Aspartate Amino Transferase 16 U/L (14-36); Bilirubin,Total 0.2 mg/dL (0.2-1.3); Blood Urea Nitrogen 55 mg/dL (7-17); Calcium 5.7 mg/dL (8.4-10.2); Carbon Dioxide 15 mmol/L (22-30); Chloride 105 mmol/L (98-107); Estimated CRCL calculation 9 ml/min; Estimated Glomerular Filt Rate 11; Glucose 96 mg/dL (65-110); Lipase 126 U/L (23-300); Magnesium 2.2 mg/dL (1.6-2.3); Potassium 4.2 mmol/L (3.4-5.0); Sodium 139 mmol/L (137-145)
[2021-03-05 07:36] LABS: Thyroid Stimulating Hormone Reflex 0.358 uIU/mL (0.465-4.68)
[2021-03-05] MEDS: SODIUM BICARBONATE 8.4% 150 MEQ in WATER, STERILE FOR INJECTION 950 ML IV CONT (07:39)
[2021-03-05] MEDS: PANTOPRAZOLE 40 MG TABLET PO ×2 (10:05→21:24)
[2021-03-05 10:16] LABS: Free T4 Free Thyroxine Reflex 1.57 ng/dL (0.78-2.19)
[2021-03-05 11:12] LABS: Total Triiodothyronine (T3) 0.73 NG/ML (0.97-1.69)
--- NOTE | 2021-03-05 11:21 | PM.IMPN ---
Progress Note: A&P Assessment and Plan (1) Acute kidney injury: Code(s): N17.9 - Acute kidney failure, unspecified Status: Acute Assessment and Plan: Most likely related to severe sepsis and dehydration due to poor oral intake, vomiting, and diarrhea. Also patient probably has ATN. Hartman catheter has been placed for strict I/O and it drained approximately 200 cc on insertion. Renal ultrasound was negative for hydronephrosis. Dr. Valdez has also been consulted pending final recommended (2) Sepsis: Code(s): A41.9 - Sepsis, unspecified organism Status: Acute Assessment and Plan: Severe sepsis Present on admission and supported by tachycardia, leukocytosis, elevated lactic acid level, and acute kidney injury in the setting of pneumonia and urinary tract infection. Treated with IV fluid IV antibiotics. Also will get swallow evaluation (3) Pneumonia: Code(s): J18.9 - Pneumonia, unspecified organism Status: Acute Assessment and Plan: She has been started on azithromycin and and Zosyn follow Legionella and urinary antigens, COVID-19 was negative (4) Metabolic acidosis: Code(s): E87.2 - Acidosis Status: Acute Assessment and Plan: ABG consistent with metabolic acidosis and probably some component of respiratory acidosis as well. Metabolic acidosis is likely multifactorial and due to renal failure, bicarbonate loss from diarrhea, and lactic acidosis. (5) Urinary tract infection: Code(s): N39.0 - Urinary tract infection, site not specified Status: Acute Assessment and Plan: Continue IV antibiotic follow culture result (6) Hypertension: Code(s): I10 - Essential (primary) hypertension Status: Acute Assessment and Plan: Continue to hold Hydrochlorothiazide and lisinopril monitor blood pressures closely. (7) Type 2 diabetes mellitus: Code(s): E11.9 - Type 2 diabetes mellitus without complications Status: Acute Assessment and Plan: Metformin on hold. Initiate sliding scale insulin, Accu-Cheks, and hypoglycemic protocol. Check hemoglobin A1c If renal function does not improve to creatinine less than 1.4 plan to DC metformin from discharge medications as start patient on a different hypoglycemic medication (8) Anemia: Code(s): D64.9 - Anemia, unspecified Status: Acute Assessment and Plan: B12 is low continue B12 supplement (9) Peptic ulcer disease: Code(s): K27.9 - Peptic ulcer, site unspecified, unspecified as acute or chronic, without hemorrhage or perforation Status: Acute Assessment and Plan: Continue PPI. Gastric and duodenal ulcers noted on EGD in November 2020. (10) Metabolic encephalopathy: Code(s): G93.41 - Metabolic encephalopathy Status: Acute Assessment and Plan: Secondary to infection, acute kidney injury, and electrolyte abnormalities. Follow results of CT scan of the head. Subjective Date/time seen: 03/05/21 11:21 Interval history: 70 years old female with past medical history of hyperlipidemia hypertension diabetes mellitus presented to the hospital with nausea vomiting and diarrhea CT scan of the abdomen was significant for diverticulosis CT scan of the chest was significant for pneumonia lab testing was significant for severe metabolic acidosis and acute renal failure patient was treated for severe sepsis with acute renal failure and metabolic acidosis started on IV antibiotics IV fluid nephrology was consulted Patient feels weak complains of cough Patient denies fever headache chest pain I am seeing the patient for pneumonia Exam Narrative: Alert Chest positive bilateral wheeze crackles Abdomen nontender nondistended CVS S1 + S2 Lower extremity negative edema Objective Data Vital Signs Vital Signs: Vital Signs - 24 hr 03/04/21 11:30 03/04/21 11:32 03/04/21 11:45 Temperature
[2021-03-05] MEDS: CALCIUM GLUC 1,000 MG/NS 50 ML 1,000 MG/50 ML BAG 100 MG IVPB (11:59)
[2021-03-05 12:04] LABS: Glucose Point of Care 112 mg/dl (65-105)
[2021-03-05 13:20] LABS: Glucose Point of Care 107 mg/dl (65-105)
--- NOTE | 2021-03-05 16:07 | PM.CNNEP ---
Assessment and Plan Assessment and plan (1) Acute kidney injury: Code(s): N17.9 - Acute kidney failure, unspecified Status: Acute Assessment and Plan: suspect multifactorial: volume depletion/prerenal factors concurrent use of JYOTSNA-I and HCTZ + metformin prior to admission infection/sepsis (PNA + UTI) kidneys looked okay on CT of abdomen/pelvis as well as renal ultrasound urine electrolyte non-prerenal CPK okay follow trend of repeat labs and UOP (2) Sepsis: Code(s): A41.9 - Sepsis, unspecified organism Status: Acute Assessment and Plan: supported by evidence on admission -- tachycardia, leukocytosis, elevated lactic acid level along with MOY in the setting of infection (UTI + pneumonia) lactic acid improving s/p IVF resuscitation follow culture date follow trend of hemodynamics (3) Pneumonia: Code(s): J18.9 - Pneumonia, unspecified organism Status: Acute Assessment and Plan: as suggested by imaging to date follow cultures on IV antibiotics (4) Acute UTI: Code(s): N39.0 - Urinary tract infection, site not specified Status: Acute Assessment and Plan: quite suggestive by admission urinalysis follow urine culture on antibiotics (5) Metabolic acidosis: Code(s): E87.2 - Acidosis Status: Acute Assessment and Plan: quite significant by admission labs (chemistry + ABG) compensating with bicarbonate IVFs follow CO2 and wean off as tolerated (6) Hypertension: Code(s): I10 - Essential (primary) hypertension Status: Chronic Assessment and Plan: running on the soft side holding BP medications continue IVF resuscitation (7) Type 2 diabetes mellitus: Code(s): E11.9 - Type 2 diabetes mellitus without complications Status: Chronic Assessment and Plan: follow accuchecks glycemic control Will continue to follow. History of Present Illness Reason for Consult Consult date: 03/05/21 Reason for consult: acute renal failure Chief Complaint Chief complaint: Gastroenteritis/MOY/pneumonia History of Present Illness Narrative: The patient is a 70-year-old female with a past medical history as outlined below who presented to [facility] Emergency room for further evaluation of nausea, vomiting, and diarrhea. The patient is a bit hard of hearing so it is difficult to get a full and complete history from her so a lot of the information I have obtained is from review of the electronic medical records as well as discussion with Pippa Cai yesterday evening when the patient presented to the hospital. The patient states that she has not been feeling for last 2-3 days with the a for mentioned nausea, vomiting, and loose stools. Other associated symptoms included mild dysuria and nonspecific abdominal pain. As the symptoms seem to be persistent and not resolving, she presented to the emergency room for further evaluation. Workup and evaluation emergency room demonstrated the patient to be hemodynamically stable although her blood pressure was a little bit on the lower side of normal. Routine blood test demonstrated evidence of acute kidney injury and what appeared to be severe volume depletion / dehydration. Given her abnormal renal function a CT scan of the abdomen pelvis was done which demonstrated no significant intra-abdominal pathology but findings of diverticulosis, multiple lumbar / lower thoracic compression / burst fractures and moderate central canal stenosis. A CT scan of her chest demonstrated ground-glass opacities in right lower lobe concerning for possible pneumonia she did not give any symptoms of shortness of breath, chest pain, dyspnea on exertion or for that matter any sick contacts or exposure to COVID-19. Given her constellation of symptoms, her laboratory abnormalities, and her imaging findings, the patient was subsequently admitted to
--- NOTE | 2021-03-05 16:07 | P.CONNP_ITS ---
Assessment and Plan Assessment and plan (1) Acute kidney injury: Code(s): N17.9 - Acute kidney failure, unspecified Status: Acute Assessment and Plan: * suspect multifactorial: * volume depletion/prerenal factors * concurrent use of JYOTSNA-I and HCTZ + metformin prior to admission * infection/sepsis (PNA + UTI) * kidneys looked okay on CT of abdomen/pelvis as well as renal ultrasound * urine electrolyte non-prerenal * CPK okay * follow trend of repeat labs and UOP (2) Sepsis: Code(s): A41.9 - Sepsis, unspecified organism Status: Acute Assessment and Plan: * supported by evidence on admission -- tachycardia, leukocytosis, elevated lactic acid level along with MOY in the setting of infection (UTI + pneumonia) * lactic acid improving s/p IVF resuscitation * follow culture date * follow trend of hemodynamics (3) Pneumonia: Code(s): J18.9 - Pneumonia, unspecified organism Status: Acute Assessment and Plan: * as suggested by imaging to date * follow cultures * on IV antibiotics (4) Acute UTI: Code(s): N39.0 - Urinary tract infection, site not specified Status: Acute Assessment and Plan: * quite suggestive by admission urinalysis * follow urine culture * on antibiotics (5) Metabolic acidosis: Code(s): E87.2 - Acidosis Status: Acute Assessment and Plan: * quite significant by admission labs (chemistry + ABG) * compensating with bicarbonate IVFs * follow CO2 and wean off as tolerated (6) Hypertension: Code(s): I10 - Essential (primary) hypertension Status: Chronic Assessment and Plan: * running on the soft side * holding BP medications * continue IVF resuscitation (7) Type 2 diabetes mellitus: Code(s): E11.9 - Type 2 diabetes mellitus without complications Status: Chronic Assessment and Plan: * follow accuchecks * glycemic control Will continue to follow. History of Present Illness Reason for Consult Consult date: 03/05/21 Reason for consult: acute renal failure Chief Complaint Chief complaint: Gastroenteritis/MOY/pneumonia History of Present Illness Narrative: The patient is a 70-year-old female with a past medical history as outlined below who presented to [facility] Emergency room for further evaluation of nausea, vomiting, and diarrhea. The patient is a bit hard of hearing so it is difficult to get a full and complete history from her so a lot of the information I have obtained is from review of the electronic medical records as well as discussion with Pippa mcconnell yesterday evening when the patient presented to the hospital. The patient states that she has not been feeling for last 2-3 days with the a for mentioned nausea, vomiting, and loose stools. Other associated symptoms included mild dysuria and nonspecific abdominal pain. As the symptoms seem to be persistent and not resolving, she presented to the emergency room for further evaluation. Workup and evaluation emergency room demonstrated the patient to be hemodynamically stable although her blood pressure was a little bit on the lower side of normal. Routine blood test demonstrated evidence of acute kidney injury and what appeared to be severe volume depletion / dehydration. Given her abnormal renal function a CT scan of the abdomen pelvis was done which demonstrated no significant intra-abdominal pathology but findings of diverticulosis, multiple lumbar / lower thoracic compression / burst fractures
[2021-03-05 17:13] LABS: Glucose Point of Care 154 mg/dl (65-105)
[2021-03-05] MEDS: SIMVASTATIN 20 MG TABLET 40 MG PO (21:23)
[2021-03-05] MEDS: MIDODRINE HCL 2.5 MG TABLET 5 MG PO (21:24)
[2021-03-05 22:37] LABS: Glucose Point of Care 134 mg/dl (65-105)
[2021-03-06] VITALS (14 sets, daily range): BP systolic 76–134; BP diastolic 43–92; PULSE 48–98; RESP 16–20; TEMP 36–36.7; O2SAT 92–100
[2021-03-06] MEDS: SODIUM BICARBONATE 8.4% 150 MEQ in WATER, STERILE FOR INJECTION 950 ML 75 MEQ IV CONT (06:32)
[2021-03-06 08:56] LABS: Glucose Point of Care 90 mg/dl (65-105)
[2021-03-06] MEDS: PANTOPRAZOLE 40 MG TABLET PO ×2 (09:19→21:15)
[2021-03-06] MEDS: MIDODRINE HCL 2.5 MG TABLET 5 MG PO ×3 (09:19→15:40)
[2021-03-06 11:44] LABS: Albumin Level 3.2 g/dL (3.5-5.1); Anion Gap 9 mmol/L (8-16); Blood Urea Nitrogen 58 mg/dL (7-17); Calcium 4.7 mg/dL (8.4-10.2); Carbon Dioxide 30 mmol/L (22-30); Chloride 92 mmol/L (98-107); Estimated CRCL calculation 12 ml/min; Estimated Glomerular Filt Rate 16; Glucose 131 mg/dL (65-110); Phosphorus 4.1 mg/dL (2.5-4.5); Potassium 3.3 mmol/L (3.4-5.0); Sodium 131 mmol/L (137-145)
[2021-03-06 11:59] LABS: Glucose Point of Care 99 mg/dl (65-105)
[2021-03-06] MEDS: POTASSIUM CHLORIDE 20 MEQ TABLET PO (12:24)
[2021-03-06] MEDS: SODIUM CHLORIDE 0.9% IV 1,000 ML 75 ML IV CONT (12:24)
--- NOTE | 2021-03-06 13:46 | P.PNNP_ITS ---
Progress Note: A&P Assessment and Plan (1) Acute kidney injury: Code(s): N17.9 - Acute kidney failure, unspecified Status: Acute Assessment and Plan: * suspect multifactorial: * volume depletion/prerenal factors * concurrent use of JYOTSNA-I and HCTZ + metformin prior to admission * infection/sepsis (PNA + UTI) * evaluation to date: * no acute issues with regard to kidneys on CT of abdomen/pelvis and renal ultrasound * urine electrolyte non-prerenal * CPK okay * follow trend of repeat labs and UOP (2) Sepsis: Code(s): A41.9 - Sepsis, unspecified organism Status: Acute Assessment and Plan: * supported by evidence on admission -- tachycardia, leukocytosis, elevated lactic acid level along with MOY in the setting of infection (UTI + pneumonia) * lactic acid improving s/p IVF resuscitation * follow culture date * follow trend of hemodynamics (3) Pneumonia: Code(s): J18.9 - Pneumonia, unspecified organism Status: Acute Assessment and Plan: * as suggested by imaging to date * follow cultures * on IV antibiotics (4) Acute UTI: Code(s): N39.0 - Urinary tract infection, site not specified Status: Acute Assessment and Plan: * urine culture with Klebsiella * on antibiotics (5) Metabolic acidosis: Code(s): E87.2 - Acidosis Status: Acute Assessment and Plan: * quite significant by admission labs (chemistry + ABG) * compensated with bicarbonate IVFs * stop bicarb fluids (6) Hypertension: Code(s): I10 - Essential (primary) hypertension Status: Chronic Assessment and Plan: * running on the soft side * holding BP medications * continue IVF resuscitation (7) Type 2 diabetes mellitus: Code(s): E11.9 - Type 2 diabetes mellitus without complications Status: Chronic Assessment and Plan: * follow accuchecks * glycemic control Will continue to follow. Subjective Date/time seen: 03/06/21 13:46 Appears to be making slow and steady progress at this time; breathing/respiratory status seems stable if not better; no other issues/events overnight or earlier this morning. Exam Narrative: General: WD/WN female in NAD Heart: normal S1 and S2; no rub Lungs: decreased at bases Abdomen: soft, nondistended, positive bowel sounds Extremities: no cyanosis or clubbing; no edema Skin: warm and dry Objective Data Vital Signs Vital Signs: Vital Signs Temp Pulse Resp BP Pulse Ox 03/06/21 13:26 73 03/06/21 12:00 36.0 C L 67 18 86/46 L 100 03/06/21 11:46 68 94 03/06/21 10:00 69 03/06/21 08:00 36.3 C L 56 L 18 76/43 L 92 03/06/21 06:00 48 L 03/06/21 04:00 36.7 C 56 L 18 90/45 L 100 03/06/21 02:00 65 03/06/21 00:00 36.6 C 54 L 16 95/80 L 93 03/05/21 22:00 59 L 03/05/21 20:00 36.4 C 65 20 113/88 100 03/05/21 18:00 76 Intake/Output Intake/Output: Intake & Output 03/03/21 03/04/21 03/05/21 03/06/21 23:59 23:59 23:59 23:59 Intake Total 2420 4040 1260 Output Total 50 900 675 Balance 2370 3140 585 Meds/Results Medications: Active Medications
--- NOTE | 2021-03-06 13:46 | PM.PNNEP ---
Progress Note: A&P Assessment and Plan (1) Acute kidney injury: Code(s): N17.9 - Acute kidney failure, unspecified Status: Acute Assessment and Plan: suspect multifactorial: volume depletion/prerenal factors concurrent use of JYOTSNA-I and HCTZ + metformin prior to admission infection/sepsis (PNA + UTI) evaluation to date: no acute issues with regard to kidneys on CT of abdomen/pelvis and renal ultrasound urine electrolyte non-prerenal CPK okay follow trend of repeat labs and UOP (2) Sepsis: Code(s): A41.9 - Sepsis, unspecified organism Status: Acute Assessment and Plan: supported by evidence on admission -- tachycardia, leukocytosis, elevated lactic acid level along with MOY in the setting of infection (UTI + pneumonia) lactic acid improving s/p IVF resuscitation follow culture date follow trend of hemodynamics (3) Pneumonia: Code(s): J18.9 - Pneumonia, unspecified organism Status: Acute Assessment and Plan: as suggested by imaging to date follow cultures on IV antibiotics (4) Acute UTI: Code(s): N39.0 - Urinary tract infection, site not specified Status: Acute Assessment and Plan: urine culture with Klebsiella on antibiotics (5) Metabolic acidosis: Code(s): E87.2 - Acidosis Status: Acute Assessment and Plan: quite significant by admission labs (chemistry + ABG) compensated with bicarbonate IVFs stop bicarb fluids (6) Hypertension: Code(s): I10 - Essential (primary) hypertension Status: Chronic Assessment and Plan: running on the soft side holding BP medications continue IVF resuscitation (7) Type 2 diabetes mellitus: Code(s): E11.9 - Type 2 diabetes mellitus without complications Status: Chronic Assessment and Plan: follow accuchecks glycemic control Will continue to follow. Subjective Date/time seen: 03/06/21 13:46 Appears to be making slow and steady progress at this time; breathing/respiratory status seems stable if not better; no other issues/events overnight or earlier this morning. Exam Narrative: General: WD/WN female in NAD Heart: normal S1 and S2; no rub Lungs: decreased at bases Abdomen: soft, nondistended, positive bowel sounds Extremities: no cyanosis or clubbing; no edema Skin: warm and dry Objective Data Vital Signs Vital Signs: Vital Signs Temp Pulse Resp BP Pulse Ox 03/06/21 13:26 73 03/06/21 12:00 36.0 C L 67 18 86/46 L 100 03/06/21 11:46 68 94 03/06/21 10:00 69 03/06/21 08:00 36.3 C L 56 L 18 76/43 L 92 03/06/21 06:00 48 L 03/06/21 04:00 36.7 C 56 L 18 90/45 L 100 03/06/21 02:00 65 03/06/21 00:00 36.6 C 54 L 16 95/80 L 93 03/05/21 22:00 59 L 03/05/21 20:00 36.4 C 65 20 113/88 100 03/05/21 18:00 76 Intake/Output Intake/Output: Intake & Output 03/03/21 03/04/21 03/05/21 03/06/21 23:59 23:59 23:59 23:59 Intake Total 2420 4040 1260 Output Total 50 900 675 Balance 2370 3140 585 Meds/Results Medications: Active Medications Generic Name Dose Route Start Last Admin Trade Name Freq PRN Reason Stop Dose Admin Dextrose 12.5 gm 03/04/21 21:06 Dextrose 50% 25 Gm/50 Ml Syringe IV PUSH PRN PRN Hypoglycemia Protocol Glucagon 1 mg 03/04/21 21:06 Glucagon For Inj 1 Mg Vial IM PRN PRN Hypoglycemia Protocol Glucose 15 gm 03/04/21 21:06 Glucose Oral Gel 15 Gm Of Glucse In 37.5 Gm Tube PO PRN PRN Hypoglycemia Protocol Azithromycin 500 mg in 250 mls @ 250 mls/hr 03/05/21 15:00 03/06/21 16:15 Zithromax IVPB Infused Q24H MARIA DOLORES Infusion Dextrose 1,000 mls @ 100 mls/hr 03/04/21 21:06 Dextrose 5% 1,000 Ml IVPB PRN PRN Hypoglycemia Protocol Piperacillin Sod/Tazobactam Sod 2.25 gm in 50 mls @ 100 mls/hr 03/05/21 14:00
--- NOTE | 2021-03-06 15:29 | PM.IMPN ---
Progress Note: A&P Assessment and Plan (1) Acute kidney injury: Code(s): N17.9 - Acute kidney failure, unspecified Status: Acute Assessment and Plan: Most likely related to severe sepsis and dehydration due to poor oral intake, vomiting, and diarrhea. nephrology following, pt has cleaning catheter in situ (2) Sepsis: Code(s): A41.9 - Sepsis, unspecified organism Status: Acute Assessment and Plan: Severe sepsis Present on admission and supported by tachycardia, leukocytosis, elevated lactic acid level, and acute kidney injury in the setting of pneumonia and urinary tract infection. Treated with IV fluid IV rocephin and zithromax (3) Pneumonia: Code(s): J18.9 - Pneumonia, unspecified organism Status: Acute Assessment and Plan: She has been started on azithromycin and and Zosyn, COVID IS PENDING (4) Metabolic acidosis: Code(s): E87.2 - Acidosis Status: Acute Assessment and Plan: ABG consistent with metabolic acidosis and probably some component of respiratory acidosis as well. Metabolic acidosis is likely multifactorial and due to renal failure, bicarbonate loss from diarrhea, and lactic acidosis. (5) Urinary tract infection: Code(s): N39.0 - Urinary tract infection, site not specified Status: Acute Assessment and Plan: Positive for Klebsiella UTI sensitive to rocephin continue IV rocephin monitor WCC (6) Hypertension: Code(s): I10 - Essential (primary) hypertension Status: Acute Assessment and Plan: Continue to hold Hydrochlorothiazide and lisinopril (7) Type 2 diabetes mellitus: Code(s): E11.9 - Type 2 diabetes mellitus without complications Status: Acute Assessment and Plan: Metformin on hold. Initiate sliding scale insulin, Accu-Cheks, and hypoglycemic protocol. Check hemoglobin A1c If renal function does not improve to creatinine less than 1.4 plan to DC metformin from discharge medications as start patient on a different hypoglycemic medication (8) Anemia: Code(s): D64.9 - Anemia, unspecified Status: Acute Assessment and Plan: B12 is low continue B12 supplement (9) Peptic ulcer disease: Code(s): K27.9 - Peptic ulcer, site unspecified, unspecified as acute or chronic, without hemorrhage or perforation Status: Acute Assessment and Plan: Continue PPI. Gastric and duodenal ulcers noted on EGD in November 2020. (10) Metabolic encephalopathy: Code(s): G93.41 - Metabolic encephalopathy Status: Acute Assessment and Plan: Secondary to infection, acute kidney injury, and electrolyte abnormalities. CT head was negative - 1. No acute intracranial findings. 2. Chronic age related finding Additional Plan hypokaelaemia replace potassium Subjective Date/time seen: 03/06/21 15:29 Interval history: 70 years old female with past medical history of hyperlipidemia hypertension diabetes mellitus presented to the hospital with nausea vomiting and diarrhea CT scan of the abdomen was significant for diverticulosis CT scan of the chest was significant for pneumonia lab testing was significant for severe metabolic acidosis and acute renal failure patient was treated for severe sepsis with acute renal failure and metabolic acidosis started on IV antibiotics IV fluid nephrology was consulted Pt is here for pneumonia bacterial v covid Pt is under investigation Pt needing 2 liters of oxygen Review of Systems Review of Systems: All systems reviewed & are unremarkable except as noted in HPI and below Exam Narrative: Alert Chest lungs are clear decreased BS Abdomen nontender nondistended CVS S1 + S2 Lower extremity negative edema Objective Data Vital Signs Vital Signs: Vital Signs - 24 hr 03/05/21 16:00 03/05/21 18:00 03/05/21 20:00 Temperature 36.8 C 36.4 C Pulse Rate 75 76 65 Respiratory Rate 20
[2021-03-06] MEDS: SODIUM CHLORIDE 0.9% IV 250 ML 50 ML IV CONT (15:40)
[2021-03-06 16:13] LABS: Glucose Point of Care 167 mg/dl (65-105)
[2021-03-06 18:27] LABS: Albumin Level 3.2 g/dL (3.5-5.1); Anion Gap 7 mmol/L (8-16); Blood Urea Nitrogen 52 mg/dL (7-17); Calcium 4.8 mg/dL (8.4-10.2); Carbon Dioxide 30 mmol/L (22-30); Chloride 93 mmol/L (98-107); Estimated CRCL calculation 12 ml/min; Estimated Glomerular Filt Rate 15; Glucose 161 mg/dL (65-110); Potassium 3.1 mmol/L (3.4-5.0); Sodium 130 mmol/L (137-145)
[2021-03-06 21:09] LABS: Glucose Point of Care 123 mg/dl (65-105)
[2021-03-06] MEDS: SIMVASTATIN 20 MG TABLET 40 MG PO (21:16)
[2021-03-07] VITALS (10 sets, daily range): BP systolic 97–134; BP diastolic 51–79; PULSE 50–79; RESP 14–20; TEMP 36.2–36.6; O2SAT 93–100
[2021-03-07 05:00] LABS: Albumin Level 3.3 g/dL (3.5-5.1); Anion Gap 8 mmol/L (8-16); Blood Urea Nitrogen 50 mg/dL (7-17); Calcium 5.1 mg/dL (8.4-10.2); Carbon Dioxide 32 mmol/L (22-30); Chloride 92 mmol/L (98-107); Estimated CRCL calculation 13 ml/min; Estimated Glomerular Filt Rate 17; Glucose 125 mg/dL (65-110); Phosphorus 4.1 mg/dL (2.5-4.5); Sodium 132 mmol/L (137-145)
[2021-03-07 08:42] LABS: Glucose Point of Care 113 mg/dl (65-105)
[2021-03-07] MEDS: MIDODRINE HCL 2.5 MG TABLET 5 MG PO ×3 (09:41→16:02)
[2021-03-07] MEDS: POTASSIUM CHLORIDE 20 MEQ PACKET (FOR LIQUID) PO ×2 (09:41→17:10)
[2021-03-07] MEDS: SODIUM CHLORIDE 0.9% IV 1,000 ML 75 ML IV CONT (09:42)
[2021-03-07] MEDS: PANTOPRAZOLE 40 MG TABLET PO ×2 (09:42→20:51)
[2021-03-07 11:03] LABS: SARS-CoV-2 RNA PCR Negative (Negative)
--- NOTE | 2021-03-07 13:09 | P.PNNP_ITS ---
Progress Note: A&P Assessment and Plan (1) Acute kidney injury: Code(s): N17.9 - Acute kidney failure, unspecified Status: Acute Assessment and Plan: * suspect multifactorial: * volume depletion/prerenal factors * concurrent use of JYOTSNA-I and HCTZ + metformin prior to admission * infection/sepsis (PNA + UTI) * evaluation to date: * no acute issues with regard to kidneys on CT of abdomen/pelvis and renal ultrasound * urine electrolyte non-prerenal * CPK okay * follow trend of repeat labs and UOP (2) Sepsis: Code(s): A41.9 - Sepsis, unspecified organism Status: Acute Assessment and Plan: * supported by evidence on admission -- tachycardia, leukocytosis, elevated lactic acid level along with MOY in the setting of infection (UTI + pneumonia) * lactic acid improving s/p IVF resuscitation * follow culture date * follow trend of hemodynamics (3) Pneumonia: Code(s): J18.9 - Pneumonia, unspecified organism Status: Acute Assessment and Plan: * as suggested by imaging to date * follow cultures * on IV antibiotics (4) Acute UTI: Code(s): N39.0 - Urinary tract infection, site not specified Status: Acute Assessment and Plan: * urine culture with Klebsiella * on antibiotics (5) Metabolic acidosis: Code(s): E87.2 - Acidosis Status: Acute Assessment and Plan: * resolved * quite significant by admission labs (chemistry + ABG) * compensated with bicarbonate IVFs * off bicarb fluids at this time (6) Hypertension: Code(s): I10 - Essential (primary) hypertension Status: Chronic Assessment and Plan: * running on the soft side * holding BP medications * continue IVF resuscitation (7) Type 2 diabetes mellitus: Code(s): E11.9 - Type 2 diabetes mellitus without complications Status: Chronic Assessment and Plan: * follow accuchecks * glycemic control Will continue to follow. Subjective Date/time seen: 03/07/21 13:09 Overall, the patient appears to be improving albeit slowly; no new issues or problems to report at this time; breathing/respiratory status appears to be doing better; no distress apparent at the time of my visit. Exam Narrative: General: WD/WN female in NAD Heart: normal S1 and S2; no rub Lungs: decreased at bases Abdomen: soft, nondistended, positive bowel sounds Extremities: no cyanosis or clubbing; no edema Skin: warm and intact Objective Data Vital Signs Vital Signs: Vital Signs Temp Pulse Resp BP Pulse Ox 03/07/21 12:00 36.4 C L 61 14 111/54 L 93 03/07/21 10:00 60 03/07/21 08:00 36.4 C 60 16 97/51 L 100 03/07/21 06:00 63 03/07/21 04:00 36.5 C 68 20 134/74 100 03/07/21 02:00 50 L 03/07/21 00:00 36.6 C 63 20 124/79 97 03/06/21 22:00 64 03/06/21 20:00 36.4 C L 56 L 20 99/64 L 98 03/06/21 17:14 63 Intake/Output Intake/Output: Intake & Output 03/04/21 03/05/21 03/06/21 03/07/21 23:59 23:59 23:59 23:59 Intake Total 2420 4040 1485 1270 Output Total 50 054 289 1435 Balance 2370 3141 735 -947 Meds/Results Medications: Active Medications
--- NOTE | 2021-03-07 13:09 | PM.PNNEP ---
Progress Note: A&P Assessment and Plan (1) Acute kidney injury: Code(s): N17.9 - Acute kidney failure, unspecified Status: Acute Assessment and Plan: suspect multifactorial: volume depletion/prerenal factors concurrent use of JYOTSNA-I and HCTZ + metformin prior to admission infection/sepsis (PNA + UTI) evaluation to date: no acute issues with regard to kidneys on CT of abdomen/pelvis and renal ultrasound urine electrolyte non-prerenal CPK okay follow trend of repeat labs and UOP (2) Sepsis: Code(s): A41.9 - Sepsis, unspecified organism Status: Acute Assessment and Plan: supported by evidence on admission -- tachycardia, leukocytosis, elevated lactic acid level along with MOY in the setting of infection (UTI + pneumonia) lactic acid improving s/p IVF resuscitation follow culture date follow trend of hemodynamics (3) Pneumonia: Code(s): J18.9 - Pneumonia, unspecified organism Status: Acute Assessment and Plan: as suggested by imaging to date follow cultures on IV antibiotics (4) Acute UTI: Code(s): N39.0 - Urinary tract infection, site not specified Status: Acute Assessment and Plan: urine culture with Klebsiella on antibiotics (5) Metabolic acidosis: Code(s): E87.2 - Acidosis Status: Acute Assessment and Plan: resolved quite significant by admission labs (chemistry + ABG) compensated with bicarbonate IVFs off bicarb fluids at this time (6) Hypertension: Code(s): I10 - Essential (primary) hypertension Status: Chronic Assessment and Plan: running on the soft side holding BP medications continue IVF resuscitation (7) Type 2 diabetes mellitus: Code(s): E11.9 - Type 2 diabetes mellitus without complications Status: Chronic Assessment and Plan: follow accuchecks glycemic control Will continue to follow. Subjective Date/time seen: 03/07/21 13:09 Overall, the patient appears to be improving albeit slowly; no new issues or problems to report at this time; breathing/respiratory status appears to be doing better; no distress apparent at the time of my visit. Exam Narrative: General: WD/WN female in NAD Heart: normal S1 and S2; no rub Lungs: decreased at bases Abdomen: soft, nondistended, positive bowel sounds Extremities: no cyanosis or clubbing; no edema Skin: warm and intact Objective Data Vital Signs Vital Signs: Vital Signs Temp Pulse Resp BP Pulse Ox 03/07/21 12:00 36.4 C L 61 14 111/54 L 93 03/07/21 10:00 60 03/07/21 08:00 36.4 C 60 16 97/51 L 100 03/07/21 06:00 63 03/07/21 04:00 36.5 C 68 20 134/74 100 03/07/21 02:00 50 L 03/07/21 00:00 36.6 C 63 20 124/79 97 03/06/21 22:00 64 03/06/21 20:00 36.4 C L 56 L 20 99/64 L 98 03/06/21 17:14 63 Intake/Output Intake/Output: Intake & Output 03/04/21 03/05/21 03/06/21 03/07/21 23:59 23:59 23:59 23:59 Intake Total 2420 4040 1485 1270 Output Total 50 474 871 6187 Balance 2370 3140 735 -980 Meds/Results Medications: Active Medications Generic Name Dose Route Start Last Admin Trade Name Freq PRN Reason Stop Dose Admin Acetaminophen 650 mg 03/07/21 16:12 Acetaminophen 325 Mg Tablet PO Q6H PRN Mild Pain (1-3) or Fever Dextrose 12.5 gm 03/04/21 21:06 Dextrose 50% 25 Gm/50 Ml Syringe IV PUSH PRN PRN Hypoglycemia Protocol Glucagon 1 mg 03/04/21 21:06 Glucagon For Inj 1 Mg Vial IM PRN PRN Hypoglycemia Protocol Glucose 15 gm 03/04/21 21:06 Glucose Oral Gel 15 Gm Of Glucse In 37.5 Gm Tube PO PRN PRN Hypoglycemia Protocol Azithromycin 500 mg in 250 mls @ 250 mls/hr 03/05/21 15:00 03/07/21 16:01 Zithromax IVPB 250 mls/hr Q24H MARIA DOLORES Administration Dextrose 1,000 mls @ 100 mls/hr 03/04/21 21:06 Dextrose 5% 1,000
[2021-03-07 13:17] LABS: Glucose Point of Care 122 mg/dl (65-105)
--- NOTE | 2021-03-07 16:05 | PM.IMPN ---
Progress Note: A&P Assessment and Plan (1) Acute kidney injury: Code(s): N17.9 - Acute kidney failure, unspecified Status: Acute Assessment and Plan: continue iv fluids, creat is 2.7, nephrology on board continue to monitor MOY secondary to dehydration (2) Sepsis: Code(s): A41.9 - Sepsis, unspecified organism Status: Acute Assessment and Plan: Severe sepsis Present on admission and supported by tachycardia, leukocytosis, elevated lactic acid level, and acute kidney injury in the setting of pneumonia and urinary tract infection. Treated with IV fluid IV rocephin and zithromax (3) Pneumonia: Code(s): J18.9 - Pneumonia, unspecified organism Status: Acute Assessment and Plan: She has been started on iv rocephin and zithromax, covid is negative (4) Metabolic acidosis: Code(s): E87.2 - Acidosis Status: Resolved (5) Urinary tract infection: Code(s): N39.0 - Urinary tract infection, site not specified Status: Acute Assessment and Plan: Positive for Klebsiella UTI sensitive to rocephin continue IV rocephin monitor WCC (6) Hypertension: Code(s): I10 - Essential (primary) hypertension Status: Acute Assessment and Plan: Continue to hold Hydrochlorothiazide and lisinopril (7) Type 2 diabetes mellitus: Code(s): E11.9 - Type 2 diabetes mellitus without complications Status: Acute Assessment and Plan: Metformin on hold. Initiate sliding scale insulin, Accu-Cheks, and hypoglycemic protocol. (8) Anemia: Code(s): D64.9 - Anemia, unspecified Status: Acute Assessment and Plan: B12 is low continue B12 supplement (9) Peptic ulcer disease: Code(s): K27.9 - Peptic ulcer, site unspecified, unspecified as acute or chronic, without hemorrhage or perforation Status: Acute Assessment and Plan: Continue PPI. Gastric and duodenal ulcers noted on EGD in November 2020. (10) Metabolic encephalopathy: Code(s): G93.41 - Metabolic encephalopathy Status: Acute Assessment and Plan: Secondary to infection, acute kidney injury, and electrolyte abnormalities. CT head was negative - 1. No acute intracranial findings. 2. Chronic age related finding Additional Plan Hypokaelaemia- replace potassium Subjective Date/time seen: 03/07/21 16:05 Interval history: 70 years old female with past medical history of hyperlipidemia hypertension diabetes mellitus presented to the hospital with nausea vomiting and diarrhea CT scan of the abdomen was significant for diverticulosis CT scan of the chest was significant for pneumonia lab testing was significant for severe metabolic acidosis and acute renal failure patient was treated for severe sepsis with acute renal failure and metabolic acidosis Pt is here for pneumonia bacterial, Covid is negative Pt is improving Review of Systems Review of Systems: All systems reviewed & are unremarkable except as noted in HPI and below Exam Narrative: Alert, talkative on RA Chest lungs are clear decreased BS no added sounds Abdomen nontender nondistended CVS S1 + S2 Lower extremity negative edema Objective Data Vital Signs Vital Signs: Vital Signs - 24 hr 03/06/21 17:14 03/06/21 20:00 03/06/21 22:00 Temperature 36.4 C L Pulse Rate 63 56 L 64 Respiratory Rate 20 Blood Pressure 99/64 L Pulse Oximetry 98 03/07/21 00:00 03/07/21 02:00 03/07/21 04:00 Temperature 36.6 C 36.5 C Pulse Rate 63 50 L 68 Respiratory Rate 20 20 Blood Pressure 124/79 134/74 Pulse Oximetry 97 100 03/07/21 06:00 03/07/21 08:00 03/07/21 10:00 Temperature 36.4 C Pulse Rate 63 60 60 Respiratory Rate 16 Blood Pressure 97/51 L Pulse Oximetry 100 03/07/21 12:00 03/07/21 14:00 Temperature 36.4 C L Pulse Rate 61 71 Respiratory Rate 14 Blood Pressure 111/54 L Pulse Oximetry 93 Intak
[2021-03-07 16:59] LABS: Glucose Point of Care 131 mg/dl (65-105)
--- NOTE | 2021-03-07 17:32 | PC.NURSE ---
This patient, Ольга Marie, was received from [ IMU] on 03/07/21 at 1733. Patient oriented to unit policies and routines Patient in bed resting comfortably at this time. Will continue to monitor patient.
--- NOTE | 2021-03-07 17:37 | PC.NURSE ---
This patient, Ольга Marie, was transferred to [facility] on 03/07/21 at 1716. Personal belongings sent with patient. Report given to CRISTY Willis. Appropriate documentation sent with patient.
[2021-03-07 19:46] LABS: Glucose Point of Care 221 mg/dl (65-105)
[2021-03-07] MEDS: SIMVASTATIN 20 MG TABLET 40 MG PO (20:52)
[2021-03-08] MEDS: SODIUM CHLORIDE 0.9% IV 1,000 ML 75 ML IV CONT ×3 (02:23→20:10)
[2021-03-08 06:00] VITALS: BP 109/58; PULSE 50; RESP 16; TEMP 36.3; O2SAT 95
[2021-03-08 07:15] LABS: Hematocrit 27.5 % (37.0-47.0); Mean Corpuscular HGB Conc 32.7 g/dl (32-36); Mean Corpuscular Hemoglobin 28.8 pg (26-34); Mean Corpuscular Volume 87.9 fl (80-100); Mean Platelet Volume 10.3 fl (7.4-10.4); Platelet Count Result 316 k/mm3 (150-375); Red Blood Count 3.13 M/mm3 (4.2-5.4); Red Cell Distribution Width 15.8 % (11.5-14.5); White Blood Count 11.2 K/mm3 (4.5-10.0)
[2021-03-08 07:27] LABS: Albumin Level 3.2 g/dL (3.5-5.1); Anion Gap 10 mmol/L (8-16); Blood Urea Nitrogen 37 mg/dL (7-17); Calcium 6.4 mg/dL (8.4-10.2); Carbon Dioxide 31 mmol/L (22-30); Chloride 99 mmol/L (98-107); Estimated CRCL calculation 19 ml/min; Estimated Glomerular Filt Rate 28; Glucose 121 mg/dL (65-110); Potassium 2.8 mmol/L (3.4-5.0); Sodium 140 mmol/L (137-145)
[2021-03-08 08:07] LABS: Glucose Point of Care 111 mg/dl (65-105)
[2021-03-08] MEDS: PANTOPRAZOLE 40 MG TABLET PO ×2 (08:45→20:11)
[2021-03-08] MEDS: MIDODRINE HCL 2.5 MG TABLET 5 MG PO ×3 (08:45→17:06)
[2021-03-08] MEDS: POTASSIUM CHLORIDE 20 MEQ PACKET (FOR LIQUID) 40 MEQ PO ×2 (08:45→17:07)
--- NOTE | 2021-03-08 11:11 | PM.PNNEP ---
Progress Note: A&P Assessment and Plan (1) Acute kidney injury: Code(s): N17.9 - Acute kidney failure, unspecified Status: Acute Assessment and Plan: improving suspect multifactorial: volume depletion/prerenal factors concurrent use of JYOTSNA-I and HCTZ + metformin prior to admission infection/sepsis (PNA + UTI) evaluation to date: no acute issues with regard to kidneys on CT of abdomen/pelvis and renal ultrasound urine electrolyte non-prerenal CPK okay follow trend of repeat labs and UOP (2) Sepsis: Code(s): A41.9 - Sepsis, unspecified organism Status: Acute Assessment and Plan: supported by evidence on admission -- tachycardia, leukocytosis, elevated lactic acid level along with MOY in the setting of infection (UTI + pneumonia) lactic acid improving s/p IVF resuscitation follow culture data follow trend of hemodynamics (3) Pneumonia: Code(s): J18.9 - Pneumonia, unspecified organism Status: Acute Assessment and Plan: as suggested by imaging to date follow cultures on IV antibiotics (4) Acute UTI: Code(s): N39.0 - Urinary tract infection, site not specified Status: Acute Assessment and Plan: urine culture with Klebsiella on antibiotics (5) Hypertension: Code(s): I10 - Essential (primary) hypertension Status: Chronic Assessment and Plan: running on the soft side holding BP medications continue IVF resuscitation (6) Type 2 diabetes mellitus: Code(s): E11.9 - Type 2 diabetes mellitus without complications Status: Chronic Assessment and Plan: follow accuchecks glycemic control Will continue to follow. Subjective Date/time seen: 03/08/21 11:11 Renal function and respiratory status/breathing appears to be slowly improving with current interventions/therapy; no other acute problems to report at this time; no distress currently; no events/issues overnight or earlier this AM. Exam Narrative: General: WD/WN female in NAD Heart: normal S1 and S2; no rub Lungs: decreased at bases Abdomen: soft, nondistended, positive bowel sounds Extremities: no cyanosis or clubbing; no edema Skin: no rash or nodules Objective Data Vital Signs Vital Signs: Vital Signs Temp Pulse Resp BP Pulse Ox 03/08/21 06:00 36.3 C L 50 L 16 109/58 L 95 03/07/21 22:00 36.2 C L 69 18 107/66 96 03/07/21 17:40 36.2 C L 55 L 16 105/51 L 97 03/07/21 14:00 71 Intake/Output Intake/Output: Intake & Output 03/05/21 03/06/21 03/07/21 03/08/21 23:59 23:59 23:59 23:59 Intake Total 4040 1485 2760 1440 Output Total 270 803 2051 400 Balance 3140 735 -40 1040 Meds/Results Medications: Active Medications Generic Name Dose Route Start Last Admin Trade Name Freq PRN Reason Stop Dose Admin Acetaminophen 650 mg 03/07/21 16:12 Acetaminophen 325 Mg Tablet PO Q6H PRN Mild Pain (1-3) or Fever Dextrose 12.5 gm 03/04/21 21:06 Dextrose 50% 25 Gm/50 Ml Syringe IV PUSH PRN PRN Hypoglycemia Protocol Glucagon 1 mg 03/04/21 21:06 Glucagon For Inj 1 Mg Vial IM PRN PRN Hypoglycemia Protocol Glucose 15 gm 03/04/21 21:06 Glucose Oral Gel 15 Gm Of Glucse In 37.5 Gm Tube PO PRN PRN Hypoglycemia Protocol Azithromycin 500 mg in 250 mls @ 250 mls/hr 03/05/21 15:00 03/07/21 17:38 Zithromax IVPB Infused Q24H MARIA DOLORES Infusion Dextrose 1,000 mls @ 100 mls/hr 03/04/21 21:06 Dextrose 5% 1,000 Ml IVPB PRN PRN Hypoglycemia Protocol Sodium Chloride 1,000 mls @ 75 mls/hr 03/06/21 12:15 03/08/21 05:32 Normal Saline Iv IV CONT 75 mls/hr .[id number] MARIA DOLORES Administration Ceftriaxone Sodium/Dextrose 1 gm in 50 mls @ 100 mls/hr 03/07/21 21:00 03/08/21 04:38 Rocephin 1 Gm/D5w 50 Ml IVPB Infused Q24H MARIA DOLORES Infusion Calcium Gluconate 2,000 mg in 100 mls @ 100 mls/hr
--- NOTE | 2021-03-08 11:11 | P.PNNP_ITS ---
Progress Note: A&P Assessment and Plan (1) Acute kidney injury: Code(s): N17.9 - Acute kidney failure, unspecified Status: Acute Assessment and Plan: * improving * suspect multifactorial: * volume depletion/prerenal factors * concurrent use of JYOTSNA-I and HCTZ + metformin prior to admission * infection/sepsis (PNA + UTI) * evaluation to date: * no acute issues with regard to kidneys on CT of abdomen/pelvis and renal ultrasound * urine electrolyte non-prerenal * CPK okay * follow trend of repeat labs and UOP (2) Sepsis: Code(s): A41.9 - Sepsis, unspecified organism Status: Acute Assessment and Plan: * supported by evidence on admission -- tachycardia, leukocytosis, elevated lactic acid level along with MOY in the setting of infection (UTI + pneumonia) * lactic acid improving s/p IVF resuscitation * follow culture data * follow trend of hemodynamics (3) Pneumonia: Code(s): J18.9 - Pneumonia, unspecified organism Status: Acute Assessment and Plan: * as suggested by imaging to date * follow cultures * on IV antibiotics (4) Acute UTI: Code(s): N39.0 - Urinary tract infection, site not specified Status: Acute Assessment and Plan: * urine culture with Klebsiella * on antibiotics (5) Hypertension: Code(s): I10 - Essential (primary) hypertension Status: Chronic Assessment and Plan: * running on the soft side * holding BP medications * continue IVF resuscitation (6) Type 2 diabetes mellitus: Code(s): E11.9 - Type 2 diabetes mellitus without complications Status: Chronic Assessment and Plan: * follow accuchecks * glycemic control Will continue to follow. Subjective Date/time seen: 03/08/21 11:11 Renal function and respiratory status/breathing appears to be slowly improving with current interventions/therapy; no other acute problems to report at this time; no distress currently; no events/issues overnight or earlier this AM. Exam Narrative: General: WD/WN female in NAD Heart: normal S1 and S2; no rub Lungs: decreased at bases Abdomen: soft, nondistended, positive bowel sounds Extremities: no cyanosis or clubbing; no edema Skin: no rash or nodules Objective Data Vital Signs Vital Signs: Vital Signs Temp Pulse Resp BP Pulse Ox 03/08/21 06:00 36.3 C L 50 L 16 109/58 L 95 03/07/21 22:00 36.2 C L 69 18 107/66 96 03/07/21 17:40 36.2 C L 55 L 16 105/51 L 97 03/07/21 14:00 71 Intake/Output Intake/Output: Intake & Output 03/05/21 03/06/21 03/07/21 03/08/21 23:59 23:59 23:59 23:59 Intake Total 4040 1485 2760 1440 Output Total 619 185 1407 400 Balance 3140 735 -40 1040 Meds/Results Medications: Active Medications Generic Name Dose Route Start Last Admin Trade Name Freq PRN Reason Stop Dose Admin Acetaminophen 650 mg 03/07/21 16:12 Acetaminophen 325 Mg Tablet PO Q6H PRN Mild Pain (1-3) or Fever Dextrose 12.5 gm 03/04/21 21:06 Dextrose 50% 25 Gm/50 Ml Syringe IV PUSH PRN PRN Hypoglycemia Protocol Glucagon 1 mg 03/04/21 21:06 Gluca
[2021-03-08 11:19] LABS: Folic Acid 7.9 ng/mL (2.76->20)
--- NOTE | 2021-03-08 11:30 | PM.IMPN ---
Progress Note: A&P Assessment and Plan (1) Acute kidney injury: Code(s): N17.9 - Acute kidney failure, unspecified Status: Acute Assessment and Plan: continue iv fluids, creat is 2.7, nephrology on board continue to monitor MOY secondary to dehydration (2) Sepsis: Code(s): A41.9 - Sepsis, unspecified organism Status: Acute Assessment and Plan: Severe sepsis Present on admission and supported by tachycardia, leukocytosis, elevated lactic acid level, and acute kidney injury in the setting of pneumonia and urinary tract infection. Treated with IV fluid IV rocephin and zithromax (3) Pneumonia: Code(s): J18.9 - Pneumonia, unspecified organism Status: Acute Assessment and Plan: She has been started on iv rocephin and zithromax, covid is negative (4) Metabolic acidosis: Code(s): E87.2 - Acidosis Status: Resolved (5) Urinary tract infection: Code(s): N39.0 - Urinary tract infection, site not specified Status: Acute Assessment and Plan: Positive for Klebsiella UTI sensitive to rocephin continue IV rocephin monitor WCC (6) Hypertension: Code(s): I10 - Essential (primary) hypertension Status: Acute Assessment and Plan: Continue to hold Hydrochlorothiazide and lisinopril (7) Type 2 diabetes mellitus: Code(s): E11.9 - Type 2 diabetes mellitus without complications Status: Acute Assessment and Plan: Metformin on hold. Initiate sliding scale insulin, Accu-Cheks, and hypoglycemic protocol. (8) Anemia: Code(s): D64.9 - Anemia, unspecified Status: Acute Assessment and Plan: B12 is low continue B12 supplement (9) Peptic ulcer disease: Code(s): K27.9 - Peptic ulcer, site unspecified, unspecified as acute or chronic, without hemorrhage or perforation Status: Acute Assessment and Plan: Continue PPI. Gastric and duodenal ulcers noted on EGD in November 2020. (10) Metabolic encephalopathy: Code(s): G93.41 - Metabolic encephalopathy Status: Acute Assessment and Plan: Secondary to infection, acute kidney injury, and electrolyte abnormalities. CT head was negative - 1. No acute intracranial findings. 2. Chronic age related finding (11) Hypocalcemia: Code(s): E83.51 - Hypocalcemia Status: Acute (12) Hypokalemia: Code(s): E87.6 - Hypokalemia Status: Acute Additional Plan 03/08/21 K and Ca repleted STAT mg pending renal failure impoving BG at goal leukocytosis down trending continue IV antibiotic therapy patient afebrile on room air cont current care Subjective Date/time seen: 03/08/21 11:30 patient reports that she is feeling okay she does not remember why she has a Hartman catheter inserted she does not have any abdominal pain she has please do note that her renal function is improving. Patient is complaining of weakness of her lower extremities because she has been lying in the bed too long PT is present and about to help her get up to chair. Exam Narrative: GEN: NAD, AAOx3, cooperative, hard of hearing HEENT: NCAT, MMM, EOMI Neck: no JVD Heart: S1S2 RRR Lungs: CTA B/l Abd: soft, NT, ND, bowel sounds normoactive Ext: moves all, no cyanosis, no clubbing, no edema Neuro: cranial nerves intact moves all extremities no focal neurological deficits appreciated Psych: mood and affect congruent Objective Data Vital Signs Vital Signs: Vital Signs - 24 hr 03/07/21 12:00 03/07/21 14:00 03/07/21 17:40 Temperature 97.5 F L 97.1 F L Pulse Rate 61 71 55 L Respiratory Rate 14 16 Blood Pressure 111/54 L 105/51 L Pulse Oximetry 93 97 03/07/21 22:00 03/08/21 06:00 Temperature 97.2 F L 97.4 F L Pulse Rate 69 50 L Respiratory Rate 18 16 Blood Pressure 107/66 109/58 L Pulse Oximetry 96 95 Intake/Output Intake/Output: Intake & Output 03/05/21 03/06/21 03/07/21
[2021-03-08 11:43] LABS: Magnesium 1.5 mg/dL (1.6-2.3)
[2021-03-08 12:04] LABS: Glucose Point of Care 110 mg/dl (65-105)
[2021-03-08] MEDS: CALCIUM GLUC 2,000 MG/NS 100ML 2,000 MG/100 ML BAG 100 MG IVPB (12:21)
[2021-03-08 14:04] VITALS: BP 129/40; PULSE 56; RESP 14; TEMP 36.4; O2SAT 97
[2021-03-08 17:04] LABS: Glucose Point of Care 149 mg/dl (65-105)
[2021-03-08 19:23] LABS: Pneumococcal Antigen Urine Not Detected (Not Detected)
[2021-03-08 20:08] LABS: Glucose Point of Care 145 mg/dl (65-105)
[2021-03-08] MEDS: SIMVASTATIN 20 MG TABLET 40 MG PO (20:10)
[2021-03-08 22:00] VITALS: BP 116/54; PULSE 50; RESP 18; TEMP 36.2; O2SAT 97
[2021-03-09 03:22] LABS: Legionella pneumophila Ag Ur Not Detected (Not Detected)
[2021-03-09 06:00] VITALS: BP 131/62; PULSE 61; RESP 18; TEMP 36.5; O2SAT 95
[2021-03-09 06:49] LABS: Albumin Level 3.1 g/dL (3.5-5.1); Anion Gap 9 mmol/L (8-16); Blood Urea Nitrogen 26 mg/dL (7-17); Calcium 7.8 mg/dL (8.4-10.2); Carbon Dioxide 30 mmol/L (22-30); Chloride 100 mmol/L (98-107); Estimated CRCL calculation 28 ml/min; Estimated Glomerular Filt Rate 37; Glucose 121 mg/dL (65-110); Phosphorus 3.3 mg/dL (2.5-4.5); Potassium 3.1 mmol/L (3.4-5.0); Sodium 139 mmol/L (137-145)
[2021-03-09 08:12] LABS: Glucose Point of Care 89 mg/dl (65-105)
[2021-03-09] MEDS: POTASSIUM CHLORIDE 20 MEQ PACKET (FOR LIQUID) 40 MEQ PO (09:01)
[2021-03-09] MEDS: MIDODRINE HCL 2.5 MG TABLET 5 MG PO ×2 (09:01→13:32)
[2021-03-09] MEDS: PANTOPRAZOLE 40 MG TABLET PO (09:01)
--- NOTE | 2021-03-09 10:13 | PCPTNOTE ---
Pt refused to get out of bed at this time. When asked if we could do some exercises while the pt is in bed she didn't respond. Will check back later in the PM.
[2021-03-09] MEDS: SODIUM CHLORIDE 0.9% IV 1,000 ML 75 ML IV CONT (10:50)
--- NOTE | 2021-03-09 10:56 | PM.DS ---
DS: Admitting Diagnosis Discharge Date 03/09/21 Admitting Diagnosis (1) Acute kidney injury: Code(s): N17.9 - Acute kidney failure, unspecified Status: Acute Assessment and Plan: Most likely related to hypovolemia from dehydration due to poor oral intake, vomiting, and diarrhea. Cannot rule out a component of ATN from sepsis. Hartman catheter has been placed for strict I/O and it drained approximately 200 cc on insertion. Renal ultrasound as well as urine electrolytes have been ordered for further evaluation. Dr. Valdez has also been consulted and his input is greatly appreciated. (2) Sepsis: Code(s): A41.9 - Sepsis, unspecified organism Status: Acute Assessment and Plan: Present on admission and supported by tachycardia, leukocytosis, elevated lactic acid level, and acute kidney injury in the setting of pneumonia and urinary tract infection. Lactic acid has improved with IV fluid rehydration. Blood and urine cultures pending. Attempt sputum for culture as well. (3) Pneumonia: Code(s): J18.9 - Pneumonia, unspecified organism Status: Acute Assessment and Plan: She has been started on azithromycin and ceftriaxone. Attempt sputum for culture. Will send specimens for Legionella and urinary antigens as well. She will remain in isolation pending SARS-CoV-2 by PCR. (4) Metabolic acidosis: Code(s): E87.2 - Acidosis Status: Acute Assessment and Plan: ABG consistent with metabolic acidosis and probably some component of respiratory acidosis as well. Metabolic acidosis is likely multifactorial and due to renal failure, bicarbonate loss from diarrhea, and lactic acidosis. Her anion gap on arrival was 24 and while her beta hydroxybutyrate was a bit elevated, she had no ketones in her urine and her glucose has been in the low 120s. After discussions with Dr. Valdez, she was given 2 amps of sodium bicarbonate and has been started on a sodium bicarbonate drip with 150 mEq in sterile water. Continue to monitor chemistries closely for gap closure. (5) Urinary tract infection: Code(s): N39.0 - Urinary tract infection, site not specified Status: Acute Assessment and Plan: She is on ceftriaxone, pending urine culture. (6) Hypertension: Code(s): I10 - Essential (primary) hypertension Status: Acute Assessment and Plan: Blood pressures were reviewed and they were soft on arrival to the ER but have improved with IV fluids. Hydrochlorothiazide and lisinopril are currently on hold. Continue to monitor blood pressures closely. (7) Type 2 diabetes mellitus: Code(s): E11.9 - Type 2 diabetes mellitus without complications Status: Acute Assessment and Plan: Glucose has been running in the low 100s. Metformin on hold. Initiate sliding scale insulin, Accu-Cheks, and hypoglycemic protocol. Check hemoglobin A1c (8) Anemia: Code(s): D64.9 - Anemia, unspecified Status: Acute Assessment and Plan: Check iron studies as well as B12 and folates. (9) Peptic ulcer disease: Code(s): K27.9 - Peptic ulcer, site unspecified, unspecified as acute or chronic, without hemorrhage or perforation Status: Acute Assessment and Plan: Continue PPI. Gastric and duodenal ulcers noted on EGD in November 2020. (10) Metabolic encephalopathy: Code(s): G93.41 - Metabolic encephalopathy Status: Acute Assessment and Plan: Secondary to infection, acute kidney injury, and electrolyte abnormalities. Once more stable will send for brain CT to ensure no intracranial pathology though that seems less likely. Continue neurologic checks q.4 hours. DS: Discharge Diagnosis Discharge Diagnosis (1) Acute kidney injury: Code(s): N17.9 - Acute kidney failure, unspecified Status: Acute Assessment and Plan: continue iv fluids, creat is 2.7, nephrology on board continue to monitor MOY second
[2021-03-09] MEDS: MAGNESIUM SULFATE 3GM/D5W100ML 3 GM/100 ML BAG IVPB (11:16)
[2021-03-09 11:27] LABS: Glucose Point of Care 156 mg/dl (65-105)
--- NOTE | 2021-03-09 11:37 | PM.IMPN ---
Progress Note: A&P Assessment and Plan (1) Acute kidney injury: Code(s): N17.9 - Acute kidney failure, unspecified Status: Acute Assessment and Plan: continue iv fluids, creat is 2.7, nephrology on board continue to monitor MOY secondary to dehydration (2) Sepsis: Code(s): A41.9 - Sepsis, unspecified organism Status: Acute Assessment and Plan: Severe sepsis Present on admission and supported by tachycardia, leukocytosis, elevated lactic acid level, and acute kidney injury in the setting of pneumonia and urinary tract infection. Treated with IV fluid IV rocephin and zithromax (3) Pneumonia: Code(s): J18.9 - Pneumonia, unspecified organism Status: Acute Assessment and Plan: She has been started on iv rocephin and zithromax, covid is negative (4) Metabolic acidosis: Code(s): E87.2 - Acidosis Status: Acute (5) Urinary tract infection: Code(s): N39.0 - Urinary tract infection, site not specified Status: Acute Assessment and Plan: Positive for Klebsiella UTI sensitive to rocephin continue IV rocephin monitor WCC (6) Hypertension: Code(s): I10 - Essential (primary) hypertension Status: Chronic Assessment and Plan: Continue to hold Hydrochlorothiazide and lisinopril (7) Type 2 diabetes mellitus: Code(s): E11.9 - Type 2 diabetes mellitus without complications Status: Chronic Assessment and Plan: Metformin on hold. Initiate sliding scale insulin, Accu-Cheks, and hypoglycemic protocol. (8) Anemia: Code(s): D64.9 - Anemia, unspecified Status: Acute Assessment and Plan: B12 is low continue B12 supplement (9) Peptic ulcer disease: Code(s): K27.9 - Peptic ulcer, site unspecified, unspecified as acute or chronic, without hemorrhage or perforation Status: Acute Assessment and Plan: Continue PPI. Gastric and duodenal ulcers noted on EGD in November 2020. (10) Metabolic encephalopathy: Code(s): G93.41 - Metabolic encephalopathy Status: Acute Assessment and Plan: Secondary to infection, acute kidney injury, and electrolyte abnormalities. CT head was negative - 1. No acute intracranial findings. 2. Chronic age related finding (11) Hypocalcemia: Code(s): E83.51 - Hypocalcemia Status: Acute (12) Hypokalemia: Code(s): E87.6 - Hypokalemia Status: Acute Additional Plan 03/08/21 K and Ca repleted STAT mg pending renal failure improving BG at goal leukocytosis down trending continue IV antibiotic therapy patient afebrile on room air cont current care March 09, 2021 DC Hartman potentially but magnesium repeated today renal function continues to improve Blood glucose remains at goal anticipate discharge to snf facility tomorrow after insurance authorization received I have ordered three additional doses of Levaquin q.48h to complete pneumonia treatment continue supportive care Subjective Date/time seen: 03/09/21 11:37 patient has completed five days of azithromycin and septic dry access on did is she cover her pneumonia as well as her Klebsiella UTI. Attempt made to discharge patient today to snf facility with Levaquin 750 Q 48 hours for three doses, however, she has not received insurance authorization yet. Exam Narrative: GEN: NAD, AAOx3, cooperative , hard of hearing, slow to respond but does respond appropriately HEENT: NCAT, MMM, EOMI Neck: no JVD Heart: S1S2 RRR Lungs: CTA B/l Abd: soft, NT, ND, bowel sounds normoactive Ext: moves all, no cyanosis, no clubbing, no edema Neuro: generalized weakness cranial nerves intact Psych: mood affect congruent flattened Objective Data Vital Signs Vital Signs: Vital Signs - 24 hr 03/08/21 14:04 03/08/21 22:00 03/09/21 06:00 Temperature 97.5 F L 97.1 F L 97.7 F Pulse Rate 56 L 50
--- NOTE | 2021-03-09 11:43 | P.PNNP_ITS ---
Progress Note: A&P Assessment and Plan (1) Acute kidney injury: Code(s): N17.9 - Acute kidney failure, unspecified Status: Acute Assessment and Plan: * improving * suspect multifactorial: * volume depletion/prerenal factors * concurrent use of JYOTSNA-I and HCTZ + metformin prior to admission * infection/sepsis (PNA + UTI) * evaluation to date: * no acute issues with regard to kidneys on CT of abdomen/pelvis and renal ultrasound * urine electrolyte non-prerenal * CPK okay * follow trend of repeat labs and UOP (2) Sepsis: Code(s): A41.9 - Sepsis, unspecified organism Status: Acute Assessment and Plan: * supported by evidence on admission -- tachycardia, leukocytosis, elevated lactic acid level along with MOY in the setting of infection (UTI + pneumonia) * lactic acid improving s/p IVF resuscitation * follow culture data * follow trend of hemodynamics (3) Pneumonia: Code(s): J18.9 - Pneumonia, unspecified organism Status: Acute Assessment and Plan: * as suggested by imaging to date * follow cultures * on IV antibiotics (4) Acute UTI: Code(s): N39.0 - Urinary tract infection, site not specified Status: Acute Assessment and Plan: * urine culture with Klebsiella * on antibiotics (5) Hypertension: Code(s): I10 - Essential (primary) hypertension Status: Chronic Assessment and Plan: * running on the soft side on admission but better now * BP medications with parameters * continue IVF resuscitation and wean off (6) Type 2 diabetes mellitus: Code(s): E11.9 - Type 2 diabetes mellitus without complications Status: Chronic Assessment and Plan: * follow accuchecks * glycemic control Will continue to follow. Subjective Date/time seen: 03/09/21 11:43 Tolerating antibiotic therapy for pneumonia and UTI; initial plan was possible discharge today but still awaiting insurance authorization; no other acute complaints voiced; renal function continues to improve/stabilize; no other issues/events overnight or earlier this morning. Exam Narrative: General: WD/WN female in NAD Heart: normal S1 and S2; no rub Lungs: decreased at bases Abdomen: soft, nondistended, positive bowel sounds Extremities: no cyanosis or clubbing; no edema Skin: warm and dry Objective Data Vital Signs Vital Signs: Vital Signs Temp Pulse Resp BP Pulse Ox 03/09/21 06:00 36.5 C 61 18 131/62 95 03/08/21 22:00 36.2 C L 50 L 18 116/54 L 97 Intake/Output Intake/Output: Intake & Output 03/06/21 03/07/21 03/08/21 03/09/21 23:59 23:59 23:59 23:59 Intake Total 1485 2760 3200 1880 Output Total 750 2800 1125 1075 Balance 735 -40 2075 805 Meds/Results Medications: Active Medications Generic Name Dose Route Start Last Admin Trade Name Freq PRN Reason Stop Dose Admin Acetaminophen 650 mg 03/07/21 16:12 Acetaminophen 325 Mg Tablet PO Q6H PRN Mild Pain (1-3) or Fever Dextrose 12.5 gm 03/04/21 21:06 Dextrose 50% 25 Gm/50 Ml Syringe IV PUSH PRN PRN Hypoglycemia Protocol Glucagon 1 mg 03/04/21 21:06 Glucagon For
--- NOTE | 2021-03-09 11:43 | PM.PNNEP ---
Progress Note: A&P Assessment and Plan (1) Acute kidney injury: Code(s): N17.9 - Acute kidney failure, unspecified Status: Acute Assessment and Plan: improving suspect multifactorial: volume depletion/prerenal factors concurrent use of JYOTSNA-I and HCTZ + metformin prior to admission infection/sepsis (PNA + UTI) evaluation to date: no acute issues with regard to kidneys on CT of abdomen/pelvis and renal ultrasound urine electrolyte non-prerenal CPK okay follow trend of repeat labs and UOP (2) Sepsis: Code(s): A41.9 - Sepsis, unspecified organism Status: Acute Assessment and Plan: supported by evidence on admission -- tachycardia, leukocytosis, elevated lactic acid level along with MOY in the setting of infection (UTI + pneumonia) lactic acid improving s/p IVF resuscitation follow culture data follow trend of hemodynamics (3) Pneumonia: Code(s): J18.9 - Pneumonia, unspecified organism Status: Acute Assessment and Plan: as suggested by imaging to date follow cultures on IV antibiotics (4) Acute UTI: Code(s): N39.0 - Urinary tract infection, site not specified Status: Acute Assessment and Plan: urine culture with Klebsiella on antibiotics (5) Hypertension: Code(s): I10 - Essential (primary) hypertension Status: Chronic Assessment and Plan: running on the soft side on admission but better now BP medications with parameters continue IVF resuscitation and wean off (6) Type 2 diabetes mellitus: Code(s): E11.9 - Type 2 diabetes mellitus without complications Status: Chronic Assessment and Plan: follow accuchecks glycemic control Will continue to follow. Subjective Date/time seen: 03/09/21 11:43 Tolerating antibiotic therapy for pneumonia and UTI; initial plan was possible discharge today but still awaiting insurance authorization; no other acute complaints voiced; renal function continues to improve/stabilize; no other issues/events overnight or earlier this morning. Exam Narrative: General: WD/WN female in NAD Heart: normal S1 and S2; no rub Lungs: decreased at bases Abdomen: soft, nondistended, positive bowel sounds Extremities: no cyanosis or clubbing; no edema Skin: warm and dry Objective Data Vital Signs Vital Signs: Vital Signs Temp Pulse Resp BP Pulse Ox 03/09/21 06:00 36.5 C 61 18 131/62 95 03/08/21 22:00 36.2 C L 50 L 18 116/54 L 97 Intake/Output Intake/Output: Intake & Output 03/06/21 03/07/21 03/08/21 03/09/21 23:59 23:59 23:59 23:59 Intake Total 1485 2760 3200 1880 Output Total 750 2800 1125 1075 Balance 735 -40 2075 805 Meds/Results Medications: Active Medications Generic Name Dose Route Start Last Admin Trade Name Freq PRN Reason Stop Dose Admin Acetaminophen 650 mg 03/07/21 16:12 Acetaminophen 325 Mg Tablet PO Q6H PRN Mild Pain (1-3) or Fever Dextrose 12.5 gm 03/04/21 21:06 Dextrose 50% 25 Gm/50 Ml Syringe IV PUSH PRN PRN Hypoglycemia Protocol Glucagon 1 mg 03/04/21 21:06 Glucagon For Inj 1 Mg Vial IM PRN PRN Hypoglycemia Protocol Glucose 15 gm 03/04/21 21:06 Glucose Oral Gel 15 Gm Of Glucse In 37.5 Gm Tube PO PRN PRN Hypoglycemia Protocol Azithromycin 500 mg in 250 mls @ 250 mls/hr 03/05/21 15:00 03/09/21 14:20 Zithromax IVPB Not Given Q24H MARIA DOLORES Dextrose 1,000 mls @ 100 mls/hr 03/04/21 21:06 Dextrose 5% 1,000 Ml IVPB PRN PRN Hypoglycemia Protocol Sodium Chloride 1,000 mls @ 75 mls/hr 03/06/21 12:15 03/09/21 10:50 Normal Saline Iv IV CONT 75 mls/hr .[id number] MARIA DOLORES Administration Ceftriaxone Sodium/Dextrose 1 gm in 50 mls @ 100 mls/hr 03/07/21 21:00 03/08/21 20:41 Rocephin 1 Gm/D5w 50 Ml IVPB Infused Q24H MARIA DOLORES Infusion Midodrine 5 mg 03/05/21 17:00 03/09/21 13:3
[2021-03-09 13:15] LABS: EDCOVIDSCREEN Negative (Negative)
--- NOTE | 2021-03-09 17:44 | PM.DS ---
DS: Admitting Diagnosis Discharge Date 03/09/21 Admitting Diagnosis Nausea, vomiting, diarrhea. DS: Discharge Diagnosis Discharge Diagnosis (1) Hypokalemia: Code(s): E87.6 - Hypokalemia Status: Acute (2) Hypocalcemia: Code(s): E83.51 - Hypocalcemia Status: Acute (3) Metabolic encephalopathy: Code(s): G93.41 - Metabolic encephalopathy Status: Acute (4) Anemia: Code(s): D64.9 - Anemia, unspecified Status: Acute (5) Type 2 diabetes mellitus: Code(s): E11.9 - Type 2 diabetes mellitus without complications Status: Chronic (6) Hypertension: Code(s): I10 - Essential (primary) hypertension Status: Chronic (7) Metabolic acidosis: Code(s): E87.2 - Acidosis Status: Acute (8) Pneumonia: Code(s): J18.9 - Pneumonia, unspecified organism Status: Acute (9) Acute kidney injury: Code(s): N17.9 - Acute kidney failure, unspecified Status: Acute (10) Sepsis: Code(s): A41.9 - Sepsis, unspecified organism Status: Acute (11) Urinary tract infection: Code(s): N39.0 - Urinary tract infection, site not specified Status: Acute (12) Hyperlipidemia: Code(s): E78.5 - Hyperlipidemia, unspecified Status: Acute (13) Acute kidney injury: Code(s): N17.9 - Acute kidney failure, unspecified Status: Acute (14) UTI due to Klebsiella species: Code(s): N39.0 - Urinary tract infection, site not specified; B96.89 - Other specified bacterial agents as the cause of diseases classified elsewhere Status: Acute DS: Summary Hospital Course Reason for hospitalization: Nausea, vomiting, diarrhea. Hospital Course: 70-year-old female admitted to the hospital septic w dehydration, MOY, and pneumonia. She was treated IV abx and IVFs. Nephrology was consulted patient has completed five days of azithromycin and rocephin x her pneumonia as well as her Klebsiella UTI. Pt discharged to assisted facility [facility] with Levaquin 750 Q 48 hours for three doses. Time Spent with Patient Time attestation: Total time spent providing and/or coordinating discharge services: > 30min Exam Narrative: GEN: NAD, AAOx3, cooperative , hard of hearing, slow to respond but does respond appropriately HEENT: NCAT, MMM, EOMI Neck: no JVD Heart: S1S2 RRR Lungs: CTA B/l Abd: soft, NT, ND, bowel sounds normoactive Ext: moves all, no cyanosis, no clubbing, no edema Neuro: generalized weakness cranial nerves intact Psych: mood affect congruent flattened Discharge Plan Discharge Attending physician on discharge: Lucrecia Liu Consulting providers: Gadiel Valdez ; Andrew Andino M.A. ; Jai Salas ; Prosper Vyas ; Michael Lisa ; Otto Joy ; Pippa Cai ; Viji Valdez ; Khoi Correa ; Niya Atwood ; Vu Goodman V. Discharging Clinician: Lucrecia Liu Anticipated Discharge Date/Time: 03/09/21 10:43 Patient Disposition: SNF Activity: as tolerated Diet: heart healthy and diabetic Patient Instructions: Urinary Tract Infection in Women (DC), Metabolic Acidosis (GEN) Stand Alone Forms: General Discharge Information, [facility] Discharge Follow-up/Referrals: PHYSICIAN NOT ON STAFF,NONSTAFF [Primary Care Provider] - Discharge Medications: New midodrine 2.5 mg Tablet 5 mg PO TID 90 Days Qty: 540 RF: 0 levofloxacin 750 mg tablet 750 mg PO Q48H Qty: 3 RF: 0 Continued simvastatin 40 mg tablet 40 mg PO HS RF: 0 Hold Instructions: resume when okay with the provider metformin 1,000 mg tablet 1,000 mg PO BID RF: 0 Hold Instructions: Resume when okay with doctor lisinopril-hydrochlorothiazide 20-12.5 mg tablet 1 tablet PO DAILY RF: 0 acetaminophen [Mapap (acetaminophen)] 325 mg Tablet 650 mg PO Q4H PRN (Reason: Mild Pain (1-3) Or Fever) Qty: 0 RF: 0 pantoprazole 40 mg Tablet,Alta
[2021-03-10 07:35] LABS: Osmolality, Urine 322 mOsm/kg (50-1200)
[2021-03-11 23:09] LABS: Chloride Rand Ur 76 mmol/L (32-290); Chloride/Creatinine Rand Ur 103 (38-318); Creatinine Random Urine 74 mg/dL (20-275)
== END 2021-03-09 15:10 | DRG 871 ==
LOC: ANHED 15:07 → ANH3MEDSUR 16:14 → ANHIMU 03-05 03:31 → ANH3MED 03-09 10:55 → ANH3MEDSUR 03-11 08:49 → ANHIMU 03-11 08:49
PROVIDERS: Emergency Medicine; Family Medicine; Internal Medicine; Internal Medicine Nephrology; Physician Assistant; Admitting Provider Internal Medicine; Emergency Provider Emergency Medicine; Visit Provider Hospitalist
DX: A41.9 Sepsis, unspecified organism (principal); J18.9 Pneumonia, unspecified organism; G93.41 Metabolic encephalopathy; N17.9 Acute kidney failure, unspecified; E87.2 Acidosis; N39.0 Urinary tract infection, site not specified; R65.20 Severe sepsis without septic shock; B96.1 Klebsiella pneumoniae [K. pneumoniae] as the cause of diseases classified elsewhere; Z20.822 Contact with and (suspected) exposure to COVID-19; E86.0 Dehydration; I10 Essential (primary) hypertension; E11.9 Type 2 diabetes mellitus without complications; K27.9 Peptic ulcer, site unspecified, unspecified as acute or chronic, without hemorrhage or perforation; E78.5 Hyperlipidemia, unspecified; D50.9 Iron deficiency anemia, unspecified; D51.9 Vitamin B12 deficiency anemia, unspecified; E83.51 Hypocalcemia; E87.6 Hypokalemia; Z28.21 Immunization not carried out because of patient refusal; Z79.84 Long term (current) use of oral hypoglycemic drugs; Z79.899 Other long term (current) drug therapy
CPT/HCPCS: 36415; 36600; 51701; 70450; 71045; 71250; 74176; 76775; 80048; 80053; 80069; 80076; 81001; 82010; 82375; 82436; 82533; 82550; 82570; 82607; 82728; 82746; 82805; 82948; 83050; 83540; 83550; 83605; 83690; 83735; 83930; 83935; 84100; 84133; 84156; 84300; 84439; 84443; 84480; 85025; 85027; 85652; 85999; 86140; 86160; 87040; 87077; 87086; 87088; 87186; 87426; 87449; 87899; 93005; 93306; 93970; 96361; 96365; 96375; 97110; 97161; 97166; 97530; 99285; A9270; C9803; J0456; J0610; J0696; J1815; J2270; J2405; J2543; J3475; J7030; J7050; J7070; U0003; U0005

== ENCOUNTER 2022-01-01 14:06 | Emergency (ER) | payer OTHER, SELFPAY ==
--- NOTE | ~2022-01-01 | CT_ITS ---
EXAMINATION: CT brain wo con DATE: 01/01/2022 14:51 INDICATION: Head injury. Headache. TECHNIQUE: Computed tomography (CT) of the head was performed without intravenous contrast. The mA wa s adjusted according to patient size. Iterative reconstruction technique was employed. The dose-lengt h product was 681.00 mGy-cm. COMPARISON: Head CT 03/05/2021 FINDINGS: There is old lacunar infarct in the right basal ganglia. There are scattered areas of low a ttenuation in the cerebral white matter. There is no intracranial hemorrhage, acute infarction, or ab normal intracranial mass lesion. The ventricles are normal in size. There are likely changes of ocula r lens replacement surgeries. There is frontal scalp soft tissue swelling. There is mild mucosal thic kening in the ethmoid sinuses. The mastoid air cells are normal. There is cerumen in the external aud itory canals bilaterally. IMPRESSION: 1. Old lacunar infarct in the right basal ganglia. 2. Extensive nonspecific cerebral white matter disease, which likely represents chronic small vessel ischemic disease. Reviewed, dictated and finalized at location A.
[2022-01-01 14:10] VITALS: BP 121/97; PULSE 99; RESP 18; TEMP 36.6; O2SAT 99
--- NOTE | 2022-01-01 14:35 | ED.GENADULT ---
HPI - General Adult General Chief complaint: Head Injury Stated complaint: fall Time Seen by Provider: 01/01/22 14:06 History of Present Illness HPI narrative: 71-year-old female presented to the emergency department from [facility] for evaluation after having a ground-level fall. Patient was ambulating with a walker and fell. Patient did fall forward and strike her head but did not have any loss of consciousness. Patient does have a hematoma but denies any pain or complaints. Related Data Home Medications Medication Instructions Recorded Confirmed metformin 1,000 mg tablet 1,000 mg PO BID 08/07/20 03/04/21 simvastatin 40 mg tablet 40 mg PO HS 08/07/20 03/04/21 lisinopril 20 1 tablet PO DAILY 11/21/20 03/04/21 mg-hydrochlorothiazide 12.5 mg tablet Allergies Allergy/AdvReac Type Severity Reaction Status Date / Time No Known Allergies Allergy Verified 11/26/20 10:07 Review of Systems Review of Systems: CONSTITUTIONAL: Denies fever, chills, or sweats. EYES: Denies visual changes, redness, or discharge. ENT: Denies rhinorrhea, congestion, sore throat, or otalgia. CARDIOVASCULAR: Denies chest pain, palpitations, or edema. RESPIRATORY: Denies cough or dyspnea. GASTROINTESTINAL: Denies abdominal pain, nausea, vomiting, or diarrhea. GENITOURINARY: Denies dysuria or hematuria. SKIN: Hematoma to forehead MUSCULOSKELETAL: Denies back pain, joint pain, or myalgia. NEUROLOGIC: Denies headache, numbness, or weakness. [facility] Past Medical History Medical History B12 deficiency anemia Fracture of right hip (07/2020) Nondisplaced fracture of the right posterior superior tip of the greater trochanter, treated conservatively. Hyperlipidemia Hypertension Iron deficiency anemia Peptic ulcer disease Gastric and duodenal ulcers noted on EGD on 11/26/[address] Singh. Type 2 diabetes mellitus Surgical History Surgical History History of cholecystectomy History of elbow surgery Left. History of esophagogastroduodenoscopy (11/26/20) For evaluation of iron deficiency anemia, found to have gastric and duodenal ulcers. History of open reduction and internal fixation (ORIF) procedure (05/2018) Repair of right radius fracture. History of partial hysterectomy Family History Family History (Updated 03/04/21 @ 23:55 by Pippa Cai PA-C) Sibling Diabetes mellitus Mother Heart disease Social History Social History (Updated 03/04/21 @ 23:53 by Pippa Cai PA-C) Social History: Surrogate decision-maker: Alba Hauser, niece. Code status: Full code. Smoking status: Never smoker Second hand tobacco smoke exposure: No Alcohol intake: never Substance use: never Substance use type: does not use Additional living arrangements comments: The patient lives in her own home in [place]. Additional occupation/education comments: Retired. Exam Narrative: APPEARANCE: Well appearing, no pain, no distress, well-nourished. HEAD: normocephalic, hematoma on forehead, no laceration EYES: PERRLA/EOMI, conjunctivae clear. NOSE: Normal no drainage NECK: Supple. No adenopathy, no masses. RESPIRATORY: Airway patent, respirations nonlabored. Clear to auscultation bilaterally, no rales, rhonchi, wheezing. CARDIOVASCULAR: Regular rate and rhythm without murmurs rubs or gallops. ABDOMINAL: Soft, nontender, nondistended, normal bowel sounds MUSCULOSKELETAL: Moves all extremities. Strength/ROM intact, No edema, No calf tenderness. NEURO: Alert. Cranial nerves II through XII intact. Grossly intact SKIN: Warm, dry. Normal Color Course Vital Signs Vital signs: Vital Signs Temperature 97.8 F 01/01/22 14:10 Pulse Rate 99 01/01/22 14:10 Respiratory Rate 18 01/01/22 14:10 Blood Pressure 121/97 H 01/01/22 14:10 Pulse Oximetry 99 01/01/22 14:10 Oxygen Delivery Room
== END 2022-01-01 15:25 ==
PROVIDERS: Emergency Provider Emergency Medicine
DX: S09.90XA Unspecified injury of head, initial encounter (principal); E78.5 Hyperlipidemia, unspecified; I10 Essential (primary) hypertension; E11.9 Type 2 diabetes mellitus without complications; D51.3 Other dietary vitamin B12 deficiency anemia; D50.9 Iron deficiency anemia, unspecified; Z90.711 Acquired absence of uterus with remaining cervical stump; Z87.11 Personal history of peptic ulcer disease; R90.82 White matter disease, unspecified; Z79.84 Long term (current) use of oral hypoglycemic drugs; W18.39XA Other fall on same level, initial encounter
CPT/HCPCS: 70450; 99284

== ENCOUNTER 2023-08-19 16:57 | Emergency (ER) | payer OTHER, SELFPAY ==
[2023-08-19 16:57] VITALS: BP 158/88; PULSE 93; RESP 18; TEMP 36.9; O2SAT 98
--- NOTE | 2023-08-19 17:56 | ED.EAR ---
HPI - Ear Problem General Chief complaint: Ear Stated complaint: hearing loss? Time Seen by Provider: 08/19/23 17:00 Source: patient Mode of arrival: EMS Limitations: no limitations History of Present Illness HPI Narrative: This is a 72-year-old female with PMH of T2 dm, PUD, HTN, HLD who presents to the ED via EMS from [facility] for chief complaint of bilateral hearing loss for the past couple of weeks. Patient reports that she feels both ears are clogged. This has become very bothersome to her. She was supposed to have an appointment tomorrow but decided to call EMS today because she cannot take it any longer. Denies any unilateral or sudden onset hearing loss. Denies any numbness, weakness, head injury, tinnitus, falls, headache. States she is otherwise asymptomatic Related Data Home Medications Medication Instructions Recorded Confirmed metformin 1,000 mg tablet 1,000 mg PO BID 08/07/20 03/04/21 simvastatin 40 mg tablet 40 mg PO HS 08/07/20 03/04/21 lisinopril 20 1 tablet PO DAILY 11/21/20 03/04/21 mg-hydrochlorothiazide 12.5 mg tablet Allergies Allergy/AdvReac Type Severity Reaction Status Date / Time No Known Allergies Allergy Verified 11/26/20 10:07 Review of Systems Review of Systems: All systems as dictated in [facility] Past Medical History Medical History B12 deficiency anemia Fracture of right hip (07/2020) Nondisplaced fracture of the right posterior superior tip of the greater trochanter, treated conservatively. Hyperlipidemia Hypertension Iron deficiency anemia Peptic ulcer disease Gastric and duodenal ulcers noted on EGD on 11/26/[address] Singh. Type 2 diabetes mellitus Surgical History Surgical History History of cholecystectomy History of elbow surgery Left. History of esophagogastroduodenoscopy (11/26/20) For evaluation of iron deficiency anemia, found to have gastric and duodenal ulcers. History of open reduction and internal fixation (ORIF) procedure (05/2018) Repair of right radius fracture. History of partial hysterectomy Family History Family History (Updated 03/04/21 @ 23:55 by Pippa Cai PA-C) Sibling Diabetes mellitus Mother Heart disease Social History Social History (Updated 03/04/21 @ 23:53 by Pippa Cai PA-C) Social History: Surrogate decision-maker: Alba Hauser, niece. Code status: Full code. Smoking status: Never smoker Second hand tobacco smoke exposure: No Alcohol intake: never Substance use: never Substance use type: does not use Additional living arrangements comments: The patient lives in her own home in [place]. Additional occupation/education comments: Retired. Exam Narrative: GENERAL: Well-appearing, well-nourished, and in no acute distress. HEAD: Normocephalic, atraumatic. EYES: PERRLA and EOMI. ENT: Tympanic membrane examination after nursing disimpacted cerumen. There are scant amounts of moist cerumen noted to the bilateral ear canals. The TMs are clear. No obvious infection of the ear canal or inner ear. Nares clear, no rhinorrhea or epistaxis. Mucous membranes moist. Oropharynx without tonsillar hypertrophy exudate or other lesions. NECK: Supple. No adenopathy or masses. CHEST: No respiratory distress. Clear to auscultation. No wheezes rales or rhonchi HEART: Regular rate and rhythm. No murmur heard. Normal peripheral pulses. ABDOMEN: Soft, nontender, nondistended, normal active bowel sounds. MSK: Normal range of motion. No edema. SKIN: Warm, dry, no rash. NEURO: Alert and oriented x3. No focal deficits. PSYCH: Normal mood and affect. Course Vital Signs Vital signs: Vital Signs Temperature 98.5 F 08/19/23 16:57 Pulse Rate 93 08/19/23 16:57 Respiratory Rate 18 08/19/23 16:57 Blood Pressure 158/88 H 08/19/23 16:57 Pulse O
[2023-08-19 18:15] VITALS: BP 149/88; PULSE 69; RESP 18; O2SAT 99
== END 2023-08-19 18:58 ==
PROVIDERS: Emergency Provider Physician Assistant
DX: H61.23 Impacted cerumen, bilateral (principal); I10 Essential (primary) hypertension; E11.9 Type 2 diabetes mellitus without complications; E78.5 Hyperlipidemia, unspecified; D51.9 Vitamin B12 deficiency anemia, unspecified; Z87.11 Personal history of peptic ulcer disease; Z90.49 Acquired absence of other specified parts of digestive tract; Z90.711 Acquired absence of uterus with remaining cervical stump; Z79.84 Long term (current) use of oral hypoglycemic drugs; Z79.899 Other long term (current) drug therapy
CPT/HCPCS: 69209; 99282